=== PATIENT | male | born 1940 | race Caucasian/White ===

== ENCOUNTER 2020-05-11 01:24 | Outpatient (CLI) | payer MEDICARE, SELFPAY ==
[2020-05-11 17:41] LABS: SARS-CoV-2 RNA PCR Negative
== END 2020-05-11 01:25 | disposition home or self-care (01) ==
LOC: ANHCOVIDDT 01:24
PROVIDERS: PCP Internal Medicine; Visit Provider Internal Medicine Gastroenterology
DX: Z01.812 Encounter for preprocedural laboratory examination (principal); Z20.828 Contact with and (suspected) exposure to other viral communicable diseases
CPT/HCPCS: 87635; C9803; U0003

== ENCOUNTER 2020-05-13 01:54 | Day surgery (SDC) | payer MEDICARE, SELFPAY ==
[2020-05-06 15:15] VITALS: BMI 31.4
[2020-05-13 07:42] VITALS: BP 140/63; PULSE 82; RESP 20; TEMP 36.2; O2SAT 95; BMI 31.6
[2020-05-13 08:03] LABS: Glucose Point of Care 94 (65-105)
[2020-05-13] MEDS: LACTATED RINGERS 1,000 ML 150 ML IV CONT (08:04)
--- NOTE | 2020-05-13 08:17 | WPDANESEPPF ---
Anes - Initial Pre Proc Eval Procedure: Operation Date: 05/13/20 08:30 Proposed Procedures p Esophagogastroduodenoscopy & Colonoscopy - Zachary Morley MD Date/Time: 05/13/20 08:17 Surgeon: Zachary Morley MD Pre Op Diagnosis: Iron Deficiency Anemia Patient Data Age: 79 Gender: M Height: 6 ft Weight: 105.6 kg Last Vital Signs Temp 97.2 F L 05/13/20 07:42 Pulse 82 05/13/20 07:42 Resp 20 05/13/20 07:42 BP 140/63 05/13/20 07:42 Pulse Ox 95 05/13/20 07:42 Allergies Allergy/AdvReac Type Severity Reaction Status Date / Time Sulfa (Sulfonamide Allergy Mild Rash Verified 05/13/20 07:40 Antibiotics) codeine Allergy Unknown DIFFICULTY Verified 05/13/20 07:40 BREATHING Home Medications Medication Instructions Recorded Confirmed Type acetaminophen [Tylenol Arthritis] 650 mg PO Q8H PRN 05/06/20 05/06/20 History atorvastatin 40 mg PO DAILY 05/06/20 05/06/20 History cetirizine [Zyrtec] 5 mg PO BID 05/06/20 05/06/20 History citalopram 20 mg PO DAILY 05/06/20 05/06/20 History cyanocobalamin (vitamin B-12) MONTHLY 05/06/20 History folic acid 1 mg PO DAILY 05/06/20 05/06/20 History metformin 1,000 mg PO BID 05/06/20 05/06/20 History triamterene-hydrochlorothiazid 1 tablet PO DAILY 05/06/20 05/06/20 History Laboratory Tests 05/13/20 07:58 POC Capillary Glucose 94 mg/dl mg/dl (65-105) Patient hx anesthesia problems: none Family hx anesthesia problems: none PMFSH Past Medical History Medical History (Updated 05/13/20 @ 08:17 by Uriah Stallworth MD) COPD (chronic obstructive pulmonary disease) Depression Diabetes Hyperlipidemia Hypertension Social History Social History Years smoked: 25 Smoking status: Former smoker Tobacco type: cigarettes Alcohol use details: Rarely Substance use: never Substance use type: does not use Living arrangements: with family Anes - Eval Final PreProcedure Day of Procedure 05/13/20 08:17 Patient weight: overweight Heart: regular rate and rhythm Lungs: clear to auscultation Airway: Mallampati scale class II Neurological: alert and oriented Last oral intake: >/= 8 hours ASA classification: III Emergent: no Anesthetic plan: proceed Anesthesia type and monitoring: general GIVS and standard monitoring Informed Consent: The patient's anesthetic plan and its attendant risks and benefits were discussed with the patient/family/POA. Questions were solicited and answers provided to the satisfaction of the patient/family/POA.
--- NOTE | 2020-05-13 08:38 | WPDGICN ---
Assessment and Plan Assessment and plan (1) Microcytic anemia: Code(s): D50.9 - Iron deficiency anemia, unspecified Status: Acute Assessment and Plan: Patient has anemia of uncertain etiology for this reason colonoscopy an EGD will be performed to evaluate for possible blood loss anemia. Further recommendations will be given after endoscopy. (2) Family history of colon cancer in father: Code(s): Z80.0 - Family history of malignant neoplasm of digestive organs Status: Acute Assessment and Plan: Patient's father had colon cancer. Patient himself is had colon adenoma removed from the colon 2015. plan is for surveillance colonoscopy now and in 5 years. GI Consult Note Consult date/time: 05/13/20 08:38 HPI: Thom Sierra Jr. is a 79 year old male Seen in evaluation at the request of Dr. Alford. Patient was recently found to be anemic. He denies any obvious bleeding. His bowel habits are normal. He denies abdominal pain. His weight has remained stable. He presents today for GI endoscopy. Family history is significant his father had colon cancer. Review of Systems Review of Systems: All systems reviewed & are unremarkable except as noted in HPI and below PMFSH Past Medical History Medical History COPD (chronic obstructive pulmonary disease) Depression Diabetes Hyperlipidemia Hypertension Social History Social History Years smoked: 25 Smoking status: Former smoker Tobacco type: cigarettes Alcohol use details: Rarely Substance use: never Substance use type: does not use Living arrangements: with family Meds Home Medications and Allergies Home Medications Medication Instructions Recorded Confirmed Type acetaminophen [Tylenol Arthritis] 650 mg PO Q8H PRN 05/06/20 05/06/20 History atorvastatin 40 mg PO DAILY 05/06/20 05/06/20 History cetirizine [Zyrtec] 5 mg PO BID 05/06/20 05/06/20 History citalopram 20 mg PO DAILY 05/06/20 05/06/20 History cyanocobalamin (vitamin B-12) MONTHLY 05/06/20 History folic acid 1 mg PO DAILY 05/06/20 05/06/20 History metformin 1,000 mg PO BID 05/06/20 05/06/20 History triamterene-hydrochlorothiazid 1 tablet PO DAILY 05/06/20 05/06/20 History Allergies Allergy/AdvReac Type Severity Reaction Status Date / Time Sulfa (Sulfonamide Allergy Mild Rash Verified 05/13/20 07:40 Antibiotics) codeine Allergy Unknown DIFFICULTY Verified 05/13/20 07:40 BREATHING Vital Signs Vital Signs - 24 hr 05/13/20 07:42 Temperature 97.2 F L Pulse Rate 82 Respiratory Rate 20 Blood Pressure 140/63 Pulse Oximetry 95 Exam Narrative: Exam Narrative: Physical exam reveals patient to be alert. Vital signs stable. HEENT exam unremarkable. Lungs are clear to auscultation and percussion. Heart is without murmur or extra sounds. Abdominal exam bowel sounds are present soft nontender with no organomegaly. Digital external rectal exam is normal. Stool is Hemoccult negative. Labs reveal hemoglobin of 11 hematocrit 35.4, MCV 82.
[2020-05-13] MEDS: BENZOCAINE (*SP) 60 ML SPRAY CAN (HURRICAINE) 1 SPRAY MUCOUS MEM (08:54)
[2020-05-13 09:19] VITALS: BP 98/55; PULSE 66; RESP 14; O2SAT 96
[2020-05-13 09:29] VITALS: BP 117/65; PULSE 70; RESP 21; O2SAT 98
[2020-05-13 09:39] VITALS: BP 118/57; PULSE 68; RESP 22; O2SAT 98
== END 2020-05-13 09:55 | disposition home or self-care (01) ==
PROVIDERS: PCP Internal Medicine; Visit Provider Internal Medicine Gastroenterology
PROC: 0DJ08ZZ Inspection of Upper Intestinal Tract, Via Natural or Artificial Opening Endoscopic (ICD-10-PCS; CPT 43235; principal; 2020-05-13 08:30)
DX: D50.9 Iron deficiency anemia, unspecified (principal); Z12.11 Encounter for screening for malignant neoplasm of colon; K51.40 Inflammatory polyps of colon without complications; K63.5 Polyp of colon; K57.30 Diverticulosis of large intestine without perforation or abscess without bleeding; Z80.0 Family history of malignant neoplasm of digestive organs; I10 Essential (primary) hypertension; E11.9 Type 2 diabetes mellitus without complications; E78.5 Hyperlipidemia, unspecified; J44.9 Chronic obstructive pulmonary disease, unspecified; F32.9 Major depressive disorder, single episode, unspecified; Z87.891 Personal history of nicotine dependence; Z79.84 Long term (current) use of oral hypoglycemic drugs
CPT/HCPCS: 45385; 43235; 88305; J2704; J7120

== ENCOUNTER 2020-05-26 18:27 | Emergency (ER) | payer MEDICARE, SELFPAY ==
--- NOTE | ~2020-05-26 | XR_ITS ---
EXAMINATION: XR finger 3rd LT min 2V DATE: 05/26/2020 19:30 INDICATION: Left hand third digit injury and pain. TECHNIQUE: 3 views of left hand third digit were obtained. COMPARISON: None. FINDINGS: There is a comminuted extra-articular fracture of third distal phalanx. The main distal fra cture fragment demonstrates dorsal displacement, impaction, and palmar angulation. There is mild oste oarthritis of third proximal and distal interphalangeal joints. IMPRESSION: 1. Comminuted extra-articular fracture of third distal phalanx. Reviewed, dictated and finalized at location A. SUPPORT SPECIALIST
[2020-05-26 18:35] VITALS: BP 157/76; PULSE 98; RESP 18; TEMP 36.4; O2SAT 96
[2020-05-26] MEDS: ceFAZolin SODIUM 1 GM VIAL IM (19:34)
[2020-05-26] MEDS: TETANUS,DIPHTHERIA,AC PERTUSSIS ADULT (0.5 ML) BOOSTRIX IM (19:35)
[2020-05-26] MEDS: WATER, STERILE FOR INJECTION 10 ML VIAL XX (19:40)
--- NOTE | 2020-05-26 20:00 | ED.WOUNDLAC ---
HPI - Wound/Laceration General Chief Complaint: Wound/Laceration <Kalpana Donahue PA-C - Last Filed: 05/26/20 21:04> Stated Complaint: laceration to right 3rd finger <YOU Gudino Last Filed: 05/26/20 21:04> Time Seen by Provider: 05/26/20 18:49 <Kalpana Donahue PA-C - Last Filed: 05/26/20 21:04> Source: patient <YOU Gudino Last Filed: 05/26/20 21:04> Mode of arrival: ambulatory <YOU Gudino Last Filed: 05/26/20 21:04> Limitations: no limitations <YOU Gudino Last Filed: 05/26/20 21:04> History of Present Illness HPI narrative: This is a 79 year old [id number] male that presents to the ER for left third finger injury sustained just prior to arrival. Reports he was using a reciprocating saw and he got his hand caught between a part of the saw and the wood he was cutting. Reports a nail injury and fracture associated. He was seen at urgent care for this and sent here for further evaluation. Denies decreased range of motion or numbness. <Kalpana Donahue PA-C - Last Filed: 05/26/20 21:04> Related Data Home Medications: Home Medications Medication Instructions Recorded Confirmed acetaminophen [Tylenol Arthritis] 650 mg PO Q8H PRN 05/06/20 05/06/20 atorvastatin 40 mg PO DAILY 05/06/20 05/06/20 cetirizine [Zyrtec] 5 mg PO BID 05/06/20 05/06/20 citalopram 20 mg PO DAILY 05/06/20 05/06/20 cyanocobalamin (vitamin B-12) MONTHLY 05/06/20 folic acid 1 mg PO DAILY 05/06/20 05/06/20 metformin 1,000 mg PO BID 05/06/20 05/06/20 triamterene-hydrochlorothiazid 1 tablet PO DAILY 05/06/20 05/06/20 <YOU Gudino Last Filed: 05/26/20 21:04> Allergies/Adverse Reactions: Allergies Allergy/AdvReac Type Severity Reaction Status Date / Time Sulfa (Sulfonamide Allergy Mild Rash Verified 05/26/20 18:42 Antibiotics) codeine Allergy Unknown DIFFICULTY Verified 05/26/20 18:42 BREATHING <Kalpana Donahue PA-C - Last Filed: 05/26/20 21:04> Review of Systems Review of Systems: Narrative: CONSTITUTIONAL: Denies fever SKIN: Reports laceration MUSCULOSKELETAL: Reports joint pain, and myalgia. NEUROLOGIC: Denies numbness <Kalpana Donahue PA-C - Last Filed: 05/26/20 21:04> All systems reviewed & are unremarkable except as noted in HPI and below <Kalpana Donahue PA-C - Last Filed: 05/26/20 21:04> [facility] Past Medical History Medical History: Medical History COPD (chronic obstructive pulmonary disease) Depression Diabetes Hyperlipidemia Hypertension <Kalpana Donahue PA-C - Last Filed: 05/26/20 21:04> Social History Social History: Social History Years smoked: 25 Smoking status: Former smoker Tobacco type: cigarettes Substance use: never Substance use type: does not use <Kalpana Donahue PA-C - Last Filed: 05/26/20 21:04> Exam Narrative: Exam Narrative: GENERAL: Well-appearing, well-nourished, and in no acute distress. HEAD: Normocephalic, atraumatic. EYES: EOMI. EXTREMITIES: Normal range of motion. Base of nail of the left third finger is pulled away from the proximal nail fold. Normal sensation SKIN: Warm, dry, no rash. NEURO: No focal deficits. Alert and oriented x3. PSYCH: Normal mood and affect <YOU Gudino Last Filed: 05/26/20 21:04> Course Consultations Consultation #1: Spoke with Dr. Scherer about patient and work-up will follow-up in clinic. <Kalpana Donahue PA-C - Last Filed: 05/26/20 21:04> Date: 05/26/20 <Kalpana Donahue PA-C - Last Filed: 05/26/20 21:04> Time: 20:54 <Kalpana Donahue PA-C - Last Filed: 05/26/20 21:04> Vital Signs Vital signs: Vital Signs Temperature 36.4 C 05/26/20 18:35 Pulse Rate 98 05/26/20 18:35 Respiratory Rate 18 05/26/20 18:35 Blood Pressure 157/76 H 05/26/20 18:35 Pulse Oximetry 96 05/26/20 18:35 Temperature 36.4 C
--- NOTE | 2020-09-11 10:05 | PC.NURSE ---
LATE ENTRY This note is being entered to document information to the patient's record. The following information was omitted on [05/26/2020], by Kalpana ASKEW for order and splint was placed by PA documentation is in the procedure note.]. Vorb for aluminum finger splint to left 3rd finger per Abhishek ASKEW
== END 2020-05-26 21:18 | disposition home or self-care (01) ==
PROVIDERS: Emergency Provider Emergency Medicine; PCP Internal Medicine
DX: S62.623B Displaced fracture of middle phalanx of left middle finger, initial encounter for open fracture (principal); J44.9 Chronic obstructive pulmonary disease, unspecified; F32.9 Major depressive disorder, single episode, unspecified; E11.9 Type 2 diabetes mellitus without complications; E78.5 Hyperlipidemia, unspecified; I10 Essential (primary) hypertension; W29.8XXA Contact with other powered hand tools and household machinery, initial encounter; Z23 Encounter for immunization
CPT/HCPCS: 29130; 73140; 90471; 90715; 96372; 99284; J0690

== ENCOUNTER 2020-05-27 15:28 | Outpatient (CLI) | payer MEDICARE, SELFPAY ==
--- NOTE | ~2020-05-27 | XR_ITS ---
EXAMINATION: XR finger 3rd LT min 2V DATE: 05/27/2020 15:55 INDICATION: Fracture of left hand third distal phalanx. TECHNIQUE: 3 views of left hand third digit were obtained. COMPARISON: Left hand third view radiographs 05/26/2020 FINDINGS: There is a comminuted extra-articular fracture of third distal phalanx. The main distal fra cture fragment demonstrates 2 mm dorsal displacement. There is mild osteoarthritis of third proximal and distal interphalangeal joints. IMPRESSION: 1. Comminuted extra-articular fracture of third distal phalanx. Reviewed, dictated and finalized at location A. OLOGY TRANSCRIPTIONIST
== END 2020-05-27 15:29 | disposition home or self-care (01) ==
PROVIDERS: PCP Internal Medicine; Visit Provider Plastic Surgery
DX: S62.631A Displaced fracture of distal phalanx of left index finger, initial encounter for closed fracture (principal)
CPT/HCPCS: 73140

== ENCOUNTER 2020-07-08 15:05 | Outpatient (CLI) | payer MEDICARE, SELFPAY ==
--- NOTE | ~2020-07-08 | XR_ITS ---
XR finger 3rd LT min 2V 07/08/2020 15:31 Indication: Left third finger fracture follow-up Procedure: 3 views left third finger Comparison: 05/27/2020 Findings: Comminuted mildly displaced fracture left third distal phalanx. There is nonunion fracture. No significant osseous bridging or callus formation. Mild soft tissue swelling. 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 Reviewed, dictated and finalized at location A. 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
== END 2020-07-08 15:06 | disposition home or self-care (01) ==
PROVIDERS: PCP Internal Medicine; Visit Provider Plastic Surgery
DX: S62.633A Displaced fracture of distal phalanx of left middle finger, initial encounter for closed fracture (principal)
CPT/HCPCS: 73140

== ENCOUNTER 2020-07-10 10:49 | Outpatient (CLI) | payer MEDICARE, SELFPAY ==
--- NOTE | 2020-07-10 10:52 | ECG_ITS ---
Measurements Intervals [place] Rate: 94 P: 25 UT: 162 QRS: -26 QRSD: 113 T: 22 QT: 390 QTc: 488 Interpretive Statements SINUS RHYTHM INCOMPLETE RIGHT BUNDLE BRANCH BLOCK BORDERLINE T WAVE ABNORMALITY- INFERIOR LEADS BASELINE ARTIFACT- I, III, AVR, AVL BORDERLINE ECG Electronically Signed On 07-10-2020 11:11:23 TOWER CONTROL OPERATOR by Gregory Miller D.O.
[2020-07-10 11:27] LABS: Anion Gap 7 mmol/L (8-16); Blood Urea Nitrogen 23 mg/dL (9-20); Calcium 8.8 mg/dL (8.4-10.2); Carbon Dioxide 34 mmol/L (22-30); Chloride 97 mmol/L (98-107); Estimated Glomerular Filt Rate 45; Glucose 238 mg/dL (75-110); Potassium 3.5 mmol/L (3.4-5.0); Sodium 138 mmol/L (137-145)
== END 2020-07-10 10:50 | disposition home or self-care (01) ==
PROVIDERS: Anesthesiology; PCP Internal Medicine; Visit Provider Plastic Surgery
DX: Z01.818 Encounter for other preprocedural examination (principal); I10 Essential (primary) hypertension; E11.9 Type 2 diabetes mellitus without complications; I45.10 Unspecified right bundle-branch block
CPT/HCPCS: 36415; 80048; 93005

== ENCOUNTER 2020-07-11 01:27 | Outpatient (CLI) | payer MEDICARE, SELFPAY ==
[2020-07-12 01:24] LABS: SARS-CoV-2 RNA PCR Negative
== END 2020-07-11 01:28 | disposition home or self-care (01) ==
LOC: ANHCOVIDDT 01:28
PROVIDERS: PCP Internal Medicine; Visit Provider Plastic Surgery
DX: Z01.818 Encounter for other preprocedural examination (principal); Z20.828 Contact with and (suspected) exposure to other viral communicable diseases
CPT/HCPCS: 87635; C9803; U0003

== ENCOUNTER 2020-07-15 01:03 | Day surgery (SDC) | payer MEDICARE, SELFPAY ==
[2020-07-09 15:38] VITALS: BMI 31.4
--- NOTE | ~2020-07-15 | XR_ITS ---
XR surgery orthopedic 07/15/2020 16:25 Indication: Intraoperative fixation of the left third finger Procedure: 5 fluoroscopic images of the left third finger. 24 seconds of fluoroscopy. Comparison: 07/08/2020 Findings: Serial images demonstrate internal fixation of distal phalangeal fracture with 2 K wires. F racture fragments in near-anatomic alignment post reduction. Please refer to procedural report for de tails. Impression: 1: Near-anatomic alignment of the left third distal phalangeal fracture status post internal reductio n with 2 K wires. Reviewed, dictated and finalized at location A. RAMMING MANAGER Impression: 1: Near-anatomic alignment of the left third distal phalangeal fracture status post internal reduction with 2 K wires.
--- NOTE | 2020-07-15 07:17 | WPDHPUPDATE1 ---
History and Physical Update Update Date/Time: 07/15/20 07:17 History and Physical has been reviewed, including an updated exam of the patient. There are NO changes in the patient's condition. Risks, benefits, and alternatives have been discussed and questions answered. Patient agrees to proceed with procedure.
--- NOTE | 2020-07-15 08:32 | WPDANESEPPF ---
Anes - Initial Pre Proc Eval Procedure: Operation Date: 07/15/20 13:00 Proposed Procedures p Closed, Possible Open Reduction Internal Fixation with C-Wires or Screws Left Middle Finger Distal Phalanx - Sumanth Lee MD Date/Time: 07/15/20 08:32 Surgeon: Sumanth Lee MD Pre Op Diagnosis: non union fx left 3rd distal phalanx Patient Data Age: 80 Gender: M Height: 1.83 m Weight: 105 kg Allergies Allergy/AdvReac Type Severity Reaction Status Date / Time codeine AdvReac Intermediate PALMS Verified 07/15/20 11:26 HANDS START PEELING Sulfa (Sulfonamide AdvReac Unknown I DON'T Verified 07/15/20 11:26 Antibiotics) REMEMBER IT HAS BEEN SO LONG AGO Home Medications Medication Instructions Recorded Confirmed Type acetaminophen [Tylenol Arthritis] 650 mg PO Q8H PRN 05/06/20 07/15/20 History atorvastatin 40 mg PO DAILY 05/06/20 07/15/20 History cetirizine [Zyrtec] 10 mg PO BID 05/06/20 07/15/20 History citalopram 20 mg PO QAM 05/06/20 07/15/20 History cyanocobalamin (vitamin B-12) 1,000 mcg IM MONTHLY 05/06/20 07/15/20 History folic acid 1 mg PO DAILY 05/06/20 07/15/20 History metformin 1,000 mg PO BID 05/06/20 07/15/20 History triamterene-hydrochlorothiazid 0.5 tablet PO DAILY 05/06/20 07/15/20 History Patient hx anesthesia problems: none Family hx anesthesia problems: none PMFSH Past Medical History Medical History COPD (chronic obstructive pulmonary disease) Depression Diabetes Hyperlipidemia Hypertension Family History Family History (System 05/27/20 @ 11:09 by Nicolle Jameson) Mother Family history of heart disease in male family member before age 55 Other Family history of cardiovascular disease Hypertension Social History Social History (System 05/27/20 @ 11:09 by Nicolle Jameson) Smoking packs per day: 1.25 Smoking cigarettes per day: 25.0 Years smoked: 25 Smoking pack-years: 31.25 Smoking status: Former smoker Tobacco type: cigarettes Smoking end date: 01/21/85 Alcohol intake: current Substance use: never Substance use type: does not use Living arrangements: with family Spiritual care concerns: No Anes - Eval Final PreProcedure Day of Procedure 07/15/20 08:32 Patient weight: obese Heart: regular rate and rhythm Lungs: clear to auscultation and normal air movement Airway: Mallampati scale class II Neurological: alert and oriented Last oral intake: >/= 8 hours ASA classification: III Emergent: no Anesthetic plan: proceed Anesthesia type and monitoring: general GIVS and standard monitoring Informed Consent: The patient's anesthetic plan and its attendant risks and benefits were discussed with the patient/family/POA. Questions were solicited and answers provided to the satisfaction of the patient/family/POA.
[2020-07-15 11:30] VITALS: BP 141/76; PULSE 81; RESP 20; TEMP 36.2; O2SAT 100
[2020-07-15] MEDS: LACTATED RINGERS 1,000 ML 30 ML IV CONT (11:40)
[2020-07-15 11:46] LABS: Glucose Point of Care 116 (65-105)
--- NOTE | 2020-07-15 11:56 | SUR.PREOP ---
1150-PT AWARE SURGEON DELAYS SELF ~45 MINUTES.
--- NOTE | 2020-07-15 14:13 | SUR.PREOP ---
1335-PT AWARE SURGEON FURTHER DELAYS SELF-ANTICIPATED SURGERY TIME NO 1430.
[2020-07-15] MEDS: ceFAZolin 2 GM/D5W 50 ML 2 GM/50 ML BAG IVPB (15:27)
[2020-07-15] MEDS: LIDO 1%/EPINEPHRINE 1:100,000 20 ML VIAL 5 ML INFILTRATE (15:30)
[2020-07-15 16:12] VITALS: BP 125/58; PULSE 68; RESP 21; O2SAT 97
[2020-07-15 16:21] LABS: Glucose Point of Care 89 (65-105)
[2020-07-15 16:40] VITALS: BP 128/62; PULSE 71; RESP 20
[2020-07-15 17:15] VITALS: BP 139/92; PULSE 80; RESP 20
--- NOTE | 2020-07-15 17:29 | SUR.PHASEII ---
1700 - pt started with a right arm tremor. vss. pt denies pain. Dr. Capellan aware and at bedside. outside, updated. dr. Monsivais called and updated on pt's status. 1715 - dr. capellan remains at bedside. pt alert and oriented. pt states that he had a similar episode in his 50's. pt in good spirits. 1725 - tremors subsiding. pt denies pain. pt up to bathroom. 1730 - tremors stopped. pt states that he feels great. dr. capellan talking with pt, discussing procedure.
--- NOTE | 2020-07-15 17:59 | PM.OP ---
Procedure Note - Brief Procedure Note - Brief Date of procedure: 07/15/20 Pre-op diagnosis: non union fx left 3rd distal phalanx Post-op diagnosis: same Procedure performed: ORIF of ununited displaced fracture of the distal phalanx of left middle finger. Anesthesia: MAC and local Surgeon: Sumanth Lee MD Mail Machine Operator: Zachary Estimated blood loss (mL): 0 Tourniquet time (min): 30 Packing: No Pathology: none sent Complications: No immediate complications Condition: stable Disposition: same day
--- NOTE | 2020-07-15 18:05 | PM.PROC ---
Procedure Note - Detailed Date of procedure: 07/15/20 Pre-op diagnosis: non union fx left 3rd distal phalanx Post-op diagnosis: same Procedure performed: Open reduction internal fixation of an ununited displaced fracture of the left middle finger distal phalanx Description of procedure: The digit was marked in the holding area and the patient was taken to the operating room and placed supine on the operating table. A time-out was held and confirmed. He was given IV sedation in the left upper extremity was prepped and draped in the usual fashion. The digit was blocked with 1% lidocaine with epinephrine as a intrathecal block. The digital tourniquet was roll on. The volar midline incision was made through the distal phalanx exposing the profundus insertion and the palmar aspect of the distal phalanx. All fracture sites were identified. There were 2 large fragments of good quality bone. There were 2 small fragments that were left attached to the proximal large fragment. The fracture site was carefully debrided of all scar tissue. The fragments could be anatomically apposed to each other. Two C wires were driven retrograde crisscrossing the distal phalanx and extending into the middle phalanx. This provided satisfactory stabilization. The pins were cut short beneath the skin. The skin wound was closed with running 5 0 nylon suture. A soft bandage was applied. He was discharged home with instructions in wound care and follow-up he has a prescription for hydrocodone 5/325 5. Anesthesia: MAC Surgeon: Sumanth Lee MD Histologic Technician: Zachary Estimated blood loss (mL): 0 Tourniquet time (min): 35 Drains: No Packing: No Pathology: none sent Complications: No immediate complications Condition: stable Disposition: same day
== END 2020-07-15 17:45 | disposition home or self-care (01) ==
PROVIDERS: PCP Internal Medicine; Visit Provider Plastic Surgery
PROC: (CPT 26546; principal; 2020-07-15 13:00)
DX: S62.60 Fracture of unspecified phalanx of finger (principal); Z79.01 Long term (current) use of anticoagulants; J44.9 Chronic obstructive pulmonary disease, unspecified; F32.9 Major depressive disorder, single episode, unspecified; E11.9 Type 2 diabetes mellitus without complications; E78.5 Hyperlipidemia, unspecified; I10 Essential (primary) hypertension; Z87.891 Personal history of nicotine dependence; E66.9 Obesity, unspecified; Z68.30 Body mass index [BMI] 30.0-30.9, adult; W31.9XXD Contact with unspecified machinery, subsequent encounter
CPT/HCPCS: 26546; C1713; J0690; J2704; J3010; J7120

== ENCOUNTER 2020-09-04 14:12 | Outpatient (CLI) | payer MEDICARE, SELFPAY ==
--- NOTE | ~2020-09-04 | XR_ITS ---
XR finger 3rd LT min 2V 09/04/2020 14:31 Indication: Fracture of the left third distal phalanx Procedure: 4 views left third finger Comparison: 07/08/2020 Findings: There is an oblique nondisplaced fracture of the left third distal phalanx with nonunion. T here is a punctate foreign body overlying the tuft of the distal phalanx. There is an overlying colón ge. Osteopenia. Impression: 1: Oblique nondisplaced fracture left third distal phalanx with nonunion. 2: Punctate foreign body in the soft tissues adjacent to the tuft of the distal phalanx. Reviewed, dictated and finalized at location B. ORY SUPERINTENDENT Impression: 1: Oblique nondisplaced fracture left third distal phalanx with nonunion. 2: Punctate foreign body in the soft tissues adjacent to the tuft of the distal phalanx.
== END 2020-09-04 14:13 | disposition home or self-care (01) ==
PROVIDERS: PCP Internal Medicine; Visit Provider Plastic Surgery
DX: S62.633D Displaced fracture of distal phalanx of left middle finger, subsequent encounter for fracture with routine healing (principal); X58.XXXD Exposure to other specified factors, subsequent encounter
CPT/HCPCS: 73140

== ENCOUNTER 2020-09-24 11:41 | Outpatient (CLI) | payer MEDICARE, SELFPAY ==
--- NOTE | ~2020-09-24 | XR_ITS ---
EXAMINATION: XR finger 3rd LT min 2V DATE: 09/24/2020 12:06 INDICATION: Fracture of the left third distal phalanx TECHNIQUE: Dorsal palmar, lateral and 2 oblique views of the left third digit were obtained COMPARISON: 09/04/2020 FINDINGS: No significant interval change in a linear lucent nondisplaced oblique extra-articular fracture acros s the mid diaphysis of the left third distal phalanx. No evident productive changes of healing yet ap parent. No evident osteolysis to suggest secondary osteomyelitis. Again seen is a minute foreign body projecting over the soft tissues overlying the tuft of the distal phalanx. Polyarticular osteoarthri tis, moderate severity at the first carpal metacarpal joint and mild at many of the remaining interph alangeal joints including the third proximal and distal interphalangeal joints. IMPRESSION: 1. No significant interval change in a still ununited oblique fracture of the left third distal phala nx. Reviewed, dictated and finalized at location B. D ATTENDANT IMPRESSION: 1. No significant interval change in a still ununited oblique fracture of the l eft third distal phalanx.
== END 2020-09-24 11:42 | disposition home or self-care (01) ==
PROVIDERS: PCP Internal Medicine; Visit Provider Plastic Surgery
DX: S62.633D Displaced fracture of distal phalanx of left middle finger, subsequent encounter for fracture with routine healing (principal); X58.XXXD Exposure to other specified factors, subsequent encounter
CPT/HCPCS: 73140

== ENCOUNTER 2020-10-01 08:44 | Outpatient (CLI) | payer MEDICARE, SELFPAY | END 2020-10-01 08:45 | disposition home or self-care (01) | LOC: ANHCOVIDVC 08:44 | PROVIDERS: PCP Internal Medicine | DX: Z23 Encounter for immunization (principal) | CPT/HCPCS: 0001A; 91300 ==

== ENCOUNTER 2020-10-19 11:00 | Outpatient (RCR) | payer MEDICARE, SELFPAY ==
--- NOTE | 2020-09-14 11:44 | OTOPEVAL ---
OCCUPATIONAL THERAPY INITIAL EVALUATION REPORT 09/14/20 Thank you for referring Thom Sierra to [facility].? The patient is scheduled to be seen for occupational therapy?1x/week for 5 weeks. Please review, sign, date and return this plan of care ADRIENNE. I agree with and certify that the following plan of care is medically necessary. Referring Physician Date Referring Provider: Sumanth Lee MD *OT Outpatient Evaluation Therapy Assessment Status Assessment Status Assessment Status Evaluation Outpatient Past Medical History Neurological History Hx Neurological Disorders No Significant History Cardiovascular History Hx Hypercholesterolemia Yes Hx Hypertension Yes Respiratory History Hx Asthma Yes Hx Chronic Obstructive Pulmonary Disease Yes (COPD) Gastrointestinal History Hx Gastrointestinal Disorders No Significant History Genitourinary History Hx Genitourinary Disorders No Significant History Musculoskeletal History Hx Back Pain Yes Hx Fractures Yes: LT MIDDLE FRACTURE 2019 Hx Other Musculoskeletal Disorders Yes: Bilateral Carpal Tunnel Release, NON UNION FX LT 3RD DISTAL PHALANX Hematological History Hx Anemia Yes: HX, NO IRON SUPPLEMENTS Endocrine History Hx Diabetes Yes HEENT History Hx Cataracts Yes: BILAT IMPLANTS Hx Sinus Problems Yes: FESS 2004 Integumentary History Hx Skin Disorders No Significant History Reproductive History Hx Reproductive Disorders No Significant History Psychosocial History Hx Anxiety Yes Hx Depression Yes Pain History History of Any Previous or Ongoing No Significant History Instance of Pain Anesthesia History Hx Anesthesia Reactions No Significant History Evaluation Information Problem Diagnosis Stiff left middle finger PIP joint, healing fx to distal phalanx Onset May 2020 Additional Evaluation Detail Surgery to distal phalanx 07/15/20 Pin removal 09/04/20 Subjective Information Patient states he will have a Query Text:As Reported By Patient/ repeat x-ray to the distal Family phalanx next week before his follow up appt with Dr. Lee on 09/25/20. At this time the distal phalanx is still healing and patient is only able to actively bend the DIP. The PIP can be pushed passively. Prior Level of Funct
--- NOTE | 2020-10-19 11:51 | OTOPEVAL ---
OCCUPATIONAL THERAPY RE-EVALUATION REPORT AND DISCHARGE SUMMARY 10/19/20 Thom presents for OT re-evaluation following 5 sessions of therapy. He demonstrates improvement with ROM at all joints of the left middle finger. His pain has reduced to being 0/10 most of the time with some increases to 1/10 with exercises. He currently is independent with active ROM, passive ROM, prolonged-passive ROM with elastic strap, and strengthening with putty. He demonstrates good mechanics with functional pinching (no hyperextension at the DIP joint). He understands the importance of completing his HEP daily for optimal results with ROM and strength. He has no further questions at this time and is in agreement with discharge. Thank you for referring Thom Sierra to [facility].?Please review, sign, date and return this D/C ADRIENNE. I agree with and certify that the following plan of care is medically necessary. Referring Physician Date Referring Provider: Sumanth Lee MD *OT Outpatient Re-Evaluation Evaluation Information Problem Diagnosis Stiff left middle finger PIP joint, healing fx to distal phalanx Onset May 2020 Additional Evaluation Detail Surgery to distal phalanx 07/15/20 Pin removal 09/04/20 Subjective Information Patient states he is able to Query Text:As Reported By Patient/ use the left hand for any/all Family functional tasks. He reports no limitations and has returned to using tools. He reports that the end joint of the left MF continues to be stiff. Pain Assessment Timing of Pain Assessment Timing of Pain Assessment Re-assessment Pain Scale Pain Scale Used Numeric (1 - 10) Self Report Pain Assessment Left Finger, Middle Reported Pain Level 0 Lowest Pain Intensity 0 Greatest Pain Intensity 1 Pain Aggravating Factors Exercise/Activity Pain Score Pain Score 0: Self Report Upper Extremity Range of Motion Finger Range of Motion Left Middle Finger MCP Joint Flexion - Active 90 Middle Finger PIP Joint Flexion - Active 85 Middle Finger DIP Joint Flexion - Active 35 Middle Finger DIP Joint Flexion - 45 Passive Middle Finger Tip to Distal Palmar 4 cm Crease - Active Finger Range of Motion Comments Active ROM has improved by 10* at the MCP joint, 5* at the PIP joint, and 10* at the DIP joint. He continues to have a gap with the MF when attempting to make a full fist and a hook fist. Passively the full fist is WFL. 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
== END 2020-10-19 13:08 | disposition home or self-care (01) ==
LOC: ANHOT 11:00
PROVIDERS: PCP Internal Medicine; Visit Provider Plastic Surgery
DX: M25.642 Stiffness of left hand, not elsewhere classified (principal)
CPT/HCPCS: 97110; 97140; 97165

== ENCOUNTER 2020-10-22 08:42 | Outpatient (CLI) | payer MEDICARE, SELFPAY | END 2020-10-22 08:43 | disposition home or self-care (01) | LOC: ANHCOVIDVC 08:42 | PROVIDERS: PCP Internal Medicine | DX: Z23 Encounter for immunization (principal) | CPT/HCPCS: 0002A; 91300 ==

== ENCOUNTER 2021-01-18 12:34 | Outpatient (CLI) | payer MEDICARE, SELFPAY ==
--- NOTE | ~2021-01-18 | MR_ITS ---
EXAMINATION: MR lumbar spine wo con DATE: 01/18/2021 13:48 INDICATION: Lumbar radiculopathy. TECHNIQUE: Magnetic resonance imaging (MRI) of the lumbar spine was performed without intravenous con trast. Sequences included sagittal T2-weighted FSE, sagittal T2-weighted FS FSE, sagittal T1-weighted FSE, and axial T2-weighted FSE. COMPARISON: Lumbar spine MRI 04/10/2019 FINDINGS: There is 4 degrees levocurvature of lumbar spine. There is 3 mm anterolisthesis of L4 on L5 . L4 is a limbus vertebra. There are Schmorl's nodes at multiple multiple levels. There is moderately decreased disc height at T12-L1 and L1-L2 and mildly decreased disc height at L3-L4. The distal spin al cord signal intensity is normal. The conus medullaris is at T12-L1. 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 The following disc levels are specifically discussed: T12-L1: The disc is bulging. There is mild bilateral facet joint osteoarthritis. There is mild bilate ral neural foraminal stenosis. There is mild central canal stenosis. L1-L2: The disc is bulging. There is moderate right and mild left facet joint osteoarthritis. There i s mild bilateral neural foraminal stenosis. There is mild central canal stenosis. L2-L3: The disc is mildly bulging. There is moderate bilateral facet joint osteoarthritis. There is m ild bilateral neural foraminal stenosis. There is no central canal stenosis. L3-L4: The disc is bulging. There is mild bilateral facet joint osteoarthritis. There is mild bilater al neural foraminal stenosis. There is no central canal stenosis. L4-L5: The disc is bulging and has an annular fissure. There is severe bilateral facet joint osteoart hritis. There is mild bilateral neural foraminal stenosis. There is severe central canal stenosis. L5-S1: The disc is bulging. There is severe right and moderate left facet joint osteoarthritis. There is mild bilateral neural foraminal stenosis. There is mild central canal stenosis. IMPRESSION: 1. Severe central canal stenosis at L4-L5. Otherwise moderate lumbar spondylosis. Findings stable fro m 04/10/19. Reviewed, dictated and finalized at location A. IMPRESSION: 1. Severe central canal stenosis at L4-L5. Otherwise moderate lumbar spondylosi s. Findings stable from 04/10/19.
== END 2021-01-18 12:35 | disposition home or self-care (01) ==
PROVIDERS: PCP Internal Medicine; Visit Provider Internal Medicine
DX: M54.42 Lumbago with sciatica, left side (principal); M54.41 Lumbago with sciatica, right side; G89.29 Other chronic pain; M47.896 Other spondylosis, lumbar region
CPT/HCPCS: 72148

== ENCOUNTER 2021-10-07 15:08 | Outpatient (CLI) | payer MEDICARE, SELFPAY ==
--- NOTE | ~2021-10-07 | US_ITS ---
US retroperitoneal limited DATE: 10/07/2021 15:58 INDICATION: Stage IIIa chronic renal disease TECHNIQUE: Real-time imaging of the urinary bladder and kidneys COMPARISON: None FINDINGS: . The right kidney measures approximately 10.4 cm, the left kidney 10.6 cm. No hydronephros is. No renal mass lesion is evident. The urinary bladder is unremarkable other than impression by pro state enlargement.. IMPRESSION: No renal mass lesion or hydronephrosis is evident Reviewed, dictated and finalized at [facility]. Reviewed, dictated and finalized at location A.
== END 2021-10-07 15:09 | disposition home or self-care (01) ==
PROVIDERS: PCP Internal Medicine; Visit Provider Internal Medicine
DX: N18.31 Chronic kidney disease, stage 3a (principal)
CPT/HCPCS: 76775

== ENCOUNTER 2022-11-05 08:01 | Emergency (ER) | payer MEDICARE, SELFPAY ==
--- NOTE | ~2022-11-05 | XR_ITS ---
EXAMINATION: XR finger 2nd LT min 2V INDICATION: Left second finger pain TECHNIQUE: Three views of the left second finger are obtained. COMPARISON: None available FINDINGS: There is an oblique intra-articular fracture at the palmar base of the second distal phalan x involving less than 50% of the articular surface. The fracture fragment is proximally migrated into the distal interphalangeal joint space. There is mild osteoarthritis of the interphalangeal joints. IMPRESSION: 1. Oblique intra-articular fracture at the palmar base of the second distal phalanx with migration of the fracture fragment into the distal interphalangeal joint space. Reviewed, dictated and finalized at location A. IMPRESSION: 1. Oblique intra-articular fracture at the palmar base of the second distal pha lanx with migration of the fracture fragment into the distal interphalangeal griselda int space.
[2022-11-05 08:06] VITALS: BP 143/92; PULSE 80; RESP 16; TEMP 36.6; O2SAT 98
--- NOTE | 2022-11-05 09:15 | ED.WOUNDLAC ---
HPI - Wound/Laceration General Chief Complaint: Wound/Laceration <Luke Gupta MD - Last Filed: 11/05/22 13:55> Stated Complaint: Finger lac <Luke Gupta MD - Last Filed: 11/05/22 13:55> Time Seen by Provider: 11/05/22 08:13 <Luke Gupta MD - Last Filed: 11/05/22 13:55> History of Present Illness HPI narrative: Patient is an 82-year-old male who presents ER with left second digit pain. He struck himself with a rubber mallet yesterday. He has a 2 cm laceration over the middle phalanx and PIP. Has limited range of motion due to pain. No numbness or tingling. No additional concerns. <Luke Gupta MD - Last Filed: 11/05/22 13:55> Related Data Home Medications: Home Medications Medication Instructions Recorded Confirmed acetaminophen 650 mg 650 mg PO Q8H PRN Pain 05/06/20 07/15/20 tablet,extended release atorvastatin 40 mg tablet 40 mg PO DAILY 05/06/20 07/15/20 cetirizine 10 mg tablet (Zyrtec) 10 mg PO BID 05/06/20 07/15/20 citalopram 20 mg tablet 20 mg PO QAM 05/06/20 07/15/20 cyanocobalamin (vitamin B-12) 1,000 mcg IM MONTHLY 05/06/20 07/15/20 1,000 mcg/mL injection solution folic acid 1 mg tablet 1 mg PO DAILY 05/06/20 07/15/20 metformin 1,000 mg tablet 1,000 mg PO BID 05/06/20 07/15/20 triamterene 75 0.5 tablet PO DAILY 05/06/20 07/15/20 mg-hydrochlorothiazide 50 mg tablet <Luke Gupta MD - Last Filed: 11/05/22 13:55> Allergies/Adverse Reactions: Allergies Allergy/AdvReac Type Severity Reaction Status Date / Time codeine AdvReac Intermediate PALMS Verified 11/05/22 08:10 HANDS START PEELING Sulfa (Sulfonamide AdvReac Unknown I DON'T Verified 11/05/22 08:10 Antibiotics) REMEMBER IT HAS BEEN SO LONG AGO <Luke Gupta MD - Last Filed: 11/05/22 13:55> Review of Systems Musculoskeletal: Musculoskeletal: Reports arthralgias and Denies joint swelling <Luke Gupta MD - Last Filed: 11/05/22 13:55> Integumentary/Breasts: Skin/Breast: Denies erythema and Denies rash <Luke Gupta MD - Last Filed: 11/05/22 13:55> Comments: Laceration right second digit <Luke Gupta MD - Last Filed: 11/05/22 13:55> Neurologic: Denies focal weakness and Denies numbness <Luke Gupta MD - Last Filed: 11/05/22 13:55> PMFSH Past Medical History Medical History: Medical History COPD (chronic obstructive pulmonary disease) Depression Diabetes Hyperlipidemia Hypertension <Luke Gupta MD - Last Filed: 11/05/22 13:55> Family History Family History: Family History (System 05/27/20 @ 11:09 by Nicolle Jameson) Mother Family history of heart disease in male family member before age 55 Other Family history of cardiovascular disease Hypertension <Luke Gupta MD - Last Filed: 11/05/22 13:55> Social History Social History: Social History (System 05/27/20 @ 11:09 by Nicolle Jameson) Smoking packs per day: 1.25 Smoking cigarettes per day: 25.0 Years smoked: 25 Smoking pack-years: 31.25 Smoking status: Former smoker Tobacco type: cigarettes Smoking end date: 01/21/85 Alcohol intake: current Alcohol use details: Rarely Substance use: never Substance use type: does not use Living arrangements: with family Spiritual care concerns: No <Luke Gupta MD - Last Filed: 11/05/22 13:55> Exam Narrative: GENERAL: Well-appearing, well-nourished, and in no acute distress. HEAD: Normocephalic, atraumatic. HEART: Regular rate and rhythm. Normal peripheral pulses. EXTREMITIES: Left second digit with limited range of motion due to injury. Tender at the PIP and DIP. Laceration over the middle phalanx and DIP 2 cm in length. Seems to be a flap. No bone or tendon seen in a bloodless field. SKIN: Warm, dry, no rash. NEURO: No focal deficits. Alert and oriented x3. PSYCH: Nor
[2022-11-05] MEDS: LIDOCAINE HCL 1% LOCAL INJ 10 ML VIAL 5 ML INFILTRATE (09:23)
[2022-11-05 11:13] VITALS: BP 127/74; PULSE 69; RESP 18; O2SAT 98
== END 2022-11-05 11:14 | disposition home or self-care (01) ==
PROVIDERS: Emergency Provider Emergency Medicine; PCP Internal Medicine
DX: S62.631A Displaced fracture of distal phalanx of left index finger, initial encounter for closed fracture (principal); S61.211A Laceration without foreign body of left index finger without damage to nail, initial encounter; J44.9 Chronic obstructive pulmonary disease, unspecified; E11.9 Type 2 diabetes mellitus without complications; E78.5 Hyperlipidemia, unspecified; I10 Essential (primary) hypertension; Z79.84 Long term (current) use of oral hypoglycemic drugs; Z87.891 Personal history of nicotine dependence; W27.0XXA Contact with workbench tool, initial encounter
CPT/HCPCS: 12001; 29130; 73140; 99284

== ENCOUNTER 2023-10-17 14:00 | Outpatient (CLI) | payer MEDICARE, SELFPAY ==
--- NOTE | ~2023-10-17 | US_ITS ---
EXAMINATION: US arterial ankle brachial ind DATE: 10/17/2023 15:53 INDICATION: Peripheral vascular disease, unspecified. TECHNIQUE: Segmental pressures and plethysmographic and Doppler waveforms of the brachial and lower e xtremity arteries were obtained. COMPARISON: None. FINDINGS: Right and left brachial artery pressures of 143 mm Hg and 137 mm Hg, respectively, are concordant (no rmal difference <= 30 mmHg). The right ankle-brachial index (JENNIFER) is 1.09 (normal >= 0.9-1.0). The right great toe-brachial index (TBI) is 0.76 (normal >= 0.65). Arterial Doppler waveforms are biphasic at the ankle. The left JENNIFER is 0.99. The left TBI is 0.55. Arterial Doppler waveforms are biphasic at the ankle. IMPRESSION: 1. Mildly decreased left JENNIFER and TBI, consistent with left-sided arterial occlusive disease. Reviewed, dictated and finalized at location A. IMPRESSION: 1. Mildly decreased left JENNIFER and TBI, consistent with left-sided arterial occlu sive disease.
== END 2023-10-17 14:01 | disposition home or self-care (01) ==
PROVIDERS: PCP Internal Medicine; Visit Provider Physician Assistant
DX: I73.9 Peripheral vascular disease, unspecified (principal); M79.604 Pain in right leg; M79.605 Pain in left leg
CPT/HCPCS: 93922

== ENCOUNTER 2023-11-28 14:16 | Outpatient (CLI) | payer MEDICARE, SELFPAY ==
--- NOTE | ~2023-11-28 | XR_ITS ---
EXAMINATION: XR lumbar spine min 4V DATE: 11/28/2023 13:32 INDICATION: Spinal stenosis, lumbar region. TECHNIQUE: 5 views of lumbar spine including standing views and flexion and extension views were obta ined. COMPARISON: Lumbar spine MRI 11/28/2023 FINDINGS: There is 6 degrees levocurvature of lumbar spine. There is 3 mm retrolisthesis of L1 on L2 and 3 mm anterolisthesis of L4 on L5. Vertebral body heights are normal. There is moderately decrease d disc height at T12-L1 and L1-L2. There is multilevel severe facet joint osteoarthritis. There is no abnormal motion on flexion or extension. IMPRESSION: 1. Moderate lumbar spondylosis. Reviewed, dictated and finalized at location A.
--- NOTE | ~2023-11-28 | MR_ITS ---
MRI of the lumbar spine Clinical History: Spinal stenosis Technique: Axial T2-weighted images, and sagittal T1-weighted, T2-weighted, and and T2 fat-sat images were acquired. COMPARISON: 01/18/2021 Findings: No acute fracture seen. There is minimal grade 1 anterolisthesis of L4 over L5. No suspicio us bone marrow signal abnormalities seen. At L1-L2, there is moderate to advanced degenerative disc narrowing. Minimal disc bulge present with moderate severe facet arthropathy. No central canal stenosis. There is mild right neural foraminal na rrowing. Left neural foramen preserved. At L2-L3, there is no significant disc bulge or herniation. There is severe facet arthropathy. No jonny tral canal stenosis or neural foraminal narrowing. At L3-L4, there is mild disc bulge with moderate to advanced facet arthropathy. No central canal sten osis. There is mild right neural foraminal narrowing, and minimal left neural foraminal narrowing. At L4-L5, there is diffuse disc bulge with severe facet arthropathy, resulting in severe spinal canal stenosis/thecal sac compression. There is mild bilateral neural foraminal narrowing. At and L5-S1, there is minimal disc bulge with advanced facet arthropathy. No central canal stenosis or neural foraminal narrowing. Paravertebral soft tissues are unremarkable. Impression: Severe degenerative spondylosis at L4-L5, as detailed above. Mild degenerative change at the remainder of the lumbar spine, as above. Reviewed, dictated and finalized at [facility]. Impression: Severe degenerative spondylosis at L4-L5, as detailed above. Mild degenerative change at the remainder of the lumbar spine, as above.
--- NOTE | 2023-11-28 14:45 | NEURO_ITS ---
Impression: # Complains of pain in lower extremities, more so at night and on walking.Known Diabetic for more than 5 years with h/o spinal stenosis,as well. # Motor/Sensory asymmetrical neuropathy. # Neurogenic changes on Needle/EMG exam. # Clinical correlation recommended; Possibility of superimposed dysfunction secondary to spinal stenosis cannot be ruled out. Nerve Conduction Studies Anti Sensory Summary Table Stim Site NR Peak (ms) P-T Amp (?V) Site1 Site2 Delta-P (ms) Dist (cm) Vargas (m/s) Left Sup Fibular Anti Sensory (Ant Lat Mall) NO RESPONSE 14 cm NR 14 cm Ant Lat Mall 16.0 Right Sup Fibular Anti Sensory (Ant Lat Mall) 14 cm 3.8 11.9 14 cm Ant Lat Mall 3.8 16.0 42 Left Sural Anti Sensory (Lat Mall) NO RESPONSE Calf NR Calf Lat Mall 16.0 Right Sural Anti Sensory (Lat Mall) NO RESPONSE Calf NR Calf Lat Mall 16.0 Motor Summary Table Stim Site NR Onset (ms) O-P Amp (mV) Site1 Site2 Delta-0 (ms) Dist (cm) Vargas (m/s) Left Peroneal Motor (Vastus Med) Ankle 4.7 1.1 Popit Ankle 11.6 46.0 40 Popit 16.3 0.6 Right Peroneal Motor (Vastus Med) Ankle 4.3 0.7 Popit Ankle 10.6 43.0 41 Popit 14.9 0.7 Left Tibial Motor (Abd Garrido Brev) Ankle 4.5 0.4 Knee Ankle 10.6 45.0 42 Knee 15.1 0.2 Right Tibial Motor (Abd Garrdio Brev) NO RESPONSE Ankle NR Knee Ankle 0.0 Knee NR F Wave Studies NR F-Lat (ms) L-R F-Lat (ms) Left Peroneal (Mrkrs) (EDB) 55.02 1.45 Right Peroneal (Mrkrs) (EDB) 53.57 1.45 Left Tibial (Mrkrs) (Abd Hallucis) DISPERSED RESPONSE NR Right Tibial (Mrkrs) (Abd Hallucis) NO RESPONSE NR EMG Side Muscle Nerve Root Ins Act Fibs Amp Dur Recrt Comment Right AntTibialis Dp Br Fibular L4-5 Nml Nml Nml >12ms +1 Right Gastroc Tibial S1-2 Nml Nml Nml >12ms +2 Right Fibularis Long Sup Br Fibular L5-S1 Nml Nml Nml >12ms +1 Right Flex Dig Long Tibial L5-S2 Nml Nml Nml >12ms +2 Right Ext Dig Brev Dp Br Fibular L5, S1 Nml Nml Nml >12ms +3 Left AntTibialis Dp Br Fibular L4-5 Nml Nml Nml >12ms +1 Left Gastroc Tibial S1-2 Nml Nml Nml >12ms +1 Left Fibularis Long Sup Br Fibular L5-S1 Nml Nml Nml >12ms +1 Left Flex Dig Long Tibial L5-S2 Nml Nml Nml >12ms +1 Left Ext Dig Brev Dp Br Fibular L5, S1 Nml Nml Nml >12ms +3 MTDD
== END 2023-11-28 14:17 | disposition home or self-care (01) ==
LOC: ANHNEURO 14:16
PROVIDERS: PCP Internal Medicine; Visit Provider Physician Assistant
DX: G62.9 Polyneuropathy, unspecified (principal); M48.061 Spinal stenosis, lumbar region without neurogenic claudication; M47.896 Other spondylosis, lumbar region; M51.36 Other intervertebral disc degeneration, lumbar region
CPT/HCPCS: 72110; 72148; 95886; 95910

== ENCOUNTER 2024-01-24 13:25 | Emergency (ER) | payer MEDICARE, SELFPAY ==
[2024-01-24 13:39] VITALS: BP 139/64; PULSE 83; RESP 18; TEMP 36.6; O2SAT 100
--- NOTE | 2024-01-24 14:09 | ED.URI ---
HPI - URI/Sore Throat General Chief Complaint: Upper Respiratory Infection Stated Complaint: coughing, phelgm Time Seen by Provider: 01/24/24 14:00 Source: patient, RN notes reviewed and old records reviewed Mode of arrival: ambulatory Limitations: no limitations History of Present Illness HPI Narrative: 83 year old male presents to [facility] care with complaints of cough for the past 2 weeks with some sinus congestion and drainage and some sore throat and wheezing. Patient reports that he has not had a fever denies any shortness of breath, reports that he has used his inhaler as ordered. Patient reports history of sunus problems and previous sinus surgery. Patient states that he did home COVId test last night which was negative. MD elicited complaint: cough, rhinorrhea, nasal congestion and sinus pain Pertinent past history: sinusitis, COPD, asthma and other (previous sinus surgery) Onset (ago): week(s) (2) Severity: moderate Able to tolerate fluids by mouth: Yes Treatments prior to arrival: other (inhaler, antihistamine,) Related Data Home Medications Medication Instructions Recorded Confirmed cetirizine 10 mg tablet (Zyrtec) 10 mg PO BID 05/06/20 01/24/24 triamterene 75 0.5 tablet PO DAILY 05/06/20 01/24/24 mg-hydrochlorothiazide 50 mg tablet azelastine 137 mcg (0.1 %) nasal 137 mcg intranasal Q12H 11/09/22 01/24/24 spray famotidine 40 mg tablet 40 mg PO DAILY 11/09/22 01/24/24 ferrous sulfate 324 mg (65 mg 324 mg PO DAILY 11/09/22 01/24/24 iron) tablet,delayed release fluticasone 250 mcg-salmeterol 50 1 inh inhalation BID 11/09/22 01/24/24 mcg/dose blistr powdr for inhalation fluticasone fur. 200 mcg-umeclid 1 inh inhalation DAILY 11/09/22 01/24/24 62.5 mcg-vilant 25 mcg inhalat.powder (Trelegy Ellipta) montelukast 10 mg tablet 10 mg PO DAILY 11/09/22 01/24/24 ranitidine HCl 150 mg tablet 150 mg PO DAILY 11/09/22 01/24/24 Allergies Allergy/AdvReac Type Severity Reaction Status Date / Time codeine AdvReac Intermediate PALMS Verified 01/24/24 14:15 HANDS START PEELING Sulfa (Sulfonamide AdvReac Unknown I DON'T Verified 01/24/24 14:15 Antibiotics) REMEMBER IT HAS BEEN SO LONG AGO paroxetine [From Paxil] AdvReac Other Verified 01/24/24 14:16 Review of Systems Review of Systems: CONSTITUTIONAL:Reports some malaise, Reports no chills, sweats, or fever. EYES: Denies visual changes, redness, or discharge. ENT: Reports rhinorrhea, congestion, sinus pain,no otalgia and positive for sore throat. CARDIOVASCULAR: Denies chest pain, palpitations, or edema. RESPIRATORY: Reports cough.occasional wheezing? Denies dyspnea. GASTROINTESTINAL: Denies abdominal pain, nausea, vomiting, diarrhea SKIN: Denies rash or itching. MUSCULOSKELETAL: Denies myalgia. NEUROLOGIC: Denies headache. All systems reviewed & are unremarkable except as noted in HPI and below PMFSH Past Medical History Medical History Anxiety Asthma COPD (chronic obstructive pulmonary disease) Depression Diabetes Hyperlipidemia Hypertension Surgical History Surgical History H/O sinus surgery History of carpal tunnel release of both wrists History of cataract surgery bilateral Family History Family History Mother Family history of heart disease in male family member before age 55 Father Lung cancer Other Family history of cardiovascular disease Hypertension Social History Social History Smoking packs per day: 1.25 Smoking cigarettes per day: 25.0 Years smoked: 25 Smoking pack-years: 31.25 Smoking status: Former smoker Tobacco type: cigarettes Smoking end date: 01/21/85 Alcohol intake: current Alcohol use details: Rarely Substance use:
== END 2024-01-24 14:52 | disposition home or self-care (01) ==
PROVIDERS: Emergency Provider Registered Nurse; PCP Emergency Medicine
DX: R05.1 Acute cough (principal); J32.9 Chronic sinusitis, unspecified; Z87.891 Personal history of nicotine dependence; J44.9 Chronic obstructive pulmonary disease, unspecified; E11.9 Type 2 diabetes mellitus without complications; E78.5 Hyperlipidemia, unspecified; I10 Essential (primary) hypertension
CPT/HCPCS: 99213; G0463

== ENCOUNTER 2024-05-24 17:33 | Inpatient (IN) | payer MEDICARE, SELFPAY ==
--- NOTE | ~2024-05-24 | CT_ITS ---
CT abdomen pelvis w con Ordering provider: Kalpana Donahue PA-C History: 83 years Male with . RLQ pain . Comparison: None. Technique: CT abdomen and pelvis with IV and without oral contrast. Automated exposure control and it erative reconstruction technique were employed. The dose-length product was 1149.97 mGy-cm. 100 mL Om nipaque 350 was given IV. Findings: VISUALIZED LOWER CHEST: Dependent atelectatic changes. UPPER ABDOMINAL ORGANS: Liver: Tiny hypodensities in the both lobes of the liver suggestive of cysts. Ultrasound confirmation advised. Gallbladder: Normal. Spleen: Normal. Stomach/duodenum: Normal. Pancreas: Normal. Adrenals: Normal. Kidneys: Small cyst in the right kidney mid and pole. Tiny cyst in the right kidney lower pole. Tiny cyst in the left kidney upper pole. Slight enhancement of the wall of the renal pelvis bilaterally wh ich may indicate pyelonephritis. Clinical correlation advised. Bilateral perinephric fat stranding is seen. No ureteric stones. PELVIC ORGANS: The bladder shows thickened wall with underfilling. Further evaluation advised. Enlarg ed prostate. BOWEL AND MESENTERY: Colon: No evidence of a diverticulitis. Normal appendix. Small Bowel: Normal. No obstruction. Peritoneum/mesentery: No free air or free fluid. No mesenteric lymphadenopathy. RETROPERITONEUM: Mild atheromatous disease of the abdominal aorta. Narrowing of the origin of the ce liac artery. No retroperitoneal lymphadenopathy. MUSCULOSKELETAL: Superficial soft tissues: Bilateral fat containing inguinal hernias. Small fat-containing umbilical h ernia. The superficial soft tissues are normal. Bones: Age appropriate degenerative changes of the spine. Postoperative changes in the lower lumbar a megan. Bilateral sacroiliitis. Hypodensity seen in both scrotums. IMPRESSION: 1. No evidence of appendicitis, diverticulitis or intestinal obstruction 2. Slight enhancement of the renal pelvis and ureters wall which raises the possibility of infection . 3. Constipation. 4. Thickened wall of the urinary bladder. Evaluation for cystitis advised. Enlarged prostate. 5. Small cysts in the liver. Ultrasound evaluation advised. 6. Bilateral inguinal hernias with bilateral hydrocele. Reviewed, dictated and finalized at location A. IMPRESSION: 1. No evidence of appendicitis, diverticulitis or intestinal obstruction 2. Slight enhancement of the renal pelvis and ureters wall which raises the po ssibility of infection. 3. Constipation. 4. Thickened wall of the urinary bladder. Evaluation for cystitis advised. Enl arged prostate. 5. Small cysts in the liver. Ultrasound evaluation advised. 6. Bilateral inguinal hernias with bilateral hydrocele.
--- NOTE | ~2024-05-24 | US_ITS ---
TESTICULAR ULTRASOUND (Doppler ultrasound interrogation techniques used as needed for this exam.) Ordering provider: Vanessa Suresh MD History: . RULE OUT TESTICULAR TORSION . Comparison: None. FINDINGS: TESTICLES: Normal in size. The right measures 5.2x 3.3x 3.5 cm and the left measures 5x 2.2x 2.6 cm. Normal echogenicity bilaterally without mass lesion. Increased vascularity on the right side. EPIDIDYMIDES: Increased vascularity on the right. The left is Normal HYDROCELE: Large septated bilaterally. VARICOCELE: None. OTHER ABNORMALITY: None seen. IMPRESSION: Enlarged hyperemic right testicle suggestive of epididymoorchitis Bilateral septated hydroceles. Othe rwise, normal testicular ultrasound. Reviewed, dictated and finalized at location A. IMPRESSION: Enlarged hyperemic right testicle suggestive of epididymoorchitis Bilateral sep tated hydroceles. Otherwise, normal testicular ultrasound.
[2024-05-24 17:55] VITALS: BP 116/67; PULSE 118; RESP 18; TEMP 36.7; O2SAT 100
--- NOTE | 2024-05-24 17:58 | ED.ABDPAIN ---
HPI - Abdominal Pain General Chief Complaint: Abdominal Pain Stated Complaint: pain to abdomen and groin Time Seen by Provider: 05/24/24 17:58 Focused HPI: This is a 83 year old male that presents to the ER for abdominal pain. Ongoing since last night. Reports he has been having trouble with constipation. Reports he is having sharp right lower quadrant pain. The right lower quadrant pain started this morning. Denies fever, dysuria, hematuria. GENERAL: Well-appearing, well-nourished, and in no acute distress. HEAD: Normocephalic, atraumatic. CHEST: Clear to auscultation. ?No respiratory distress. HEART: Regular rate and rhythm.? NEURO: ?Alert and oriented x3. Patient screened in triage and initial orders placed.? ?Additional care and disposition to be based upon?diagnostic testing and treatment. Related Data Home Medications Medication Instructions Recorded Confirmed cetirizine 10 mg tablet (Zyrtec) 10 mg PO BID 05/06/20 04/03/24 azelastine 137 mcg (0.1 %) nasal 137 mcg intranasal Q12H 11/09/22 04/03/24 spray famotidine 40 mg tablet 40 mg PO DAILY 11/09/22 04/03/24 fluticasone 250 mcg-salmeterol 50 1 inh inhalation BID 11/09/22 04/03/24 mcg/dose blistr powdr for inhalation fluticasone fur. 200 mcg-umeclid 1 inh inhalation DAILY 11/09/22 04/03/24 62.5 mcg-vilant 25 mcg inhalat.powder (Trelegy Ellipta) Allergies Allergy/AdvReac Type Severity Reaction Status Date / Time codeine AdvReac Intermediate PALMS Verified 05/09/24 11:52 HANDS START PEELING Sulfa (Sulfonamide AdvReac Unknown I DON'T Verified 05/09/24 11:52 Antibiotics) REMEMBER IT HAS BEEN SO LONG AGO paroxetine [From Paxil] AdvReac Other Verified 05/09/24 11:52 PMFSH Past Medical History Medical History Anxiety Asthma COPD (chronic obstructive pulmonary disease) Depression Diabetes Hyperlipidemia Hypertension Surgical History Surgical History H/O sinus surgery History of carpal tunnel release of both wrists History of cataract surgery bilateral Family History Family History Mother Family history of heart disease in male family member before age 55 Father Lung cancer Other Family history of cardiovascular disease Hypertension Social History Social History Smoking packs per day: 1.25 Smoking cigarettes per day: 25.0 Years smoked: 25 Smoking pack-years: 31.25 Smoking status: Former smoker Tobacco type: cigarettes Smoking end date: 01/21/85 Alcohol intake: current Alcohol use details: Rarely Substance use: never Substance use type: does not use Do You Feel Safe in your Home?: Yes Lack of Transportation: No Lack of Food: Never True Current Housing: I Have Housing Concerned About Future Housing: No Difficulty Paying Gas/Electric Bills: No Difficulty Paying for Meds: No Currently Unemployed: No Education: Trade/Vocational Certificate Difficulty w/ Childcare or Family Care: No Living arrangements: with family Spiritual care concerns: No Course Vital Signs Vital signs: Vital Signs Temperature 98.0 F 05/24/24 17:55 Pulse Rate 118 H 05/24/24 17:55 Respiratory Rate 18 05/24/24 17:55 Blood Pressure 116/67 05/24/24 17:55 Pulse Oximetry 100 05/24/24 17:55 Oxygen Delivery Room Air 05/24/24 17:55 Temperature 98.0 F 05/24/24 17:55 Pulse Rate 118 H 05/24/24 17:55 Respiratory Rate 18 05/24/24 17:55 Blood Pressure 116/67 05/24/24 17:55 Pulse Oximetry 100 05/24/24 17:55 Oxygen Delivery Room Air 05/24/24 17:55 Discharge Plan Discharge Instructions: Antibiotic Form Prescriptions: No Action fluticasone propion-salmeterol 250-50 mcg/dose blister with device 1 inh inhalation BID famotidine 40 mg tablet 40 mg PO DAILY azelastine 137 mcg (0.1 %) aerosol,spray 137 mcg intranasal Q12H Rx Instructions: administer into each nostril Trelegy Ellipta 200-62.5-25 mcg blister with device 1 inh inhalation DAILY cetirizine [Zyrtec] 10 mg Tablet 10 mg PO BID cyanocobalamin (vitamin B-12) 1,000 mcg/mL solution 1,000 mcg IM MONTHLY Qty: 10 0RF atorvastatin 40 mg tablet 40 mg PO DAILY Qty: 90 3RF folic acid 1 mg tablet 1 mg PO DAILY Qty: 90 2RF citalopram 20 mg tablet 20 mg PO QAM Qty: 90 2RF lisinopril 5 mg tablet 5 mg PO DAILY Qty: 90 2RF tamsulosin 0.4 mg capsule 0.4 mg PO DAILY Qty: 90 3RF glipizide 5 mg tablet extended release 24hr 5 mg PO DAILY Qty: 90 2RF Follow-up/Referrals: Demarcus Mancera DO [Primary Care Provider] -
--- NOTE | 2024-05-24 18:50 | ECG_ITS ---
Test Date: 2024-05-24 18:53:42 Measurements Intervals [place] Rate: 99 P: 52 SC: 132 QRS: -16 QRSD: 97 T: 40 QT: 347 QTc: 447 Interpretive Statements SINUS RHYTHM INCOMPLETE RIGHT BUNDLE BRANCH BLOCK BASELINE ARTIFACT- V2-V3 BORDERLINE ECG No previous ECG available for comparison Electronically Signed On 05-25-2024 08:07:39 CDT by Gregory Miller D.O.
--- NOTE | 2024-05-24 19:15 | ED.ABDPAIN ---
HPI - Abdominal Pain General Chief Complaint: Abdominal Pain Stated Complaint: pain to abdomen and groin Time Seen by Provider: 05/24/24 17:58 Source: patient and family Mode of arrival: ambulatory Limitations: no limitations History of Present Illness HPI narrative: 83 YEARS OLD WHITE MALE CAME TO THE ED COMPLAINING OF SHARP STABBING PAIN AT THE RIGHT GROIN AREA RADIATING TO RIGHT TESTICLE IT STARTED YESTERDAY MORNING. WORSE WITH ANY MOVEMENT, CERTAIN POSITION, NOTHING MAKE IT BETTER. PATIENT REPORTS SOME PAIN AT THE RIGHT LOWER QUADRANT AREA HE DENIES ANY FEVER, CHILLS, NAUSEA, VOMITING. HISTORY OF LOWER BACK SURGERY L4 L5-4 WEEKS AGO. HISTORY OF DIABETES, HYPERTENSION, HYPERLIPIDEMIA, COPD, HE IS NOT ON BLOOD THINNER. DENIES HISTORY OF ABDOMINAL SURGERY Related Data Home Medications Medication Instructions Recorded Confirmed cetirizine 10 mg tablet (Zyrtec) 10 mg PO BID 05/06/20 04/03/24 azelastine 137 mcg (0.1 %) nasal 137 mcg intranasal Q12H 11/09/22 04/03/24 spray famotidine 40 mg tablet 40 mg PO DAILY 11/09/22 04/03/24 fluticasone 250 mcg-salmeterol 50 1 inh inhalation BID 11/09/22 04/03/24 mcg/dose blistr powdr for inhalation fluticasone fur. 200 mcg-umeclid 1 inh inhalation DAILY 11/09/22 04/03/24 62.5 mcg-vilant 25 mcg inhalat.powder (Trelegy Ellipta) Allergies Allergy/AdvReac Type Severity Reaction Status Date / Time codeine AdvReac Intermediate PALMS Verified 05/09/24 11:52 HANDS START PEELING Sulfa (Sulfonamide AdvReac Unknown I DON'T Verified 05/09/24 11:52 Antibiotics) REMEMBER IT HAS BEEN SO LONG AGO paroxetine [From Paxil] AdvReac Other Verified 05/09/24 11:52 Review of Systems Review of Systems: All systems reviewed & are unremarkable except as noted in HPI and below PMFSH Past Medical History Medical History Anxiety Asthma COPD (chronic obstructive pulmonary disease) Depression Diabetes Hyperlipidemia Hypertension Surgical History Surgical History H/O sinus surgery History of carpal tunnel release of both wrists History of cataract surgery bilateral Family History Family History Mother Family history of heart disease in male family member before age 55 Father Lung cancer Other Family history of cardiovascular disease Hypertension Social History Social History Smoking packs per day: 1.25 Smoking cigarettes per day: 25.0 Years smoked: 25 Smoking pack-years: 31.25 Smoking status: Former smoker Tobacco type: cigarettes Smoking end date: 01/21/85 Alcohol intake: current Alcohol use details: Rarely Substance use: never Substance use type: does not use Do You Feel Safe in your Home?: Yes Lack of Transportation: No Lack of Food: Never True Current Housing: I Have Housing Concerned About Future Housing: No Difficulty Paying Gas/Electric Bills: No Difficulty Paying for Meds: No Currently Unemployed: No Education: Trade/Vocational Certificate Difficulty w/ Childcare or Family Care: No Living arrangements: with family Spiritual care concerns: No Exam Narrative: GENERAL APPEARANCE: WELL-DEVELOPED, WELL-NOURISHED SKIN: NORMAL COLOR HEAD: NORMOCEPHALIC, NONTRAUMATIC EYES: CLEAR CONJUNCTIVA ENT: OROPHARYNX NORMAL, EARS NORMAL, NOSE NORMAL NECK: SUPPLE, NONTENDER CHEST AND RESPIRATORY: AIRWAY PATENT, NO RESPIRATORY DISTRESS, NO ACCESSORY MUSCLE USE HEART: REGULAR RATE/RHYTHM ABDOMEN: SOFT, MILD TENDERNESS RIGHT LOWER QUADRANT, TESTICULAR EXAM SHOWED LARGE, FIRM, SEVERELY TENDER RIGHT TESTICLE VASCULAR: NORMAL PERIPHERAL PULSES, NORMAL CAPILLARY REFILL. MUSCULOSKELETAL: NORMAL RANGE OF MOTION, NONTENDER BACK NEUROLOGIC: ALERT AND ORIENTED ?3, CHIEF OF FIELD OPERATIONS IS NORMAL TESTED, NO GROSS MOTOR DEFICIT Course Consultations Consultation #1: DR. MCLAUGHLIN AWARE OF PATIENT ADMISSION TO OUR [facility] Date: 05/24/24 Vital Signs Vital signs: Vital Signs Temperature 36.7 C 05/24/24 17:55 Pulse Rate 118 H 05/24/24 17:55 Respiratory Rate 18 05/24/24 17:55 Blood Pressure 116/67 05/24/24 17:55 Pulse Oximetry 100 05/24/24 17:55 Oxygen Delivery Room Air 05/24/24 17:55 Temperature 36.7 C 05/24/24 17:55 Pulse Rate 98 05/24/24 19:24 Respiratory Rate 15 05/24/24 19:24 Blood Pressure 160/74 H 05/24/24 19:24 Pulse Oximetry 100 05/24/24 19:24 Oxygen Delivery Room Air 05/24/24 17:55 MDM - Abdominal Pain MDM Narrative Medical decision making narrative: PATIENT PRESENTS WITH LOWER ABDOMINAL PAIN AND RIGHT TESTICULAR PAIN PATIENT IS STATUS POST LOWER BACK SURGERY, NARCOTIC, CONSTIPATION. VITAL SIGNS ARE STABLE PHYSICAL EXAMINATION SHOWING SLIGHT RIGHT LOWER QUADRANT TENDERNESS, LARGE, FIRM, DIFFUSELY TENDER RIGHT TESTICLE DIFFERENTIAL DIAGNOSIS INCLUDE EPIDIDYMITIS, ORCHITIS, HYDROCELE, TUMOR, URINARY TRACT INFECTION, CONSTIPATION BLOOD WORKUP TODAY SHOWED WBC OF 25.0, CREATININE OF 1.8, BUN [address] ABDOMEN AND PELVIS POSITIVE FOR CONSTIPATION, BILATERAL INGUINAL HERNIA TESTICULAR ULTRASOUND POSITIVE FOR EPIDIDYMO-ORCHITIS PATIENT STARTED ON LEVAQUIN IV, ADMIT TO HOSPITALIST BECAUSE OF RECENT LOWER BACK SURGERY, DR. VILLEGAS WAS NOTIFIED ABOUT THE PATIENT ADMISSION. Differential Diagnosis Differential diagnosis: Likely other ( ABOVE) Medical Records Attestation: I reviewed the patient's medical records. Lab Data Attestation: I reviewed the patient's lab results. 05/24/24 19:16 05/24/24 19:16 Labs: Lab Results 05/24/24 05/24/24 Range/Units 19:16 19:22 WBC 25.0 H (4.5-10.0) K/mm3 RBC 4.15 L (4.6-6.20) M/mm3 Hgb 11.9 L (14.0-18.0) g/dL Hct 36.6 L (42.0-52.0) % MCV 88.2 (80-100) fl MCH 28.7 (26-34) pg MCHC 32.5 (32-36) g/dl RDW 12.6 (11.5-14.5) % Plt Count 261 (150-375) k/mm3 MPV 9.6 (7.4-10.4) fl Immature Gran % (Auto) Not Reportable Neut % (Auto) Not Reportable Lymph % (Auto) Not Reportable [place] % (Auto) Not Reportable Eos % (Auto) Not Reportable Baso % (Auto) Not Reportable Lymph # (Auto) Not Reportable [place] # (Auto) Not Reportable Eos # (Auto) Not Reportable Baso # (Auto) Not Reportable Abs Immat Gran (auto) Not Reportable Absolute Neuts (auto) Not Reportable Absolute Nucleated RBC Not Reportable Total Counted 100 Neutrophils % (Manual) 93 H (46-73) % Band Neutrophils % 2 (0-6) % Lymphocytes % (Manual) 3.0 L (18-44) % Monocytes % (Manual) 2 L (3-9) % Nucleated RBC % Not Reportable Abs Neuts (Manual) 23.75 H (1.3-6.7) K/mm3 Abs Lymphs (Manual) 0.75 L (1.1-4.5) K/mm3 Abs Monocytes (Manual) 0.50 (0.1-0.90) K/mm3 Platelet Estimate Adequate (Adequate) Schistocytes None seen Sodium 137 (137-145) mmol/L Potassium 4.3 (3.4-5.0) mmol/L Chloride 102 (98-107) mmol/L Carbon Dioxide 24 (22-30) mmol/L Anion Gap 11 (4-12) mmol/L BUN 27 H (9-20) mg/dL Creatinine 1.80 H (0.7-1.3) mg/dL Estim Creat Clear Calc 37 ml/min Estimated GFR 36 L (59 - ) Glucose 173 H (65-110) mg/dL Calcium 8.9 (8.4-10.2) mg/dL Total Bilirubin 0.9 (0.2-1.3) mg/dL AST 22 (17-59) U/L ALT 29 (6-50) U/L Alkaline Phosphatase 141 H (38-126) U/L Total Protein 7.0 (6.3-8.2) g/dL Albumin 3.7 (3.5-5.1) g/dL Lipase 115 (23-300) U/L Urine Color Yellow (Yellow) Urine Appearance Cloudy H (Clear) Urine pH 7.0 (5.0-9.0) Ur Specific [place] 1.023 (1.001-1.035) Urine Protein 1+ H (Negative) mg/dL Urine Glucose (UA) Negative (Negative) mg/dL Urine Ketones Trace H (Negative) mg/dL Ur Blood (Man) Negative (Negative) Urine Nitrate Positive H (Negative) Urine Bilirubin Negative (Negative) Urine Urobilinogen 0.2 (<2.0) mg/dL Leukocyte Esterase Rfl 2+ H (Negative) GLYNN/UL Urine RBC 0-2 (0-2) /hpf Urine WBC >100 H (0-3) /hpf Ur Squamous Epith Cells None seen (Few) /hpf Urine Bacteria 4+ H /hpf Urine Casts 3-5 Imaging Data Radiologist's impression: ITS Impressions Scrotum Ultrasound 05/24/24 20:45 IMPRESSION: Enlarged hyperemic right testicle suggestive of epididymoorchitis Bilateral septated hydroceles. Otherwise, normal testicular ultrasound. Abdomen/Pelvis CT 05/24/24 21:22 IMPRESSION: 1. No evidence of appendicitis, diverticulitis or intestinal obstruction 2. Slight enhancement of the renal pelvis and ureters wall which raises the possibility of infection. 3. Constipation. 4. Thickened wall of the urinary bladder. Evaluation for cystitis advised. Enlarged prostate. 5. Small cysts in the liver. Ultrasound evaluation advised. 6. Bilateral inguinal hernias with bilateral hydrocele. Critical Care Time Critical Care Time Critical Care Time: Yes Total Critical Care Time: 30 Discharge Plan Discharge Clinical Impression: Urinary tract infection, Acute epididymo-orchitis, Acute constipation, JACOBY (acute kidney injury) Patient Disposition: Still a Patient Condition: Stable Prescriptions: No Action fluticasone propion-salmeterol 250-50 mcg/dose blister with device 1 inh inhalation BID famotidine 40 mg tablet 40 mg PO DAILY azelastine 137 mcg (0.1 %) aerosol,spray 137 mcg intranasal Q12H Rx Instructions: administer into each nostril Trelegy Ellipta 200-62.5-25 mcg blister with device 1 inh inhalation DAILY cetirizine [Zyrtec] 10 mg Tablet 10 mg PO BID cyanocobalamin (vitamin B-12) 1,000 mcg/mL solution 1,000 mcg IM MONTHLY Qty: 10 0RF atorvastatin 40 mg tablet 40 mg PO DAILY Qty: 90 3RF folic acid 1 mg tablet 1 mg PO DAILY Qty: 90 2RF citalopram 20 mg tablet 20 mg PO QAM Qty: 90 2RF lisinopril 5 mg tablet 5 mg PO DAILY Qty: 90 2RF tamsulosin 0.4 mg capsule 0.4 mg PO DAILY Qty: 90 3RF glipizide 5 mg tablet extended release 24hr 5 mg PO DAILY Qty: 90 2RF Follow-up/Referrals: Demarcus Mancera DO [Primary Care Provider] -
[2024-05-24 19:21] LABS: Hematocrit 36.6 % (42.0-52.0); Hemoglobin 11.9 g/dL (14.0-18.0); Mean Corpuscular HGB Conc 32.5 g/dl (32-36); Mean Corpuscular Hemoglobin 28.7 pg (26-34); Mean Corpuscular Volume 88.2 fl (80-100); Mean Platelet Volume 9.6 fl (7.4-10.4); Platelet Count Result 261 k/mm3 (150-375); Red Blood Count 4.15 M/mm3 (4.6-6.20); Red Cell Distribution Width 12.6 % (11.5-14.5)
[2024-05-24 19:24] VITALS: BP 160/74; PULSE 98; RESP 15; O2SAT 100
[2024-05-24 19:47] LABS: Band Neutrophils Percent 2 % (0-6); Lymphocytes Absolute Manual 0.75 K/mm3 (1.1-4.5); Monocytes Percent Manual 2 % (3-9); Neutrophils Absolute Manual 23.75 K/mm3 (1.3-6.7); Neutrophils Percent Manual 93 % (46-73); Platelet Estimate Adequate (Adequate); Schistocytes None Seen; Total Cells Counted 100
[2024-05-24 19:49] LABS: Alanine Aminotransferase 29 U/L (6-50); Albumin Level 3.7 g/dL (3.5-5.1); Alkaline Phosphatase 141 U/L (38-126); Anion Gap 11 mmol/L (4-12); Aspartate Amino Transferase 22 U/L (17-59); Bilirubin,Total 0.9 mg/dL (0.2-1.3); Blood Urea Nitrogen 27 mg/dL (9-20); Calcium 8.9 mg/dL (8.4-10.2); Carbon Dioxide 24 mmol/L (22-30); Chloride 102 mmol/L (98-107); Estimated CRCL calculation 37 ml/min; Estimated Glomerular Filt Rate 36; Glucose 173 mg/dL (65-110); Potassium 4.3 mmol/L (3.4-5.0); Sodium 137 mmol/L (137-145)
[2024-05-24 19:59] LABS: Add Urine Microscopic? YES; Appearance Urine Cloudy (Clear); Bacteria Urine 4+ /hpf; Bilirubin Urine Negative (Negative); Blood Urine Negative (Negative); Color Urine Yellow (Yellow); Glucose Urine UA Negative (Negative); Ketones Urine Trace mg/dL (Negative); Leukocyte Esterase Ur 2+ LEU/UL (Negative); Nitrate Urine Positive (Negative); Protein Urine 1+ mg/dL (Negative); RBC Urine 0-2 /hpf (0-2); Specific Grav Ur 1.023 (1.001-1.035); Squamous Epithelial Cell Urine None Seen /hpf (Few); Urobilinogen Urine 0.2 mg/dL (<2.0); WBC Urine >100 /hpf (0-3)
[2024-05-24] MEDS: HYDROmorphone HCL INJ (*CRX) 1 MG/ML SYR 0.5 MG IV PUSH (20:01)
[2024-05-24] MEDS: ONDANSETRON INJ 4 MG/2 ML VIAL IV PUSH (20:02)
[2024-05-24 20:03] LABS: Lipase 115 U/L (23-300)
[2024-05-24] MEDS: SODIUM CHLORIDE 0.9% IV 1,000 ML 999 ML IV CONT (20:03)
[2024-05-24] MEDS: PIPERACILLN/TAZ 3.375GM/NS50ML 3.375 GM/50 ML BAG IVPB (21:05)
[2024-05-24] MEDS: FAMOTIDINE 20 MG/2 ML VIAL IV PUSH (21:27)
[2024-05-24] MEDS: levoFLOXacin 750 MG/D5W 150 ML 750 MG/150 ML BAG 100 MG IVPB (21:40)
[2024-05-25] VITALS (7 sets, daily range): BP systolic 121–142; BP diastolic 44–64; PULSE 86–96; RESP 16–18; TEMP 36.3–36.6; O2SAT 94–97; BMI 27.3
[2024-05-25] MEDS: HYDROmorphone HCL INJ (*CRX) 1 MG/ML SYR 0.5 MG IV PUSH ×2 (00:04→05:17)
--- NOTE | 2024-05-25 00:22 | PM.IMHP ---
H&P: HPI History of Present Illness Date/Time: 05/24/24 23:30 Chief Complaint: Abdominal and groin pain. Narrative: This is a pleasant 83-year-old male with hypertension, dyslipidemia, type 2 diabetes mellitus, benign prostatic hyperplasia, chronic kidney disease stage 3, and chronic obstructive pulmonary disease who presented to the emergency department via private vehicle for evaluation of abdominal and groin pain. The patient provides the following history. He had lumbar surgery about 4 weeks ago and has been quite constipated since that time despite taking stool softeners. Last night he developed pain in the lower abdomen which she initially thought was due to constipation however the pain became significant quite quickly and started to radiate down his groin and into the right testicle. The right testicle has become swollen and is extremely painful with minimal movement. He denies fever, chest pain, shortness of breath, diarrhea, dysuria, and hematuria. In the ED: He was afebrile on arrival with stable vital signs. Labs were significant for WBC count 25.0, hemoglobin 11.9, BUN 27, creatinine 1.80, glucose 173. Urinalysis was positive for 1+ protein, trace ketones, nitrates, 2+ leukocyte esterase, greater than 100 WBC per high-power field, and 4+ bacteria. Scrotal ultrasound shows findings suggestive of epididymo-orchitis. CT of the abdomen and pelvis showed findings of constipation and slight enhancement of the renal pelvis and ureters raising the possibility of infection. He was given a dose of Zosyn and levofloxacin and is being admitted in this setting for further treatment. Review of Systems Review of Systems: 12 systems were reviewed and are negative except for as per HPI. [facility] Past Medical History Medical History (Updated 05/25/24 @ 04:54 by Janell Carrillo PA-C) Anxiety Asthma Benign prostatic hyperplasia Chronic kidney disease, stage 3 Chronic obstructive pulmonary disease Depression Hyperlipidemia Hypertension Type 2 diabetes mellitus Surgical History Surgical History (Updated 05/25/24 @ 04:52 by Janell Carrillo PA-C) History of bilateral cataract extraction History of carpal tunnel release of both wrists History of lumbar surgery History of sinus surgery Family History Family History Mother Family history of heart disease in male family member before age 55 Father Lung cancer Other Family history of cardiovascular disease Hypertension Social History Social History (Updated 05/25/24 @ 04:52 by Janell Carrillo PA-C) Social History: Surrogate medical decision maker: Cailin Sierra, spouse. Code status: Full code. Smoking packs per day: 1.25 Smoking cigarettes per day: 25.0 Years smoked: 25 Smoking pack-years: 31.25 Smoking status: Former smoker Tobacco type: cigarettes Alcohol intake: current Alcohol use details: Rarely Substance use: never Substance use type: does not use Do You Feel Safe in your Home?: Yes Lack of Transportation: No Lack of Food: Never True Current Housing: I Have Housing Concerned About Future Housing: No Difficulty Paying Gas/Electric Bills: No Difficulty Paying for Meds: No Currently Unemployed: No Education: Trade/Vocational Certificate Difficulty w/ Childcare or Family Care: No Living arrangements: with family Spiritual care concerns: No Meds Home Medications and Allergies Home Medications Medication Instructions Recorded Confirmed Type cetirizine 10 mg tablet (Zyrtec) 10 mg PO BID 05/06/20 05/25/24 History azelastine 137 mcg (0.1 %) nasal 137 mcg intranasal Q12H 11/09/22 05/25/24 History spray famotidine 40 mg tablet 40 mg PO DAILY 11/09/22 05/25/24 History fluticasone fur. 200 mcg-umeclid 1 inh inhalation DAILY 11/09/22 05/25/24 History 62.5 mcg-vilant 25 mcg inhalat.powder (Trelegy Ellipta) cyanocobalamin (vitamin B-12) 1,000 mcg IM MONTHLY #10 mL 09/06/23 05/25/24 Rx 1,000 mcg/mL injection solution atorvastatin 40 mg tablet 40 mg PO DAILY #90 tabs 12/20/23 05/25/24 Rx folic acid 1 mg tablet 1 mg PO DAILY #90 tabs 01/29/24 05/25/24 Rx citalopram 20 mg tablet 20 mg PO QAM #90 tabs 02/19/24 05/25/24 Rx lisinopril 5 mg tablet 5 mg PO DAILY #90 tabs 03/12/24 05/25/24 Rx tamsulosin 0.4 mg capsule 0.4 mg PO DAILY #90 caps 04/11/24 05/25/24 Rx glipizide 5 mg tablet, extended 5 mg PO DAILY #90 tabs 04/15/24 05/25/24 Rx release 24 hr albuterol sulfate 90 mcg/actuation 2 puff inhalation Q6H PRN 05/25/24 05/25/24 History aerosol inhaler (Ventolin HFA) Shortness Of Breath Allergies Allergy/AdvReac Type Severity Reaction Status Date / Time codeine AdvReac Intermediate PALMS Verified 05/09/24 11:52 HANDS START PEELING Sulfa (Sulfonamide AdvReac Unknown I DON'T Verified 05/09/24 11:52 Antibiotics) REMEMBER IT HAS BEEN SO LONG AGO paroxetine [From Paxil] AdvReac Other Verified 05/09/24 11:52 Vital Signs Vital Signs - 24 hr 05/24/24 17:55 05/24/24 19:24 Temperature 98.0 F Pulse Rate 118 H 98 Respiratory Rate 18 15 Blood Pressure 116/67 160/74 H Pulse Oximetry 100 100 Oxygen Delivery Room Air Exam Narrative: General: Well-developed, nontoxic-appearing gentleman in moderate pain. Weight: 91.6 kg. BMI: 27.4. HEENT: PERRL, EOMI. Sclera anicteric. Tacky mucous membranes Neck: Supple. Respiratory: Lungs are clear to auscultation bilaterally. Cardiovascular: Regular rate and rhythm with S1-S2. Gastrointestinal: Abdomen is soft and nondistended with positive bowel sounds. He is somewhat tender to palpation the right lower quadrant. No guarding or rebound tenderness. Genitourinary: Right testicle was enlarged, firm, erythematous, and significantly tender to examination per ED physician. Skin: Warm and dry. No rash or lesions on limited exam. Normal capillary refill. Extremities: No cyanosis, clubbing, or edema. Radial and pedal pulses intact. Neurological: Alert. Cranial nerves 2-12 are grossly intact. No gross focal deficits to casual conversation. Psychiatric: Pleasant and cooperative with normal mood and affect. Judgment and insight intact. H&P: Results Labs Labs: Short CBC 05/24/24 Range/Units 19:16 WBC 25.0 H (4.5-10.0) K/mm3 Hgb 11.9 L (14.0-18.0) g/dL Hct 36.6 L (42.0-52.0) % Plt Count 261 (150-375) k/mm3 [facility] 05/24/24 19:16 Sodium 137 Potassium 4.3 Chloride 102 Carbon Dioxide 24 BUN 27 H Creatinine 1.80 H Glucose 173 H Calcium 8.9 Liver Function 05/24/24 Range/Units 19:16 Total Bilirubin 0.9 (0.2-1.3) mg/dL AST 22 (17-59) U/L ALT 29 (6-50) U/L Alkaline Phosphatase 141 H (38-126) U/L Albumin 3.7 (3.5-5.1) g/dL Urine 05/24/24 Range/Units 19:22 Urine Color Yellow (Yellow) Urine Appearance Cloudy H (Clear) Urine pH 7.0 (5.0-9.0) Ur Specific [place] 1.023 (1.001-1.035) Urine Protein 1+ H (Negative) mg/dL Urine Glucose (UA) Negative (Negative) mg/dL Imaging Scrotum Ultrasound 05/24/24 20:45 IMPRESSION: 1. Enlarged hyperemic right testicle suggestive of epididymoorchitis Bilateral septated hydroceles. Otherwise, normal testicular ultrasound. Abdomen/Pelvis CT 05/24/24 21:22 IMPRESSION: 1. No evidence of appendicitis, diverticulitis or intestinal obstruction 2. Slight enhancement of the renal pelvis and ureters wall which raises the possibility of infection. 3. Constipation. 4. Thickened wall of the urinary bladder. Evaluation for cystitis advised. Enlarged prostate. 5. Small cysts in the liver. Ultrasound evaluation advised. 6. Bilateral inguinal hernias with bilateral hydrocele. Assessment and Plan Assessment and plan (1) Epididymoorchitis: Code(s): N45.3 - Epididymo-orchitis Status: Acute (2) Urinary tract infection: Code(s): N39.0 - Urinary tract infection, site not specified Status: Acute (3) Constipation: Code(s): K59.00 - Constipation, unspecified Status: Acute (4) Benign prostatic hyperplasia: Code(s): N40.0 - Benign prostatic hyperplasia without lower urinary tract symptoms Status: Acute (5) Chronic kidney disease, stage 3: Code(s): N18.30 - Chronic kidney disease, stage 3 unspecified Status: Acute (6) Hypertension: Code(s): I10 - Essential (primary) hypertension Status: Acute (7) Type 2 diabetes mellitus: Code(s): E11.9 - Type 2 diabetes mellitus without complications Status: Acute Plan The patient presented to the emergency department for evaluation of right lower quadrant and right testicular pain as detailed in HPI. Labs, imaging, EKG, and all reports were personally reviewed. Imaging is consistent with acute epididymo-orchitis and he received a dose of levofloxacin and piperacillin/tazobactam in the emergency department. He has no prior history of multidrug resistant urinary tract infection and denies concerns for sexually transmitted infection thus will continue with levofloxacin. Urine culture is pending. There was no evidence of torsion or abscess on imaging however will consult Urology for recommendations. Start scheduled MiraLax for constipation. Creatinine looks a bit higher than what he typically runs and he will be hydrated overnight. Monitor I/O and bladder scan as needed. Blood pressures were reviewed and they are stable. Initiate sliding scale insulin, Accu-Cheks, and hypoglycemic protocol. His home medications will be reviewed and resumed as appropriate. Findings and treatment plan were discussed with the patient. Questions were solicited and answered to satisfaction. The patient's medical management will be taken over by the hospitalist team in a.m. Quality VTE Prophylaxis VTE prophylaxis: pharmacologic ordered The patient has been admitted under observation status. Hospitalist MIPS Advance Care Plan I have confirmed that the patient's Advanced Care Plan is present, code status is documented, or surrogate decision maker is listed in patient medical record.: Yes Medication Reconciliation I have utilized all available resources to obtain, update and review the patients current medications (includes all prescriptions, OTC, herbals, cannabis, and nutritional supplements).: Yes
[2024-05-25] MEDS: SODIUM CHLORIDE 0.9% IV 1,000 ML 125 ML IV CONT (00:44)
--- NOTE | 2024-05-25 01:08 | ADMGEN ---
This patient, Thom Sierra Jr., was admitted to Medical Room 349-01. Patient/family oriented to hospital policies and general routines including ID bracelet, bed and alarms, visiting hours, pain management, procedures, bathroom and other care routines, personal items, smoking policy, room service/diet, and visiting hours. Information on how to activate the Rapid Response Team has been discussed. Patient/Family are encouraged to report perceived risks to care and to ask questions if they do not understand what they are told or what they should do.
[2024-05-25] MEDS: ZOLPIDEM TARTRATE (*CRX) 5 MG TABLET PO (01:24)
[2024-05-25] MEDS: ACETAMINOPHEN 325 MG TABLET 650 MG PO (01:33)
[2024-05-25] MEDS: PIPERACILLIN/TAZ 2.25G/NS 50ML 2.25 GM/50 ML BAG IVPB ×4 (03:57→20:47)
[2024-05-25 05:59] LABS: Hematocrit 31.5 % (42.0-52.0); Hemoglobin 9.9 g/dL (14.0-18.0); Mean Corpuscular HGB Conc 31.4 g/dl (32-36); Mean Corpuscular Hemoglobin 28.6 pg (26-34); Mean Platelet Volume 9.9 fl (7.4-10.4); Platelet Count Result 208 k/mm3 (150-375); Red Blood Count 3.46 M/mm3 (4.6-6.20); Red Cell Distribution Width 12.9 % (11.5-14.5); White Blood Count 22.4 K/mm3 (4.5-10.0)
[2024-05-25 06:14] LABS: Anion Gap 7 mmol/L (4-12); Blood Urea Nitrogen 27 mg/dL (9-20); Calcium 7.9 mg/dL (8.4-10.2); Carbon Dioxide 25 mmol/L (22-30); Chloride 104 mmol/L (98-107); Estimated CRCL calculation 28 ml/min; Estimated Glomerular Filt Rate 30; Glucose 120 mg/dL (65-110); Potassium 4.1 mmol/L (3.4-5.0); Sodium 136 mmol/L (137-145)
[2024-05-25 06:17] LABS: Hemoglobin A1C 7.7 % (<5.7)
[2024-05-25] MEDS: FLUTICASONE/UMECLIDIN/VILANTER 200-62.5-25 MCG ELLIPTA 1 PUFF INHALATION (08:24)
[2024-05-25 08:47] LABS: Glucose Point of Care 119 mg/dl (65-105)
[2024-05-25] MEDS: oxyCODONE/ACETAMINOPHEN (*CRX) 5-325 MG TABLET 1 TABLET PO ×2 (09:58→18:35)
[2024-05-25] MEDS: polyethylene glycoL 3350 17 GM POWD.PACK PO (09:59)
[2024-05-25] MEDS: DOCUSATE SODIUM 100 MG CAPSULE PO ×2 (09:59→20:47)
[2024-05-25] MEDS: LORATADINE 10 MG TABLET PO (09:59)
[2024-05-25] MEDS: CITALOPRAM HYDROBROMIDE 20 MG TABLET PO (09:59)
[2024-05-25] MEDS: TAMSULOSIN HCL 0.4 MG CAPSULE PO (10:00)
[2024-05-25] MEDS: ATORVASTATIN 40 MG TABLET PO (10:00)
[2024-05-25] MEDS: FOLIC ACID 1 MG TABLET PO (10:00)
[2024-05-25] MEDS: glipiZIDE XL 5 MG TABCR PO (10:00)
[2024-05-25] MEDS: lisinopriL 5 MG TABLET PO (10:00)
[2024-05-25] MEDS: FAMOTIDINE 20 MG TABLET 40 MG PO (10:00)
[2024-05-25] MEDS: ENOXAPARIN 40 MG/0.4 ML SYRINGE SUB-Q (10:01)
--- NOTE | 2024-05-25 11:26 | P.CONUR_ITS ---
Assessment and Plan Assessment and plan (1) Epididymoorchitis: Code(s): N45.3 - Epididymo-orchitis Status: Acute Assessment and Plan: Typical presentation for acute right epididymal orchitis * Agree with levofloxacin pending cultures - tends to be a great antibiotic for epididymitis * Pain management ( usually with oral narcotics) and scrotal support the other corner stones of therapy * Anticipate discharge in 12:48 p.m. if he shows improvement with levofloxacin Urology Consult Note HPI Date Seen: 05/25/24 Requesting Physician: Sergo Clark MD Primary Care Provider: Demarcus Mancera DO Consult Narrative Narrative: Thom Sierra Jr. is a 83 year old male without prior significant urological history who has developed constipation and acute right hemiscrotal swelling, pain and tenderness. Exam CT and scrotal ultrasound showed findings consistent with acute right epididymal orchitis. Review of Systems Review of Systems: All systems reviewed & are unremarkable except as noted in HPI and below PMFSH Past Medical History Medical History (Updated 05/25/24 @ 04:54 by Janell Carrillo PA-C) Anxiety Asthma Benign prostatic hyperplasia Chronic kidney disease, stage 3 Chronic obstructive pulmonary disease Depression Hyperlipidemia Hypertension Type 2 diabetes mellitus Surgical History Surgical History (Updated 05/25/24 @ 04:52 by Janell Carrillo PA-C) History of bilateral cataract extraction History of carpal tunnel release of both wrists History of lumbar surgery History of sinus surgery Family History Family History Mother Family history of heart disease in male family member before age 55 Father Lung cancer Other Family history of cardiovascular disease Hypertension Social History Social History (Updated 05/25/24 @ 04:52 by Janell Carrillo PA-C) Social History: Surrogate medical decision maker: Cailin Sierra, spouse. Code status: Full code. Smoking packs per day: 1.25 Smoking cigarettes per day: 25.0 Years smoked: 25 Smoking pack-years: 31.25 Smoking status: Former smoker Tobacco type: cigarettes Alcohol intake: current Alcohol use details: Rarely Substance use: never Substance use type: does not use Do You Feel Safe in your Home?: Yes Lack of Transportation: No Lack of Food: Never True Current Housing: I Have Housing Concerned About Future Housing: No Difficulty Paying Gas/Electric Bills: No Difficulty Paying for Meds: No Currently Unemployed: No Education: Trade/Vocational Certificate Difficulty w/ Childcare or Family Care: No Living arrangements: with family Spiritual care concerns: No Meds Home Medications and Allergies Home Medications Medication Instructions Recorded Confirmed Type cetirizine 10 mg tablet (Zyrtec) 10 mg PO BID 05/06/20 05/25/24 History azelastine 137 mcg (0.1 %) nasal 137 mcg intranasal Q12H 11/09/22 05/25/24 History spray famotidine 40 mg tablet 40 mg PO DAILY 11/09/22 05/25/24 History fluticasone fur. 200 mcg-umeclid 1 inh inhalation DAILY 11/09/22 05/25/24 History 62.5 mcg-vilant 25 mcg inhalat.powder (Trelegy Ellipta) cyanocobalamin (vitamin B-12) 1,000 mcg IM MONTHLY #10 mL 09/06/23 05/25/24 Rx 1,000 mcg/mL injection solution atorvastatin 40 mg tablet 40 mg PO DAILY #90 tabs 12/20/23 05/25/24 Rx folic acid 1 mg tablet 1 mg PO DAILY #90 tabs 01/29/24 05/25/24 Rx citalopram 20 mg tablet 20 mg PO QAM #90 tabs 02/19/24 05/25/24 Rx lisinopril 5 mg tablet 5 mg PO DAILY #90 tabs 03/12/24 05/25/24 Rx tamsulosin 0.4 mg capsule 0.4 mg PO DAILY #90 caps 04/11/24 05/25/24 Rx glipizide 5 mg tablet, extended 5 mg PO DAILY #90 tabs 04/15/24 05/25/24 Rx release 24 hr albuterol sulfate 90 mcg/actuation 2 puff inhalation Q6H PRN 05/25/24 05/25/24 History aerosol inhaler (Ventolin HFA) Shortness Of Breath Allergies Allergy/AdvReac Type Severity Reaction Status Date / Time codeine AdvReac Intermediate PALMS Verified 05/09/24 11:52 HANDS START PEELING Sulfa (Sulfonamide AdvReac Unknown I DON'T Verified 05/09/24 11:52 Antibiotics) REMEMBER IT HAS BEEN SO LONG AGO paroxetine [From Paxil] AdvReac Other Verified 05/09/24 11:52 Vital Signs Vital Signs - 24 hr 05/24/24 17:55 05/24/24 19:24 05/25/24 01:53 Temperature 98.0 F 97.4 F L Pulse Rate 118 H 98 89 Respiratory Rate 18 15 18 Blood Pressure 116/67 160/74 H 131/44 L Pulse Oximetry 100 100 96 Oxygen Delivery Room Air 05/25/24 02:17 05/25/24 05:25 05/25/24 09:07 Temperature 97.8 F 97.3 F L Pulse Rate 89 86 88 Respiratory Rate 18 16 17 Blood Pressure 132/52 L 133/64 Pulse Oximetry 96 94 96 Oxygen Delivery Room Air Exam Const: General: no acute distress Resp: Effort & Inspection: normal respiratory effort GI: Inspection: non-distended GI Palp: No abdominal tenderness and No Guarding due to palpation present (GI) Auscultation: normal bowel sounds : Scrotum: edematous Testes: epididymal induration, epididymal tenderness and testicular tenderness Results Labs 05/25/24 05:42 05/25/24 05:42 Labs: Short CBC 05/24/24 05/25/24 Range/Units 19:16 05:42 WBC 25.0 H 22.4 H (4.5-10.0) K/mm3 Hgb 11.9 L 9.9 L (14.0-18.0) g/dL Hct 36.6 L 31.5 L (42.0-52.0) % Plt Count 261 208 (150-375) k/mm3 BMP 05/24/24 05/25/24 19:16 05:42 Sodium 137 136 L Potassium 4.3 4.1 Chloride 102 104 Carbon Dioxide 24 25 BUN 27 H 27 H Creatinine 1.80 H 2.10 H Glucose 173 H 120 H Calcium 8.9 7.9 L Liver Function 05/24/24 Range/Units 19:16 Total Bilirubin 0.9 (0.2-1.3) mg/dL AST 22 (17-59) U/L ALT 29 (6-50) U/L Alkaline Phosphatase 141 H (38-126) U/L Albumin 3.7 (3.5-5.1) g/dL Urine 05/24/24 Range/Units 19:22 Urine Color Yellow (Yellow) Urine Appearance Cloudy H (Clear) Urine pH 7.0 (5.0-9.0) Ur Specific [place] 1.023 (1.001-1.035) Urine Protein 1+ H (Negative) mg/dL Urine Glucose (UA) Negative (Negative) mg/dL
--- NOTE | 2024-05-25 12:22 | PC.NURSE ---
Patient sleeping when entering the room for pain assessment due to patient request for pain medication. Upon returning for morning medication administration patient finishing his breakfast. R testicle reddened, swollen, and painful. Education needs to be reinforced and patient does re-ask the same questions while I remained in the room.
[2024-05-25 12:27] LABS: Glucose Point of Care 171 mg/dl (65-105)
--- NOTE | 2024-05-25 12:37 | PM.IMPN ---
Progress Note: A&P Assessment and Plan (1) Epididymoorchitis: Code(s): N45.3 - Epididymo-orchitis Status: Acute Assessment and Plan: - US Scrotum: Findings suggestive of epididymo-orchitis. - Currently on Levaquin and Zosyn. - Urologist following. - No signs of abscess noted. - Continue current IV abx per Urologist. (2) Urinary tract infection: Code(s): N39.0 - Urinary tract infection, site not specified Status: Acute Assessment and Plan: - UA positive for UTI. - Covered by current abx. - Follow cultures. (3) Constipation: Code(s): K59.00 - Constipation, unspecified Status: Acute Assessment and Plan: - Laxatives and stool softeners ordered. - Monitor for results. (4) Benign prostatic hyperplasia: Code(s): N40.0 - Benign prostatic hyperplasia without lower urinary tract symptoms Status: Acute Assessment and Plan: - Continue Tamsulosin. (5) Chronic kidney disease, stage 3: Code(s): N18.30 - Chronic kidney disease, stage 3 unspecified Status: Acute Assessment and Plan: - Unclear recent baseline. - Possibly affected by infection. - Cr slightly trended up from yesterday. - IVF ordered. - Monitor renal function closely. - Avoid nephrotoxins. (6) Hypertension: Code(s): I10 - Essential (primary) hypertension Status: Acute Assessment and Plan: - BP well controlled. - Continue Lisinopril. (7) Type 2 diabetes mellitus: Code(s): E11.9 - Type 2 diabetes mellitus without complications Status: Acute Assessment and Plan: - Glipizide resumed. - Diabetic diet. - Monitor BG levels AC & HS. - Adjust meds as needed for optimal control. (8) Chronic obstructive pulmonary disease: Code(s): J44.9 - Chronic obstructive pulmonary disease, unspecified Status: Acute Assessment and Plan: - Appears stable. - Bronchodilators PRN. (9) Esophageal reflux disease: Code(s): K21.9 - Gastro-esophageal reflux disease without esophagitis Status: Acute Assessment and Plan: - Famotidine resumed. (10) Hyperlipidemia: Code(s): E78.5 - Hyperlipidemia, unspecified Status: Acute Assessment and Plan: - Continue statin. Time Spent With Patient Time with patient: 25 - 35 minutes Subjective Date/time seen: 05/25/24 12:37 Patient states he feels better but still has some right-sided pelvic pain. States took some laxatives but still haven't had a BM. Interval history: Patient presented to the ER with reports of lower abdominal pain that radiated to his right-groin and testicle area. He had a scrotal ultrasound done that showed findings suggestive of epididymo-orchitis. CT of the abdomen and pelvis showed findings of constipation and slight enhancement of the renal pelvis and ureters raising the possibility of infection. Review of Systems Review of Systems: All systems reviewed & are unremarkable except as noted in HPI and below Exam Narrative: General: Well-developed, nontoxic-appearing gentleman, no acute distress. Weight: 91.6 kg. BMI: 27.4. HEENT: PERRL, EOMI. Sclera anicteric. Moist mucous membranes. Neck: Supple. Respiratory: Lungs are clear to auscultation bilaterally. Cardiovascular: Regular rate and rhythm with S1-S2. Gastrointestinal: Abdomen is soft and nondistended with positive bowel sounds. He is somewhat tender to palpation the right lower quadrant. No guarding or rebound tenderness. Genitourinary: Right testicle mod enlarged, firm, erythematous, and significantly tender to palpation per patient. Skin: Warm and dry. No rash or lesions on limited exam. Normal capillary refill. Extremities: No cyanosis, clubbing, or edema. Radial and pedal pulses intact. Neurological: Alert. Cranial nerves II-XII are grossly intact. No gross focal deficits. Psychiatric: Pleasant and cooperative with normal mood and affect. Judgment and insight intact. Objective Data Vital Signs Vital Signs: Vital Signs - 24 hr 05/24/24 17:55 05/24/24 19:24 05/25/24 01:53 Temperature 98.0 F 97.4 F L Pulse Rate 118 H 98 89 Respiratory Rate 18 15 18 Blood Pressure 116/67 160/74 H 131/44 L Pulse Oximetry 100 100 96 Oxygen Delivery Room Air 05/25/24 02:17 05/25/24 05:25 05/25/24 09:07 Temperature 97.8 F 97.3 F L Pulse Rate 89 86 88 Respiratory Rate 18 16 17 Blood Pressure 132/52 L 133/64 Pulse Oximetry 96 94 96 Oxygen Delivery Room Air Intake/Output Intake/Output: Intake & Output 05/22/24 05/23/24 05/24/24 05/25/24 23:59 23:59 23:59 23:59 Intake Total 1200 460 Balance 1200 460 Meds/Results Medications: Active Medications Generic Name Dose Route Start Last Admin Trade Name Freq PRN Reason Stop Dose Admin Acetaminophen 650 mg 05/24/24 22:41 05/25/24 01:33 Acetaminophen 325 Mg Tablet PO 650 mg Q4H PRN Administration Mild Pain (1-3) or Fever Albuterol 2 puff 05/25/24 05:02 Albuterol Sulfate (*Sp) Aerosol 1 Puff INHALATION Q6H PRN Shortness Of Breath Atorvastatin Calcium 40 mg 05/25/24 09:00 05/25/24 10:00 Atorvastatin 40 Mg Tablet PO 40 mg DAILY PRAVIN Administration Azelastine HCl 1 spray 05/25/24 09:00 05/25/24 10:01 Azelastine Hcl Nasal 0.1% 137 Mcg/Spr 30 Ml Btl NASAL Not Given Q12HR PRAVIN Bisacodyl 10 mg 05/25/24 09:00 05/25/24 10:01 Bisacodyl 10 Mg Suppository RECTAL Not Given BID PRAVIN Bisacodyl 5 mg 05/25/24 12:37 Bisacodyl 5 Mg Tablet Ec PO 05/25/24 12:38 ONCE ONE Citalopram Hydrobromide 20 mg 05/25/24 09:00 05/25/24 09:59 Citalopram Hydrobromide 20 Mg Tablet PO 20 mg QAM PRAVIN Administration Dextrose 12.5 gm 05/25/24 05:01 Dextrose 50% 25 Gm/50 Ml Syringe IV PUSH PRN PRN Hypoglycemia Protocol Docusate Sodium 100 mg 05/25/24 09:00 05/25/24 09:59 Docusate Sodium 100 Mg Capsule PO 100 mg Q12HR PR[facility]IN Administration Enoxaparin Sodium 40 mg 05/25/24 09:00 05/25/24 10:01 Enoxaparin 40 Mg/0.4 Ml Syringe SUB-Q 40 mg DAILY PRAVIN Administration Famotidine 40 mg 05/25/24 09:00 05/25/24 10:00 Famotidine 20 Mg Tablet PO 40 mg DAILY PRAVIN Administration Fluticasone/Umeclidinium/Vilanterol 1 puff 05/25/24 08:00 05/25/24 08:24 Fluticasone/Umeclidin/Vilanter 200-62.5-25 Mcg Ellipta INHALATION 1 puff DAILYRT PRAVIN Administration Folic Acid 1 mg 05/25/24 09:00 05/25/24 10:00 Folic Acid 1 Mg Tablet PO 1 mg DAILY PRAVIN Administration Glipizide 5 mg 05/25/24 09:00 05/25/24 10:00 Glipizide Xl 5 Mg Tabcr PO 5 mg DAILY PRAVIN Administration Glucagon 1 mg 05/25/24 05:01 Glucagon For Inj 1 Mg Vial IM PRN PRN Hypoglycemia Protocol Glucose 15 gm 05/25/24 05:01 Glucose Oral Gel 15 Gm Of Glucse In 37.5 Gm Tube PO PRN PRN Hypoglycemia Protocol Hydromorphone HCl 0.5 mg 05/24/24 23:38 05/25/24 05:17 Hydromorphone Hcl Inj (*Crx) 1 Mg/Ml Syr IV PUSH 0.5 mg Q3H PRN Administration Pain Rated 7-10 Piperacillin Sod/Tazobactam Sod 2.25 gm in 50 mls @ 100 mls/hr 05/25/24 03:00 05/25/24 10:31 Zosyn 2.25 Gm/Ns 50 Ml IVPB Infused Q6H [facility] Infusion Levofloxacin/Dextrose 750 mg in 150 mls @ 100 mls/hr 05/26/24 22:00 Levaquin 750 Mg/D5w 150 Ml IVPB Q48H [facility] Dextrose 1,000 mls @ 100 mls/hr 05/25/24 05:01 Dextrose 5% 1,000 Ml IVPB PRN PRN Hypoglycemia Protocol Sodium Chloride 1,000 mls @ 999 mls/hr 05/25/24 12:36 Normal Saline Iv IV CONT 05/25/24 13:36 .Q1H1M ONE Insulin Aspart 3 - 6 units 05/25/24 08:00 05/25/24 08:56 Insulin Aspart (*Bkc) 100 Units/Ml SUB-Q Not Given TIDWM [facility] Protocol Insulin Aspart 1 - 3 units 05/25/24 21:00 Insulin Aspart (*Bkc) 100 Units/Ml SUB-Q HS [facility] Protocol Lisinopril 5 mg 05/25/24 09:00 05/25/24 10:00 Lisinopril 5 Mg Tablet PO 5 mg DAILY PRAVIN Administration Loratadine 10 mg 05/25/24 09:00 05/25/24 09:59 Loratadine 10 Mg Tablet PO 10 mg QAM PRAVIN Administration Oxycodone/Acetaminophen 1 tablet 05/25/24 05:03 05/25/24 09:58 Oxycodone/Acetaminophen (*Crx) 5-325 Mg Tablet PO 1 tablet Q4H PRN Administration Pain Rated 4-6 Polyethylene Glycol 17 gm 05/25/24 09:00 05/25/24 09:59 Polyethylene Glycol 3350 17 Gm Powd.Pack PO 17 gm QAM PRAVIN Administration Tamsulosin HCl 0.4 mg 05/25/24 09:00 05/25/24 10:00 Tamsulosin Hcl 0.4 Mg Capsule PO 0.4 mg DAILY PRAVIN Administration Zolpidem Tartrate 5 mg 05/24/24 22:48 05/25/24 01:24 Zolpidem Tartrate (*Crx) 5 Mg Tablet PO 5 mg HS PRN Administration Insomnia Radiology Results: ITS Impressions Scrotum Ultrasound 05/24/24 20:45 IMPRESSION: Enlarged hyperemic right testicle suggestive of epididymoorchitis Bilateral septated hydroceles. Otherwise, normal testicular ultrasound. Abdomen/Pelvis CT 05/24/24 21:22 IMPRESSION: 1. No evidence of appendicitis, diverticulitis or intestinal obstruction 2. Slight enhancement of the renal pelvis and ureters wall which raises the possibility of infection. 3. Constipation. 4. Thickened wall of the urinary bladder. Evaluation for cystitis advised. Enlarged prostate. 5. Small cysts in the liver. Ultrasound evaluation advised. 6. Bilateral inguinal hernias with bilateral hydrocele. Labs Labs: Laboratory Results - last 24 hr 05/24/24 05/24/24 05/25/24 19:16 19:22 05:42 WBC 25.0 H 22.4 H RBC 4.15 L 3.46 L Hgb 11.9 L 9.9 L Hct 36.6 L 31.5 L MCV 88.2 91.0 MCH 28.7 28.6 MCHC 32.5 31.4 L RDW 12.6 12.9 Plt Count 261 208 MPV 9.6 9.9 Immature Gran % (Auto) Not Reportable Neut % (Auto) Not Reportable Lymph % (Auto) Not Reportable [place] % (Auto) Not Reportable Eos % (Auto) Not Reportable Baso % (Auto) Not Reportable Lymph # (Auto) Not Reportable [place] # (Auto) Not Reportable Eos # (Auto) Not Reportable Baso # (Auto) Not Reportable Abs Immat Gran (auto) Not Reportable Absolute Neuts (auto) Not Reportable Absolute Nucleated RBC Not Reportable Total Counted 100 Neutrophils % (Manual) 93 H Band Neutrophils % 2 Lymphocytes % (Manual) 3.0 L Monocytes % (Manual) 2 L Nucleated RBC % Not Reportable Abs Neuts (Manual) 23.75 H Abs Lymphs (Manual) 0.75 L Abs Monocytes (Manual) 0.50 Platelet Estimate Adequate Schistocytes None seen Sodium 137 136 L Potassium 4.3 4.1 Chloride 102 104 Carbon Dioxide 24 25 Anion Gap 11 7 BUN 27 H 27 H Creatinine 1.80 H 2.10 H Estim Creat Clear Calc 37 28 Estimated GFR 36 L 30 L Glucose 173 H 120 H POC Capillary Glucose Hemoglobin A1c 7.7 H Calcium 8.9 7.9 L Magnesium 2.0 Total Bilirubin 0.9 AST 22 ALT 29 Alkaline Phosphatase 141 H Total Protein 7.0 Albumin 3.7 Lipase 115 Urine Color Yellow Urine Appearance Cloudy H Urine pH 7.0 Ur Specific [place]mann 1.023 Urine Protein 1+ H Urine Glucose (UA) Negative Urine Ketones Trace H Ur Blood (Man) Negative Urine Nitrate Positive H Urine Bilirubin Negative Urine Urobilinogen 0.2 Leukocyte Esterase Rfl 2+ H Urine RBC 0-2 Urine WBC >100 H Ur Squamous Epith Cells None seen Urine Bacteria 4+ H Urine Casts 3-5 05/25/24 05/25/24 08:45 12:16 WBC RBC Hgb Hct MCV MCH MCHC RDW Plt Count MPV Immature Gran % (Auto) Neut % (Auto) Lymph % (Auto) [place] % (Auto) Eos % (Auto) Baso % (Auto) Lymph # (Auto) [place] # (Auto) Eos # (Auto) Baso # (Auto) Abs Immat Gran (auto) Absolute Neuts (auto) Absolute Nucleated RBC Total Counted Neutrophils % (Manual) Band Neutrophils % Lymphocytes % (Manual) Monocytes % (Manual) Nucleated RBC % Abs Neuts (Manual) Abs Lymphs (Manual) Abs Monocytes (Manual) Platelet Estimate Schistocytes Sodium Potassium Chloride Carbon Dioxide Anion Gap BUN Creatinine Estim Creat Clear Calc Estimated GFR Glucose POC Capillary Glucose 119 H 171 H Hemoglobin A1c Calcium Magnesium Total Bilirubin AST ALT Alkaline Phosphatase Total Protein Albumin Lipase Urine Color Urine Appearance Urine pH Ur Specific [place]mann Urine Protein Urine Glucose (UA) Urine Ketones Ur Blood (Man) Urine Nitrate Urine Bilirubin Urine Urobilinogen Leukocyte Esterase Rfl Urine RBC Urine WBC Ur Squamous Epith Cells Urine Bacteria Urine Casts Quality VTE Prophylaxis VTE prophylaxis: pharmacologic ordered Hospitalist MIPS Advance Care Plan I have confirmed that the patient's Advanced Care Plan is present, code status is documented, or surrogate decision maker is listed in patient medical record.: Yes Medication Reconciliation I have utilized all available resources to obtain, update and review the patients current medications (includes all prescriptions, OTC, herbals, cannabis, and nutritional supplements).: Yes
[2024-05-25] MEDS: SODIUM CHLORIDE 0.9% IV 1,000 ML 999 ML IV CONT (12:54)
--- NOTE | 2024-05-25 13:14 | PC.NURSE ---
Spoke with Angie on the phone and address her concerns and answered questions. She state she and her mom will be up to see the patient about 1500.
[2024-05-25 17:43] LABS: Glucose Point of Care 146 mg/dl (65-105)
--- NOTE | 2024-05-26 01:55 | PC.NURSE ---
Daylight Savings Time For Daylight Savings Time Ending in the Fall - Clocks are moved back. For Daylight Savings Time Beginning in the Spring - Clocks are moved ahead. For [facility], the time of change occurs at 0200 hrs. Time is taken from the kitchen food server. This entry on the patient's chart recognizes the change in time reflected during documentation. Example: 2 entries for vital signs may be charted for 0200 hrs.
[2024-05-26] MEDS: PIPERACILLIN/TAZ 2.25G/NS 50ML 2.25 GM/50 ML BAG IVPB ×4 (03:41→20:40)
[2024-05-26] MEDS: HYDROmorphone HCL INJ (*CRX) 1 MG/ML SYR 0.5 MG IV PUSH (04:15)
[2024-05-26 05:59] LABS: Glucose Point of Care 141 mg/dl (65-105)
[2024-05-26 06:00] VITALS: BP 128/57; PULSE 95; RESP 16; TEMP 36.4; O2SAT 93
--- NOTE | 2024-05-26 08:37 | WPDUROPN2 ---
Progress Note: A&P Assessment and Plan (1) Epididymoorchitis: Code(s): N45.3 - Epididymo-orchitis Status: Acute Assessment and Plan: Patient wants to stay another day d/t considerable ongoing right testicular pain -> reasonable decision. Continue Levofloxacin IV Subjective Subjective Date/Time Seen: 05/26/24 08:37 Interval history: Persistent right scrotal/inguinal pain Review of Systems Review of Systems: All systems reviewed & are unremarkable except as noted in HPI and below Exam Narrative: General: Well-developed, nontoxic-appearing gentleman, no acute distress. Weight: 91.6 kg. BMI: 27.4. HEENT: PERRL, EOMI. Sclera anicteric. Moist mucous membranes. Neck: Supple. Respiratory: Lungs are clear to auscultation bilaterally. Cardiovascular: Regular rate and rhythm with S1-S2. Gastrointestinal: Abdomen is soft and nondistended with positive bowel sounds. He is somewhat tender to palpation the right lower quadrant. No guarding or rebound tenderness. Genitourinary: Right testicle mod enlarged, firm, erythematous, and significantly tender to palpation per patient. Skin: Warm and dry. No rash or lesions on limited exam. Normal capillary refill. Extremities: No cyanosis, clubbing, or edema. Radial and pedal pulses intact. Neurological: Alert. Cranial nerves II-XII are grossly intact. No gross focal deficits. Psychiatric: Pleasant and cooperative with normal mood and affect. Judgment and insight intact. Objective Data Vital Signs Vital Signs: Vital Signs - 24 hr 05/25/24 14:47 05/25/24 16:51 05/25/24 22:18 Temperature 97.7 F 97.7 F 97.8 F Pulse Rate 89 86 96 Respiratory Rate 18 17 18 Blood Pressure 121/57 L 129/56 L 142/56 H Pulse Oximetry 97 97 96 05/26/24 06:00 Temperature 97.6 F Pulse Rate 95 Respiratory Rate 16 Blood Pressure 128/57 L Pulse Oximetry 93 Intake/Output Intake/Output: Intake & Output 05/23/24 05/24/24 05/25/24 05/26/24 23:59 23:59 23:59 22:59 Intake Total 1200 0 550 Balance 1200 0 550 Meds/Results Medications: Active Medications Generic Name Dose Route Start Last Admin Trade Name Freq PRN Reason Stop Dose Admin Acetaminophen 650 mg 05/24/24 22:41 05/25/24 01:33 Acetaminophen 325 Mg Tablet PO 650 mg Q4H PRN Administration Mild Pain (1-3) or Fever Albuterol 2 puff 05/25/24 05:02 Albuterol Sulfate (*Sp) Aerosol 1 Puff INHALATION Q6H PRN Shortness Of Breath Atorvastatin Calcium 40 mg 05/25/24 09:00 05/25/24 10:00 Atorvastatin 40 Mg Tablet PO 40 mg DAILY PRAVIN Administration Azelastine HCl 1 spray 05/25/24 09:00 05/25/24 20:48 Azelastine Hcl Nasal 0.1% 137 Mcg/Spr 30 Ml Btl NASAL Not Given Q12HR PRAVIN Bisacodyl 10 mg 05/25/24 09:00 05/25/24 17:42 Bisacodyl 10 Mg Suppository RECTAL Not Given BID PRAVIN Bisacodyl 5 mg 05/25/24 12:52 Bisacodyl 5 Mg Tablet Ec PO BID PRN Constipation Citalopram Hydrobromide 20 mg 05/25/24 09:00 05/25/24 09:59 Citalopram Hydrobromide 20 Mg Tablet PO 20 mg QAM PRAVIN Administration Dextrose 12.5 gm 05/25/24 05:01 Dextrose 50% 25 Gm/50 Ml Syringe IV PUSH PRN PRN Hypoglycemia Protocol Docusate Sodium 100 mg 05/25/24 09:00 05/25/24 20:47 Docusate Sodium 100 Mg Capsule PO 100 mg Q12HR PRAVIN Administration Enoxaparin Sodium 40 mg 05/25/24 09:00 05/25/24 10:01 Enoxaparin 40 Mg/0.4 Ml Syringe SUB-Q 40 mg DAILY PRAVIN Administration Famotidine 40 mg 05/25/24 09:00 05/25/24 10:00 Famotidine 20 Mg Tablet PO 40 mg DAILY PRAVIN Administration Fluticasone/Umeclidinium/Vilanterol 1 puff 05/25/24 08:00 05/25/24 08:24 Fluticasone/Umeclidin/Vilanter 200-62.5-25 Mcg Ellipta INHALATION 1 puff DAILYRT PRAVIN Administration Folic Acid 1 mg 05/25/24 09:00 05/25/24 10:00 Folic Acid 1 Mg Tablet PO 1 mg DAILY PRAVIN Administration Glipizide 5 mg 05/25/24 09:00 05/25/24 10:00 Glipizide Xl 5 Mg Tabcr PO 5 mg DAILY PR[facility]IN Administration Glucagon 1 mg 05/25/24 05:01 Glucagon For Inj 1 Mg Vial IM PRN PRN Hypoglycemia Protocol Glucose 15 gm 05/25/24 05:01 Glucose Oral Gel 15 Gm Of Glucse In 37.5 Gm Tube PO PRN PRN Hypoglycemia Protocol Hydromorphone HCl 0.5 mg 05/24/24 23:38 05/26/24 04:15 Hydromorphone Hcl Inj (*Crx) 1 Mg/Ml Syr IV PUSH 0.5 mg Q3H PRN Administration Pain Rated 7-10 Piperacillin Sod/Tazobactam Sod 2.25 gm in 50 mls @ 100 mls/hr 05/25/24 03:00 05/26/24 04:11 Zosyn 2.25 Gm/Ns 50 Ml IVPB Infused Q6H [facility] Infusion Levofloxacin/Dextrose 750 mg in 150 mls @ 100 mls/hr 05/26/24 22:00 Levaquin 750 Mg/D5w 150 Ml IVPB Q48H [facility] Dextrose 1,000 mls @ 100 mls/hr 05/25/24 05:01 Dextrose 5% 1,000 Ml IVPB PRN PRN Hypoglycemia Protocol Insulin Aspart 3 - 6 units 05/25/24 08:00 05/25/24 17:42 Insulin Aspart (*Bkc) 100 Units/Ml SUB-Q Not Given TIDWM [facility] Protocol Insulin Aspart 1 - 3 units 05/25/24 21:00 05/25/24 22:13 Insulin Aspart (*Bkc) 100 Units/Ml SUB-Q Not Given HS [facility] Protocol Lisinopril 5 mg 05/25/24 09:00 05/25/24 10:00 Lisinopril 5 Mg Tablet PO 5 mg DAILY PRAVIN Administration Loratadine 10 mg 05/25/24 09:00 05/25/24 09:59 Loratadine 10 Mg Tablet PO 10 mg QAM PRAVIN Administration Oxycodone/Acetaminophen 1 tablet 05/25/24 05:03 05/25/24 18:35 Oxycodone/Acetaminophen (*Crx) 5-325 Mg Tablet PO 1 tablet Q4H PRN Administration Pain Rated 4-6 Polyethylene Glycol 17 gm 05/25/24 09:00 05/25/24 09:59 Polyethylene Glycol 3350 17 Gm Powd.Pack PO 17 gm QAM PRAVIN Administration Tamsulosin HCl 0.4 mg 05/25/24 09:00 05/25/24 10:00 Tamsulosin Hcl 0.4 Mg Capsule PO 0.4 mg DAILY PR[facility]IN Administration Zolpidem Tartrate 5 mg 05/24/24 22:48 05/25/24 01:24 Zolpidem Tartrate (*Crx) 5 Mg Tablet PO 5 mg HS PRN Administration Insomnia Radiology Results: ITS Impressions Scrotum Ultrasound 05/24/24 20:45 IMPRESSION: Enlarged hyperemic right testicle suggestive of epididymoorchitis Bilateral septated hydroceles. Otherwise, normal testicular ultrasound. Abdomen/Pelvis CT 05/24/24 21:22 IMPRESSION: 1. No evidence of appendicitis, diverticulitis or intestinal obstruction 2. Slight enhancement of the renal pelvis and ureters wall which raises the possibility of infection. 3. Constipation. 4. Thickened wall of the urinary bladder. Evaluation for cystitis advised. Enlarged prostate. 5. Small cysts in the liver. Ultrasound evaluation advised. 6. Bilateral inguinal hernias with bilateral hydrocele. Labs Labs: Laboratory Results - last 24 hr 05/25/24 05/25/24 05/25/24 12:16 17:41 20:46 POC Capillary Glucose 171 H 146 H 141 H
[2024-05-26 09:05] LABS: Glucose Point of Care 118 mg/dl (65-105)
[2024-05-26] MEDS: FLUTICASONE/UMECLIDIN/VILANTER 200-62.5-25 MCG ELLIPTA 1 PUFF INHALATION (09:10)
[2024-05-26] MEDS: polyethylene glycoL 3350 17 GM POWD.PACK PO (09:34)
[2024-05-26] MEDS: DOCUSATE SODIUM 100 MG CAPSULE PO (09:35)
[2024-05-26] MEDS: LORATADINE 10 MG TABLET PO (09:35)
[2024-05-26] MEDS: TAMSULOSIN HCL 0.4 MG CAPSULE PO (09:35)
[2024-05-26] MEDS: FAMOTIDINE 20 MG TABLET 40 MG PO (09:35)
[2024-05-26] MEDS: glipiZIDE XL 5 MG TABCR PO (09:35)
[2024-05-26] MEDS: ATORVASTATIN 40 MG TABLET PO (09:35)
[2024-05-26] MEDS: lisinopriL 5 MG TABLET PO (09:35)
[2024-05-26] MEDS: CITALOPRAM HYDROBROMIDE 20 MG TABLET PO (09:35)
[2024-05-26] MEDS: FOLIC ACID 1 MG TABLET PO (09:35)
[2024-05-26] MEDS: AZELASTINE HCL NASAL 0.1% 137 MCG/SPR 30 ML BTL 1 SPRAY NASAL ×2 (09:36→20:40)
[2024-05-26] MEDS: oxyCODONE/ACETAMINOPHEN (*CRX) 5-325 MG TABLET 1 TABLET PO ×3 (09:45→20:42)
[2024-05-26 09:55] LABS: Basophils Absolute Auto 0.1 K/mm3 (0.0-0.1); Basophils Percent Auto 0.4 % (0.2-1.2); Eosinophils Absolute Auto 0.5 K/mm3 (0-0.3); Eosinophils Percent Auto 3.1 % (0-4.4); Hematocrit 32.2 % (42.0-52.0); Immature Granulocyte Absolute 0.12 K/mm3 (0.00-0.031); Immature Granulocyte Percent A 0.8 % (0-0.5); Lymphocytes Absolute Auto 0.99 K/mm3 (0.9-3.2); Lymphocytes Percent Auto 6.2 % (18.3-44.2); Mean Corpuscular HGB Conc 31.1 g/dl (32-36); Mean Corpuscular Hemoglobin 28.1 pg (26-34); Mean Corpuscular Volume 90.4 fl (80-100); Mean Platelet Volume 9.8 fl (7.4-10.4); Monocytes Absolute Auto 0.9 K/mm3 (0.1-0.6); Monocytes Percent Auto 5.6 % (2.6-8.5); Neutrophils Absolute Auto 13.4 K/mm3 (1.3-6.7); Neutrophils Percent Auto 83.9 % (45.5-73.1); Platelet Count Result 216 k/mm3 (150-375); Red Blood Count 3.56 M/mm3 (4.6-6.20)
[2024-05-26 12:19] LABS: Glucose Point of Care 166 mg/dl (65-105)
[2024-05-26 15:17] VITALS: BP 137/64; PULSE 80; RESP 16; TEMP 36.3; O2SAT 97
--- NOTE | 2024-05-26 16:11 | PM.IMPN ---
Progress Note: A&P Assessment and Plan (1) Epididymoorchitis: Code(s): N45.3 - Epididymo-orchitis Status: Acute Assessment and Plan: - US Scrotum: Findings suggestive of epididymo-orchitis. - Currently on Levaquin and Zosyn. - Urologist following. - No signs of abscess noted. - WBC's trending down and no fevers noted. - Continue current IV abx per Urologist. (2) Urinary tract infection: Code(s): N39.0 - Urinary tract infection, site not specified Status: Acute Assessment and Plan: - UA positive for UTI. - Urine culture +ve for Klebs. Pneumoniae. - Blood cultures NGTD. - Covered by current abx. - Continue to follow cultures. (3) Constipation: Code(s): K59.00 - Constipation, unspecified Status: Acute Assessment and Plan: - Reports BM this AM. - Continue Laxatives and stool softeners. - Continue to monitor for results. (4) Benign prostatic hyperplasia: Code(s): N40.0 - Benign prostatic hyperplasia without lower urinary tract symptoms Status: Acute Assessment and Plan: - Continue Tamsulosin. (5) Chronic kidney disease, stage 3: Code(s): N18.30 - Chronic kidney disease, stage 3 unspecified Status: Acute Assessment and Plan: - Unclear recent baseline. - Possibly affected by infection. - Cr slightly trended up from yesterday. - IVF ordered. - Monitor renal function closely. - Avoid nephrotoxins. (6) Hypertension: Code(s): I10 - Essential (primary) hypertension Status: Acute Assessment and Plan: - BP well controlled. - Continue Lisinopril. (7) Type 2 diabetes mellitus: Code(s): E11.9 - Type 2 diabetes mellitus without complications Status: Acute Assessment and Plan: - Glipizide resumed. - Diabetic diet. - Monitor BG levels AC & HS. - Adjust meds as needed for optimal control. (8) Chronic obstructive pulmonary disease: Code(s): J44.9 - Chronic obstructive pulmonary disease, unspecified Status: Acute Assessment and Plan: - Appears stable. - Bronchodilators PRN. (9) Esophageal reflux disease: Code(s): K21.9 - Gastro-esophageal reflux disease without esophagitis Status: Acute Assessment and Plan: - Famotidine resumed. (10) Hyperlipidemia: Code(s): E78.5 - Hyperlipidemia, unspecified Status: Acute Assessment and Plan: - Continue statin. Time Spent With Patient Time with patient: 25 - 35 minutes Subjective Date/time seen: 05/26/24 15:11 Patient states he has severe pain to his right-testicular region and only gets up to use the bathroom. States he stays still bedside to relieve the pain. Interval history: Patient presented to the ER with severe pain to his right lower abdomen and right scrotum. US scrotum suggestive of Enlarged hyperemic right testicle suggestive of epididymoorchitis Bilateral septated hydroceles. Patient is being treated with IV abx and pain meds for comfort, with the urologist following and assisting with stabilizing patient. Review of Systems Review of Systems: 12 systems were reviewed and are negative except for as per HPI. All systems reviewed & are unremarkable except as noted in HPI and below Exam Narrative: General: Well-developed, nontoxic-appearing gentleman, no acute distress. Weight: 91.6 kg. BMI: 27.4. HEENT: PERRL, EOMI. Sclera anicteric. Moist mucous membranes. Neck: Supple. Respiratory: Lungs are clear to auscultation bilaterally. Cardiovascular: Regular rate and rhythm with S1-S2. Gastrointestinal: Abdomen is soft, tight, and distended, positive bowel sounds X 4 quadrants. Tenderness to palpation on the right lower quadrant. Genitourinary: Right testicle mod enlarged, firm, erythematous, and significantly tender to palpation per patient. Skin: Warm and dry. No rash or lesions on limited exam. Normal capillary refill. Extremities: No cyanosis, clubbing, or edema. Radial and pedal pulses intact. Neurological: Alert. Cranial nerves II-XII are grossly intact. No gross focal deficits. Psychiatric: Pleasant and cooperative with normal mood and affect. Judgment and insight intact. Objective Data Vital Signs Vital Signs: Vital Signs - 24 hr 05/25/24 22:18 05/26/24 06:00 05/26/24 10:04 Temperature 97.8 F 97.6 F Pulse Rate 96 95 Respiratory Rate 18 16 Blood Pressure 142/56 H 128/57 L Pulse Oximetry 96 93 Oxygen Delivery Room Air 05/26/24 15:17 Temperature 97.3 F L Pulse Rate 80 Respiratory Rate 16 Blood Pressure 137/64 Pulse Oximetry 97 Oxygen Delivery Intake/Output Intake/Output: Intake & Output 05/23/24 05/24/24 05/25/24 05/26/24 23:59 23:59 23:59 22:59 Intake Total 1200 2050 960 Balance 1200 2050 960 Meds/Results Medications: Active Medications Generic Name Dose Route Start Last Admin Trade Name Freq PRN Reason Stop Dose Admin Acetaminophen 650 mg 05/24/24 22:41 05/25/24 01:33 Acetaminophen 325 Mg Tablet PO 650 mg Q4H PRN Administration Mild Pain (1-3) or Fever Albuterol 2 puff 05/25/24 05:02 Albuterol Sulfate (*Sp) Aerosol 1 Puff INHALATION Q6H PRN Shortness Of Breath Atorvastatin Calcium 40 mg 05/25/24 09:00 05/26/24 09:35 Atorvastatin 40 Mg Tablet PO 40 mg DAILY PRAVIN Administration Azelastine HCl 1 spray 05/25/24 09:00 05/26/24 09:36 Azelastine Hcl Nasal 0.1% 137 Mcg/Spr 30 Ml Btl NASAL 1 spray Q12HR PRAVIN Administration Bisacodyl 5 mg 05/25/24 12:52 Bisacodyl 5 Mg Tablet Ec PO BID PRN Constipation Citalopram Hydrobromide 20 mg 05/25/24 09:00 05/26/24 09:35 Citalopram Hydrobromide 20 Mg Tablet PO 20 mg QAM PRAVIN Administration Dextrose 12.5 gm 05/25/24 05:01 Dextrose 50% 25 Gm/50 Ml Syringe IV PUSH PRN PRN Hypoglycemia Protocol Docusate Sodium 100 mg 05/25/24 09:00 05/26/24 09:35 Docusate Sodium 100 Mg Capsule PO 100 mg Q12HR PRAVIN Administration Enoxaparin Sodium 40 mg 05/25/24 09:00 05/26/24 09:37 Enoxaparin 40 Mg/0.4 Ml Syringe SUB-Q Not Given DAILY PRAVIN Famotidine 40 mg 05/25/24 09:00 05/26/24 09:35 Famotidine 20 Mg Tablet PO 40 mg DAILY PRAVIN Administration Fluticasone/Umeclidinium/Vilanterol 1 puff 05/25/24 08:00 05/26/24 09:10 Fluticasone/Umeclidin/Vilanter 200-62.5-25 Mcg Ellipta INHALATION 1 puff DAILYRT PRAVIN Administration Folic Acid 1 mg 05/25/24 09:00 05/26/24 09:35 Folic Acid 1 Mg Tablet PO 1 mg DAILY PRAVIN Administration Glipizide 5 mg 05/25/24 09:00 05/26/24 09:35 Glipizide Xl 5 Mg Tabcr PO 5 mg DAILY PRAVIN Administration Glucagon 1 mg 05/25/24 05:01 Glucagon For Inj 1 Mg Vial IM PRN PRN Hypoglycemia Protocol Glucose 15 gm 05/25/24 05:01 Glucose Oral Gel 15 Gm Of Glucse In 37.5 Gm Tube PO PRN PRN Hypoglycemia Protocol Hydromorphone HCl 0.5 mg 05/24/24 23:38 05/26/24 04:15 Hydromorphone Hcl Inj (*Crx) 1 Mg/Ml Syr IV PUSH 0.5 mg Q3H PRN Administration Pain Rated 7-10 Piperacillin Sod/Tazobactam Sod 2.25 gm in 50 mls @ 100 mls/hr 05/25/24 03:00 05/26/24 15:04 Zosyn 2.25 Gm/Ns 50 Ml IVPB 100 mls/hr Q6H PRAVIN Administration Levofloxacin/Dextrose 750 mg in 150 mls @ 100 mls/hr 05/26/24 22:00 Levaquin 750 Mg/D5w 150 Ml IVPB Q48H PRAVIN Dextrose 1,000 mls @ 100 mls/hr 05/25/24 05:01 Dextrose 5% 1,000 Ml IVPB PRN PRN Hypoglycemia Protocol Insulin Aspart 3 - 6 units 05/25/24 08:00 05/26/24 12:25 Insulin Aspart (*Bkc) 100 Units/Ml SUB-Q Not Given TIDWM [facility] Protocol Insulin Aspart 1 - 3 units 05/25/24 21:00 05/25/24 22:13 Insulin Aspart (*Bkc) 100 Units/Ml SUB-Q Not Given HS [facility] Protocol Lisinopril 5 mg 05/25/24 09:00 05/26/24 09:35 Lisinopril 5 Mg Tablet PO 5 mg DAILY PRAVIN Administration Loratadine 10 mg 05/25/24 09:00 05/26/24 09:35 Loratadine 10 Mg Tablet PO 10 mg QAM PRAVIN Administration Oxycodone/Acetaminophen 1 tablet 05/25/24 05:03 05/26/24 15:24 Oxycodone/Acetaminophen (*Crx) 5-325 Mg Tablet PO 1 tablet Q4H PRN Administration Pain Rated 4-6 Polyethylene Glycol 17 gm 05/25/24 09:00 05/26/24 09:34 Polyethylene Glycol 3350 17 Gm Powd.Pack PO 17 gm QAM PRAVIN Administration Tamsulosin HCl 0.4 mg 05/25/24 09:00 05/26/24 09:35 Tamsulosin Hcl 0.4 Mg Capsule PO 0.4 mg DAILY PRAVIN Administration Zolpidem Tartrate 5 mg 05/24/24 22:48 05/25/24 01:24 Zolpidem Tartrate (*Crx) 5 Mg Tablet PO 5 mg HS PRN Administration Insomnia Radiology Results: ITS Impressions Scrotum Ultrasound 05/24/24 20:45 IMPRESSION: Enlarged hyperemic right testicle suggestive of epididymoorchitis Bilateral septated hydroceles. Otherwise, normal testicular ultrasound. Abdomen/Pelvis CT 05/24/24 21:22 IMPRESSION: 1. No evidence of appendicitis, diverticulitis or intestinal obstruction 2. Slight enhancement of the renal pelvis and ureters wall which raises the possibility of infection. 3. Constipation. 4. Thickened wall of the urinary bladder. Evaluation for cystitis advised. Enlarged prostate. 5. Small cysts in the liver. Ultrasound evaluation advised. 6. Bilateral inguinal hernias with bilateral hydrocele. Labs Labs: Laboratory Results - last 24 hr 05/25/24 05/25/24 05/26/24 17:41 20:46 08:56 WBC RBC Hgb Hct MCV MCH MCHC RDW Plt Count MPV Immature Gran % (Auto) Neut % (Auto) Lymph % (Auto) [place] % (Auto) Eos % (Auto) Baso % (Auto) Lymph # (Auto) [place] # (Auto) Eos # (Auto) Baso # (Auto) Abs Immat Gran (auto) Absolute Neuts (auto) Absolute Nucleated RBC Nucleated RBC % POC Capillary Glucose 146 H 141 H 118 H 05/26/24 05/26/24 09:42 12:08 WBC 16.0 H RBC 3.56 L Hgb 10.0 L Hct 32.2 L MCV 90.4 MCH 28.1 MCHC 31.1 L RDW 13.0 Plt Count 216 MPV 9.8 Immature Gran % (Auto) 0.8 H Neut % (Auto) 83.9 H Lymph % (Auto) 6.2 L [place] % (Auto) 5.6 Eos % (Auto) 3.1 Baso % (Auto) 0.4 Lymph # (Auto) 0.99 [place] # (Auto) 0.9 H Eos # (Auto) 0.5 H Baso # (Auto) 0.1 Abs Immat Gran (auto) 0.12 H Absolute Neuts (auto) 13.4 H Absolute Nucleated RBC 0.000 Nucleated RBC % 0.0 POC Capillary Glucose 166 H Quality VTE Prophylaxis VTE prophylaxis: pharmacologic ordered Hospitalist MIPS Advance Care Plan I have confirmed that the patient's Advanced Care Plan is present, code status is documented, or surrogate decision maker is listed in patient medical record.: Yes Medication Reconciliation I have utilized all available resources to obtain, update and review the patients current medications (includes all prescriptions, OTC, herbals, cannabis, and nutritional supplements).: Yes
[2024-05-26 17:38] LABS: Glucose Point of Care 161 mg/dl (65-105)
[2024-05-26 21:12] VITALS: BP 126/66; PULSE 61; RESP 20; TEMP 36.7; O2SAT 95
[2024-05-26] MEDS: levoFLOXacin 750 MG/D5W 150 ML 750 MG/150 ML BAG 100 MG IVPB (21:14)
[2024-05-26] MEDS: ZOLPIDEM TARTRATE (*CRX) 5 MG TABLET PO (22:45)
[2024-05-26 22:47] LABS: Glucose Point of Care 167 mg/dl (65-105)
[2024-05-27] MEDS: PIPERACILLIN/TAZ 2.25G/NS 50ML 2.25 GM/50 ML BAG IVPB ×2 (03:48→08:25)
[2024-05-27] MEDS: oxyCODONE/ACETAMINOPHEN (*CRX) 5-325 MG TABLET 1 TABLET PO ×2 (03:59→08:43)
[2024-05-27 05:49] LABS: Basophils Absolute Auto 0.1 K/mm3 (0.0-0.1); Basophils Percent Auto 0.6 % (0.2-1.2); Eosinophils Absolute Auto 0.6 K/mm3 (0-0.3); Eosinophils Percent Auto 5.9 % (0-4.4); Hematocrit 30.6 % (42.0-52.0); Hemoglobin 9.4 g/dL (14.0-18.0); Immature Granulocyte Absolute 0.08 K/mm3 (0.00-0.031); Immature Granulocyte Percent A 0.8 % (0-0.5); Lymphocytes Absolute Auto 0.73 K/mm3 (0.9-3.2); Mean Corpuscular HGB Conc 30.7 g/dl (32-36); Mean Corpuscular Volume 91.1 fl (80-100); Mean Platelet Volume 9.8 fl (7.4-10.4); Monocytes Absolute Auto 0.8 K/mm3 (0.1-0.6); Monocytes Percent Auto 7.5 % (2.6-8.5); Neutrophils Absolute Auto 8.2 K/mm3 (1.3-6.7); Neutrophils Percent Auto 78.2 % (45.5-73.1); Platelet Count Result 214 k/mm3 (150-375); Red Blood Count 3.36 M/mm3 (4.6-6.20); Red Cell Distribution Width 12.8 % (11.5-14.5); White Blood Count 10.5 K/mm3 (4.5-10.0)
[2024-05-27 05:53] VITALS: BP 117/72; PULSE 81; RESP 20; TEMP 36.6; O2SAT 96
[2024-05-27 06:05] LABS: Anion Gap 8 mmol/L (4-12); Blood Urea Nitrogen 23 mg/dL (9-20); Calcium 8.1 mg/dL (8.4-10.2); Carbon Dioxide 24 mmol/L (22-30); Chloride 106 mmol/L (98-107); Estimated CRCL calculation 28 ml/min; Estimated Glomerular Filt Rate 30; Glucose 103 mg/dL (65-110); Sodium 138 mmol/L (137-145)
--- NOTE | 2024-05-27 07:51 | WPDUROPN2 ---
Progress Note: A&P Assessment and Plan (1) Epididymoorchitis: Code(s): N45.3 - Epididymo-orchitis Status: Acute Assessment and Plan: Pain and WBC much improved Home on Levaquin 500mg po x14 days Subjective Subjective Date/Time Seen: 05/27/24 07:51 Interval history: Feeling better - less scrotal pain Review of Systems Cardiovascular: Cardiovascular: Denies chest pain, Denies lightheadedness, Denies palpitations and Denies dyspnea Respiratory: Respiratory: Denies dyspnea Gastrointestinal: Gastrointestinal: Denies diarrhea, Denies nausea and Denies vomiting Genitourinary: Genitourinary: Denies hematuria and Denies dysuria Endocrine: Endocrine: Denies palpitations Exam Narrative: General: Well-developed, nontoxic-appearing gentleman, no acute distress. Weight: 91.6 kg. BMI: 27.4. HEENT: PERRL, EOMI. Sclera anicteric. Moist mucous membranes. Neck: Supple. Respiratory: Lungs are clear to auscultation bilaterally. Cardiovascular: Regular rate and rhythm with S1-S2. Gastrointestinal: Abdomen is soft and nondistended with positive bowel sounds. He is somewhat tender to palpation the right lower quadrant. No guarding or rebound tenderness. Genitourinary: Right testicle mod enlarged, firm, erythematous, and significantly tender to palpation per patient. Skin: Warm and dry. No rash or lesions on limited exam. Normal capillary refill. Extremities: No cyanosis, clubbing, or edema. Radial and pedal pulses intact. Neurological: Alert. Cranial nerves II-XII are grossly intact. No gross focal deficits. Psychiatric: Pleasant and cooperative with normal mood and affect. Judgment and insight intact. Objective Data Vital Signs Vital Signs: Vital Signs - 24 hr 05/26/24 10:04 05/26/24 15:17 05/26/24 20:50 Temperature 97.3 F L Pulse Rate 80 Respiratory Rate 16 Blood Pressure 137/64 Pulse Oximetry 97 Oxygen Delivery Room Air Room Air 05/26/24 21:12 05/27/24 05:53 Temperature 98.1 F 97.9 F Pulse Rate 61 81 Respiratory Rate 20 20 Blood Pressure 126/66 117/72 Pulse Oximetry 95 96 Oxygen Delivery Intake/Output Intake/Output: Intake & Output 05/25/24 05/26/24 05/26/24 05/27/24 00:59 00:59 23:59 23:59 Intake Total 530 Balance 530 Meds/Results Medications: Active Medications Generic Name Dose Route Start Last Admin Trade Name Freq PRN Reason Stop Dose Admin Acetaminophen 650 mg 05/24/24 22:41 05/25/24 01:33 Acetaminophen 325 Mg Tablet PO 650 mg Q4H PRN Administration Mild Pain (1-3) or Fever Albuterol 2 puff 05/25/24 05:02 Albuterol Sulfate (*Sp) Aerosol 1 Puff INHALATION Q6H PRN Shortness Of Breath Atorvastatin Calcium 40 mg 05/25/24 09:00 05/26/24 09:35 Atorvastatin 40 Mg Tablet PO 40 mg DAILY PRAVIN Administration Azelastine HCl 1 spray 05/25/24 09:00 05/26/24 20:40 Azelastine Hcl Nasal 0.1% 137 Mcg/Spr 30 Ml Btl NASAL 1 spray Q12HR PRAVIN Administration Bisacodyl 5 mg 05/25/24 12:52 Bisacodyl 5 Mg Tablet Ec PO BID PRN Constipation Citalopram Hydrobromide 20 mg 05/25/24 09:00 05/26/24 09:35 Citalopram Hydrobromide 20 Mg Tablet PO 20 mg QAM PRAVIN Administration Dextrose 12.5 gm 05/25/24 05:01 Dextrose 50% 25 Gm/50 Ml Syringe IV PUSH PRN PRN Hypoglycemia Protocol Docusate Sodium 100 mg 05/25/24 09:00 05/26/24 20:48 Docusate Sodium 100 Mg Capsule PO Not Given Q12HR PRAVIN Enoxaparin Sodium 40 mg 05/25/24 09:00 05/26/24 09:37 Enoxaparin 40 Mg/0.4 Ml Syringe SUB-Q Not Given DAILY PRAVIN Famotidine 40 mg 05/25/24 09:00 05/26/24 09:35 Famotidine 20 Mg Tablet PO 40 mg DAILY PRAVIN Administration Fluticasone/Umeclidinium/Vilanterol 1 puff 05/25/24 08:00 05/26/24 09:10 Fluticasone/Umeclidin/Vilanter 200-62.5-25 Mcg Ellipta INHALATION 1 puff DAILYRT PRAVIN Administration Folic Acid 1 mg 05/25/24 09:00 05/26/24 09:35 Folic Acid 1 Mg Tablet PO 1 mg DAILY PRAVIN Administration Glipizide 5 mg 05/25/24 09:00 05/26/24 09:35 Glipizide Xl 5 Mg Tabcr PO 5 mg DAILY PRAVIN Administration Glucagon 1 mg 05/25/24 05:01 Glucagon For Inj 1 Mg Vial IM PRN PRN Hypoglycemia Protocol Glucose 15 gm 05/25/24 05:01 Glucose Oral Gel 15 Gm Of Glucse In 37.5 Gm Tube PO PRN PRN Hypoglycemia Protocol Hydromorphone HCl 0.5 mg 05/24/24 23:38 05/26/24 04:15 Hydromorphone Hcl Inj (*Crx) 1 Mg/Ml Syr IV PUSH 0.5 mg Q3H PRN Administration Pain Rated 7-10 Piperacillin Sod/Tazobactam Sod 2.25 gm in 50 mls @ 100 mls/hr 05/25/24 03:00 05/27/24 04:18 Zosyn 2.25 Gm/Ns 50 Ml IVPB Infused Q6H PRAVIN Infusion Levofloxacin/Dextrose 750 mg in 150 mls @ 100 mls/hr 05/26/24 22:00 05/26/24 22:44 Levaquin 750 Mg/D5w 150 Ml IVPB Infused Q48H PRAVIN Infusion Dextrose 1,000 mls @ 100 mls/hr 05/25/24 05:01 Dextrose 5% 1,000 Ml IVPB PRN PRN Hypoglycemia Protocol Insulin Aspart 3 - 6 units 05/25/24 08:00 05/26/24 17:42 Insulin Aspart (*Bkc) 100 Units/Ml SUB-Q Not Given TIDWM [facility] Protocol Insulin Aspart 1 - 3 units 05/25/24 21:00 05/27/24 00:17 Insulin Aspart (*Bkc) 100 Units/Ml SUB-Q Not Given HS [facility] Protocol Lisinopril 5 mg 05/25/24 09:00 05/26/24 09:35 Lisinopril 5 Mg Tablet PO 5 mg DAILY PRAVIN Administration Loratadine 10 mg 05/25/24 09:00 05/26/24 09:35 Loratadine 10 Mg Tablet PO 10 mg QAM PRAVIN Administration Oxycodone/Acetaminophen 1 tablet 05/25/24 05:03 05/27/24 03:59 Oxycodone/Acetaminophen (*Crx) 5-325 Mg Tablet PO 1 tablet Q4H PRN Administration Pain Rated 4-6 Polyethylene Glycol 17 gm 05/25/24 09:00 05/26/24 09:34 Polyethylene Glycol 3350 17 Gm Powd.Pack PO 17 gm QAM PRAVIN Administration Tamsulosin HCl 0.4 mg 05/25/24 09:00 05/26/24 09:35 Tamsulosin Hcl 0.4 Mg Capsule PO 0.4 mg DAILY PRAVIN Administration Zolpidem Tartrate 5 mg 05/24/24 22:48 05/26/24 22:45 Zolpidem Tartrate (*Crx) 5 Mg Tablet PO 5 mg HS PRN Administration Insomnia Radiology Results: ITS Impressions Scrotum Ultrasound 05/24/24 20:45 IMPRESSION: Enlarged hyperemic right testicle suggestive of epididymoorchitis Bilateral septated hydroceles. Otherwise, normal testicular ultrasound. Abdomen/Pelvis CT 05/24/24 21:22 IMPRESSION: 1. No evidence of appendicitis, diverticulitis or intestinal obstruction 2. Slight enhancement of the renal pelvis and ureters wall which raises the possibility of infection. 3. Constipation. 4. Thickened wall of the urinary bladder. Evaluation for cystitis advised. Enlarged prostate. 5. Small cysts in the liver. Ultrasound evaluation advised. 6. Bilateral inguinal hernias with bilateral hydrocele. Labs Labs: Laboratory Results - last 24 hr 05/26/24 05/26/24 05/26/24 08:56 09:42 12:08 WBC 16.0 H RBC 3.56 L Hgb 10.0 L Hct 32.2 L MCV 90.4 MCH 28.1 MCHC 31.1 L RDW 13.0 Plt Count 216 MPV 9.8 Immature Gran % (Auto) 0.8 H Neut % (Auto) 83.9 H Lymph % (Auto) 6.2 L [place] % (Auto) 5.6 Eos % (Auto) 3.1 Baso % (Auto) 0.4 Lymph # (Auto) 0.99 [place] # (Auto) 0.9 H Eos # (Auto) 0.5 H Baso # (Auto) 0.1 Abs Immat Gran (auto) 0.12 H Absolute Neuts (auto) 13.4 H Absolute Nucleated RBC 0.000 Nucleated RBC % 0.0 Sodium Potassium Chloride Carbon Dioxide Anion Gap BUN Creatinine Estim Creat Clear Calc Estimated GFR Glucose POC Capillary Glucose 118 H 166 H Calcium 11/10/1405/26/24 05/27/24 17:30 19:29 05:41 WBC 10.5 H RBC 3.36 L Hgb 9.4 L Hct 30.6 L MCV 91.1 MCH 28.0 MCHC 30.7 L RDW 12.8 Plt Count 214 MPV 9.8 Immature Gran % (Auto) 0.8 H Neut % (Auto) 78.2 H Lymph % (Auto) 7.0 L [place] % (Auto) 7.5 Eos % (Auto) 5.9 H Baso % (Auto) 0.6 Lymph # (Auto) 0.73 L [place] # (Auto) 0.8 H Eos # (Auto) 0.6 H Baso # (Auto) 0.1 Abs Immat Gran (auto) 0.08 H Absolute Neuts (auto) 8.2 H Absolute Nucleated RBC 0.000 Nucleated RBC % 0.0 Sodium 138 Potassium 4.0 Chloride 106 Carbon Dioxide 24 Anion Gap 8 BUN 23 H Creatinine 2.10 H Estim Creat Clear Calc 28 Estimated GFR 30 L Glucose 103 POC Capillary Glucose 161 H 167 H Calcium 8.1 L
[2024-05-27 08:14] LABS: Glucose Point of Care 110 mg/dl (65-105)
[2024-05-27] MEDS: FOLIC ACID 1 MG TABLET PO (08:25)
[2024-05-27] MEDS: polyethylene glycoL 3350 17 GM POWD.PACK PO (08:25)
[2024-05-27] MEDS: ATORVASTATIN 40 MG TABLET PO (08:26)
[2024-05-27] MEDS: FAMOTIDINE 20 MG TABLET 40 MG PO (08:26)
[2024-05-27] MEDS: lisinopriL 5 MG TABLET PO (08:26)
[2024-05-27] MEDS: CITALOPRAM HYDROBROMIDE 20 MG TABLET PO (08:26)
[2024-05-27] MEDS: LORATADINE 10 MG TABLET PO (08:26)
[2024-05-27] MEDS: AZELASTINE HCL NASAL 0.1% 137 MCG/SPR 30 ML BTL 1 SPRAY NASAL (08:26)
[2024-05-27] MEDS: glipiZIDE XL 5 MG TABCR PO (08:26)
[2024-05-27] MEDS: DOCUSATE SODIUM 100 MG CAPSULE PO (08:26)
[2024-05-27] MEDS: TAMSULOSIN HCL 0.4 MG CAPSULE PO (08:26)
[2024-05-27] MEDS: ENOXAPARIN 40 MG/0.4 ML SYRINGE SUB-Q (08:27)
[2024-05-27] MEDS: FLUTICASONE/UMECLIDIN/VILANTER 200-62.5-25 MCG ELLIPTA 1 PUFF INHALATION (10:51)
--- NOTE | 2024-05-27 11:32 | PM.DS ---
DS: Admitting Diagnosis Discharge Date 05/27/2024 Admitting Diagnosis Right-Lower Abdominal Pain DS: Discharge Diagnosis Discharge Diagnosis (1) Epididymoorchitis: Code(s): N45.3 - Epididymo-orchitis Status: Acute Assessment and Plan: - US Scrotum: Findings suggestive of epididymo-orchitis. - Patient treated with Levaquin and Zosyn. - Cleared for discharge by Urologist. - No signs of abscess noted inpatient. - WBC's trended down during admission and no fevers noted inpatient. - Will be discharged on PO Levaquin for 14 days per Urologist recommendations. (2) Urinary tract infection: Code(s): N39.0 - Urinary tract infection, site not specified Status: Acute Assessment and Plan: - UA positive for UTI. - Urine culture +ve for Klebs. Pneumoniae, pansensitive. - Blood cultures NGTD. - Covered by antibiotics used for #1 treatment. - Will be covered by Levaquin 14 days treatment. (3) Constipation: Code(s): K59.00 - Constipation, unspecified Status: Acute Assessment and Plan: - Resolved inpatient with laxatives and stool softeners. (4) Benign prostatic hyperplasia: Code(s): N40.0 - Benign prostatic hyperplasia without lower urinary tract symptoms Status: Acute Assessment and Plan: - Continued on Tamsulosin inpatient. (5) Chronic kidney disease, stage 3: Code(s): N18.30 - Chronic kidney disease, stage 3 unspecified Status: Acute Assessment and Plan: - Unclear recent baseline. - Kidney function appear baseline after IVF hydration. 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 (6) Hypertension: Code(s): I10 - Essential (primary) hypertension Status: Acute Assessment and Plan: - BP well controlled inpatient. - Continue Lisinopril. (7) Type 2 diabetes mellitus: Code(s): E11.9 - Type 2 diabetes mellitus without complications Status: Acute Assessment and Plan: - Glipizide resumed inpatient. - Diabetic diet inpatient. - BGL levels fairly well controlled inpatient. (8) Chronic obstructive pulmonary disease: Code(s): J44.9 - Chronic obstructive pulmonary disease, unspecified Status: Acute Assessment and Plan: - Stable. - Resume home bronchodilators. (9) Esophageal reflux disease: Code(s): K21.9 - Gastro-esophageal reflux disease without esophagitis Status: Acute Assessment and Plan: - Stable inpatient with famotidine. - Resume home meds. (10) Hyperlipidemia: Code(s): E78.5 - Hyperlipidemia, unspecified Status: Acute Assessment and Plan: - Continued on statin inpatient (11) Acute epididymo-orchitis: Code(s): N45.3 - Epididymo-orchitis Status: Acute Plan Discharge Home on Self Care DS: Summary Hospital Course Reason for hospitalization: Epididymoorchitis Hospital Course: Patient presented to the ER with severe pain to his right lower abdomen and right scrotum. US scrotum was suggestive of Enlarged hyperemic right testicle suggestive of epididymoorchitis Bilateral septated hydroceles. Patient has been treated with IV Zosyn and Levaquin. His UA was also indicative of UTI, which was covered by the patient's IV abx. Patient's urine culture grew pansensitive Klebs Pneumoniae, and blood cultures were negative. Pain meds were given for comfort, and the patient had constipation issues too which were resolved with laxatives and stool softeners. Patient was followed by Urologist who has cleared him for discharge. All his other chronic conditions remained stable inpatient. Patient is medically stable for discharge with no acute distress noted or reported prior to discharge. Status at Discharge Functional status at discharge: uses cane/walker Overall status at discharge: patient is progressing back to baseline Time Spent with Patient Time attestation: Total time spent providing and/or coordinating discharge services: Time spent: Greater than 30 minutes Exam Narrative: General: Well-developed, nontoxic-appearing gentleman, no acute distress. Weight: 91.6 kg. BMI: 27.4. HEENT: PERRL, EOMI. Sclera anicteric. Moist mucous membranes. Neck: Supple. Respiratory: Lungs are clear to auscultation bilaterally. Cardiovascular: Regular rate and rhythm with S1-S2. Gastrointestinal: Abdomen is soft, tight, and distended, positive bowel sounds X 4 quadrants. Tenderness to palpation on the right lower quadrant. Genitourinary: Right testicle mod enlarged, firm, erythematous, and significantly tender to palpation per patient. Skin: Warm and dry. No rash or lesions on limited exam. Normal capillary refill. Extremities: No cyanosis, clubbing, or edema. Radial and pedal pulses intact. Neurological: Alert. Cranial nerves II-XII are grossly intact. No gross focal deficits. Psychiatric: Pleasant and cooperative with normal mood and affect. Judgment and insight intact. DS: Data Data Completed and Pending Labs on day of discharge: Labs from last 24 hours 05/27/24 05/27/24 05/26/24 08:07 05:41 19:29 WBC 10.5 H RBC 3.36 L Hgb 9.4 L Hct 30.6 L MCV 91.1 MCH 28.0 MCHC 30.7 L RDW 12.8 Plt Count 214 MPV 9.8 Immature Gran % (Auto) 0.8 H Neut % (Auto) 78.2 H Lymph % (Auto) 7.0 L [place] % (Auto) 7.5 Eos % (Auto) 5.9 H Baso % (Auto) 0.6 Lymph # (Auto) 0.73 L [place] # (Auto) 0.8 H Eos # (Auto) 0.6 H Baso # (Auto) 0.1 Abs Immat Gran (auto) 0.08 H Absolute Neuts (auto) 8.2 H Absolute Nucleated RBC 0.000 Nucleated RBC % 0.0 Sodium 138 Potassium 4.0 Chloride 106 Carbon Dioxide 24 Anion Gap 8 BUN 23 H Creatinine 2.10 H Estim Creat Clear Calc 28 Estimated GFR 30 L Glucose 103 POC Capillary Glucose 110 H 167 H Calcium 8.1 L 05/26/24 05/26/24 17:30 12:08 WBC RBC Hgb Hct MCV MCH MCHC RDW Plt Count MPV Immature Gran % (Auto) Neut % (Auto) Lymph % (Auto) [place] % (Auto) Eos % (Auto) Baso % (Auto) Lymph # (Auto) [place] # (Auto) Eos # (Auto) Baso # (Auto) Abs Immat Gran (auto) Absolute Neuts (auto) Absolute Nucleated RBC Nucleated RBC % Sodium Potassium Chloride Carbon Dioxide Anion Gap BUN Creatinine Estim Creat Clear Calc Estimated GFR Glucose POC Capillary Glucose 161 H 166 H Calcium Preliminary micro results at discharge 05/24/24 21:59 Blood Culture - Preliminary Blood 05/24/24 21:58 Blood Culture - Preliminary Blood Discharge Plan Discharge Attending physician on discharge: Sergo Clark Consulting providers: Dante Wilcox Discharging Clinician: Oksana Tracey Anticipated Discharge Date/Time: 05/27/24 11:52 Patient Disposition: Home, Self-Care Activity: as tolerated Diet: heart healthy and diabetic Patient Instructions: Antibiotic Form Patient Language: Finnish Stand Alone Forms: General Discharge Information Follow-up/Referrals: Dante Wilcox MD [Physician] - 2 Weeks Demarcus Mancera DO [Primary Care Provider] - 1 Week Discharge Medications: New tramadol-acetaminophen 37.5-325 mg tablet 1 tablet PO Q6H PRN (Reason: pain) Qty: 30 0RF docusate sodium 100 mg Capsule 100 mg PO Q12HR Qty: 20 0RF polyethylene glycol 3350 [Miralax] 17 gram Powder In Packet 17 g PO QAM Qty: 14 0RF levofloxacin 500 mg tablet 500 mg PO DAILY Qty: 14 0RF Continued famotidine 40 mg tablet 40 mg PO DAILY azelastine 137 mcg (0.1 %) aerosol,spray 137 mcg intranasal Q12H Rx Instructions: administer into each nostril Trelegy Ellipta 200-62.5-25 mcg blister with device 1 inh inhalation DAILY cetirizine [Zyrtec] 10 mg Tablet 10 mg PO BID albuterol sulfate [Ventolin HFA] 90 mcg/actuation HFA aerosol inhaler 2 puff INHALATION Q6H PRN (Reason: Shortness Of Breath) cyanocobalamin (vitamin B-12) 1,000 mcg/mL solution 1,000 mcg IM MONTHLY Qty: 10 0RF atorvastatin 40 mg tablet 40 mg PO DAILY Qty: 90 3RF folic acid 1 mg tablet 1 mg PO DAILY Qty: 90 2RF citalopram 20 mg tablet 20 mg PO QAM Qty: 90 2RF lisinopril 5 mg tablet 5 mg PO DAILY Qty: 90 2RF tamsulosin 0.4 mg capsule 0.4 mg PO DAILY Qty: 90 3RF glipizide 5 mg tablet extended release 24hr 5 mg PO DAILY Qty: 90 2RF Date of admission: 05/25/24 09:15 Primary Care Provider: Demarcus Mancera Admitting Provider: Mayela Weber Attending physician on admission: Sergo Clark Condition: Stable Quality If No VTE Prophylaxis Answer both mechanical and pharmacologic: Reason no mechanical VTE proph: low risk/not indicated Hospitalist MIPS Heart Failure (Exclusion) Patient has history of Heart Transplant or Left Ventricular Assistive Device?: No IF YES, STOP HERE Heart Failure (Qualifier) Patient has current or prior documentation of LVEF less than or equal to 40%, or mod/servere depressed LVSF?: No IF NO, STOP HERE If Yes, Heart Failure (Qualifier) Patient was prescribed or already taking an Angiotensin-Converting Enzyme (EDWIN) Inhibitor, or Antiotensin Receptor [place] (ARB): Yes Patient was prescribed or already taking bisoprolol, carvedilol, or sustained release metoprolol succinate: No If Medications not prescribed/taking Reason patient not prescribed/taking bisoprolol, carvedilol, or sustained realease metoprolol succinate: Patient reasons: pt declined or other pt reason (Patient refused)
[2024-05-27 11:43] LABS: Glucose Point of Care 171 mg/dl (65-105)
[2024-05-27 14:00] VITALS: BP 122/57; PULSE 94; RESP 20; TEMP 36.7; O2SAT 93
== END 2024-05-27 16:40 | disposition home or self-care (01) | DRG 728 ==
LOC: ANHED 22:29 → ANH3MED 05-25 00:07
PROVIDERS: Internal Medicine; Physician Assistant; Urology; Admitting Provider Internal Medicine; Emergency Provider Emergency Medicine; PCP Internal Medicine; Visit Provider Nurse Practitioner Adult Health
DX: N45.3 Epididymo-orchitis (principal); N39.0 Urinary tract infection, site not specified; N17.9 Acute kidney failure, unspecified; B96.1 Klebsiella pneumoniae [K. pneumoniae] as the cause of diseases classified elsewhere; N43.2 Other hydrocele; K59.00 Constipation, unspecified; N40.0 Benign prostatic hyperplasia without lower urinary tract symptoms; I12.9 Hypertensive chronic kidney disease with stage 1 through stage 4 chronic kidney disease, or unspecified chronic kidney disease; E11.22 Type 2 diabetes mellitus with diabetic chronic kidney disease; N18.30 Chronic kidney disease, stage 3 unspecified; J44.9 Chronic obstructive pulmonary disease, unspecified; K21.9 Gastro-esophageal reflux disease without esophagitis; E78.5 Hyperlipidemia, unspecified; Z87.891 Personal history of nicotine dependence
CPT/HCPCS: 36415; 74177; 76870; 80048; 80053; 81001; 82948; 83036; 83690; 83735; 85025; 85027; 87040; 87086; 87186; 93005; 93976; 94640; 96365; 96366; 96367; 96375; 99285; A9270; J1171; J1650; J1956; J2405; J2543; J7030; Q9967

== ENCOUNTER 2024-06-07 13:04 | Outpatient (CLI) | payer MEDICARE, SELFPAY ==
[2024-06-07 13:37] LABS: Add Urine Microscopic? NO; Appearance Urine Clear (Clear); Bilirubin Urine Negative (Negative); Blood Urine Negative (Negative); Color Urine Yellow (Yellow); Glucose Urine UA Negative (Negative); Ketones Urine Trace mg/dL (Negative); Leukocyte Esterase Ur Negative LEU/UL (Negative); Nitrate Urine Negative (Negative); Protein Urine Negative (Negative); Specific Grav Ur 1.023 (1.001-1.035); pH Urine 5.5 (5.0-9.0)
== END 2024-06-07 13:05 | disposition home or self-care (01) ==
PROVIDERS: PCP Internal Medicine; Visit Provider Internal Medicine
DX: R30.0 Dysuria (principal)
CPT/HCPCS: 81003

== ENCOUNTER 2024-06-19 14:21 | Outpatient (CLI) | payer MEDICARE, SELFPAY ==
--- NOTE | ~2024-06-19 | US_ITS ---
EXAMINATION: US renal BI DATE: 06/19/2024 14:46 INDICATION: Stage IIIB chronic kidney disease TECHNIQUE: Multiple ultrasound grayscale images of the kidneys were obtained. COMPARISON: None. FINDINGS: The right kidney measures 11.0 x 5.3 x 5.0 cm. The left kidney measures 11.5 x 5.4 x 4.8 cm. The kidn eys demonstrate normal echogenicity. 1.6 similar anechoic right renal cyst. There is no hydronephrosi s in either kidney. No stones identified. The bladder is normal. IMPRESSION: 1. 1.6 cm right renal cyst. Otherwise normal kidneys without hydronephrosis. Reviewed, dictated and finalized at location A. DENT MEDICAL OFFICER
== END 2024-06-19 14:22 | disposition home or self-care (01) ==
LOC: MICIMG 14:23
PROVIDERS: PCP Internal Medicine; Visit Provider Internal Medicine Nephrology
DX: N18.32 Chronic kidney disease, stage 3b (principal); N28.1 Cyst of kidney, acquired
CPT/HCPCS: 76775

== ENCOUNTER 2025-01-14 14:35 | Emergency (ER) | payer MEDICARE, SELFPAY ==
--- NOTE | ~2025-01-14 | XR_ITS ---
XR chest 2V Ordering provider: William Pacheco APRN History: 84 years Male with . cough for 2 weeks, copd hx . Comparison: February 02, 2016 FINDINGS: MEDIASTINUM: The cardiac silhouette is not enlarged. LUNGS: No infiltrates, effusions or pneumothorax. OTHER: No free air under the diaphragm. Degenerative spine. IMPRESSION: No acute cardiopulmonary pathology. Reviewed, dictated and finalized at location A.
[2025-01-14 14:44] VITALS: BP 149/63; PULSE 100; RESP 20; TEMP 36.5; O2SAT 97
[2025-01-14 14:47] VITALS: RESP 20; O2SAT 97
--- NOTE | 2025-01-14 14:58 | ED.URI ---
HPI - URI/Sore Throat General Chief Complaint: Upper Respiratory Infection Stated Complaint: Cough Time Seen by Provider: 01/14/25 14:50 Source: patient and RN notes reviewed Mode of arrival: ambulatory Limitations: no limitations History of Present Illness HPI Narrative: 84-year-old male presents Express Care complaining of cough for 2 weeks. Patient patient is also reporting congestion, sore throat. Patient denies any chest pain or shortness of breath. Patient has a history of COPD. Patient also reports increased sputum volume and increased sputum purulence than normal. Patient is a former smoker. Patient has tried [id number] therapy without relief. Patient states he frequently gets bronchitis during this time. Related Data Home Medications ?Medication ?Instructions ?Recorded ?Confirmed ?Last Taken ?Type cetirizine 10 mg tablet (Zyrtec) 10 mg PO BID 05/06/20 10/26/24 07/14/20 History famotidine 40 mg tablet 40 mg PO DAILY 11/09/22 10/26/24 Unknown History albuterol sulfate 90 mcg/actuation 2 puff inhalation Q6H PRN 05/25/24 10/26/24 Unknown History aerosol inhaler (Ventolin HFA) Shortness Of Breath azelastine 137 mcg (0.1 %) nasal intranasal 10/16/24 10/26/24 Unknown History spray fluticasone fur. 200 mcg-umeclid 1 inh inhalation DAILY 10/16/24 10/26/24 Unknown History 62.5 mcg-vilant 25 mcg inhalat.powder (Trelegy Ellipta) Allergies Allergy/AdvReac Type Severity Reaction Status Date / Time codeine AdvReac Intermediate PALMS Verified 01/14/25 14:48 HANDS START PEELING Sulfa (Sulfonamide AdvReac Unknown I DON'T Verified 01/14/25 14:48 Antibiotics) REMEMBER IT HAS BEEN SO LONG AGO paroxetine (From Paxil) AdvReac Other Verified 01/14/25 14:48 Review of Systems Review of Systems: CONSTITUTIONAL: Denies fever, chills, body aches, or sweats. EYES: Denies visual changes, redness, or discharge. ENT: Positive for congestion, sore throat. Negative for rhinorrhea or otalgia. CARDIOVASCULAR: Denies chest pain, palpitations, or edema. RESPIRATORY: Positive for cough. Negative for dyspnea or wheezing. GASTROINTESTINAL: Denies abdominal pain, nausea, vomiting, or diarrhea. GENITOURINARY: Denies dysuria or hematuria. SKIN: Denies rash or itching. MUSCULOSKELETAL: Denies back pain, joint pain, or myalgia. NEUROLOGIC: Denies headache, numbness, or weakness. PSYCHIATRIC: Denies anxiety or depression. All other systems reviewed are negative, except as documented in HPI. [facility] Past Medical History Medical History Neurogenic claudication Lumbar stenosis with neurogenic claudication Spinal stenosis of lumbar region Type 2 diabetes mellitus Chronic kidney disease, stage 3 Chronic obstructive pulmonary disease Benign prostatic hyperplasia Anxiety Asthma Depression Hyperlipidemia Hypertension Surgical History Surgical History History of lumbar surgery History of sinus surgery History of bilateral cataract extraction History of carpal tunnel release of both wrists Family History Family History Mother Family history of heart disease in male family member before age 55 Father Lung cancer Other Family history of cardiovascular disease Hypertension Social History Social History Social History: Surrogate medical decision maker: Cailin Sierra, spouse. Code status: Full code. Smoking packs per day: 1.25 Smoking cigarettes per day: 25.0 Years smoked: 25 Smoking pack-years: 31.25 Smoking status: Former smoker Tobacco type: cigarettes Alcohol intake: current Alcohol use details: Rarely Substance use: never Substance use type: does not use Do You Feel Safe in your Home?: Yes Lack of Transportation: No Lack of Food: Never True Current Housing: I Have Housing Concerned About Future Housing: No Difficulty Paying Gas/Electric Bills: No Difficulty Paying for Meds: No Currently Unemployed: No Education: Trade/Vocational Certificate Difficulty w/ Childcare or Family Care: No Living arrangements: with family Spiritual care concerns: No Comments At the time of my signature, I reviewed and agree with the nursing past medical, surgical, social, and family history. There is no relevant family history pertinent to the patient complaint. Exam Narrative: GENERAL: This is a well-nourished, well-developed adult, in no apparent distress. They are non ill-appearing, nontoxic appearing. HEAD: normocephalic, atraumatic. EYES: Sclera clear/white. Vision is grossly intact. Conjunctiva normal bilaterally. Extraocular movements intact. EARS: External ears normal, auditory canals clear and without drainage, TMs without erythema or perforation. Hearing grossly intact. NOSE: External nose normal with no obvious nasal discharge, nasal turbinates erythematous, no rhinorrhea. THROAT: Mucous membranes moist, posterior pharynx erythema can patchy without swelling, no exudate. Uvula is midline. Postnasal drip present. NECK: Neck supple, non-tender without lymphadenopathy, masses or thyromegaly. CARDIOVASCULAR: Regular rate and rhythm without murmurs, gallops, or rubs. RESPIRATORY: Diminished to lower lobes. Breath sounds equal bilaterally. No wheezes, rales, or rhonchi. SKIN: warm, Dry, intact with no suspicious lesions or rash, good texture and turgor. NEURO: awake, alert, and oriented to person, place and time. There were no obvious focal neurologic abnormalities. EXTREMITIES: No joint tenderness, effusion, or edema noted. BACK: Nontender without deformity. Course Course Emergency Course: Portions of this record may have been created with voice recognition software Level of Care: Express Care Visit Vital Signs Vital signs: Vital Signs Temperature 97.7 F 01/14/25 14:44 Pulse Rate 100 01/14/25 14:44 Respiratory Rate 01/14/25 14:44 Blood Pressure 149/63 H 01/14/25 14:44 Pulse Oximetry 97 01/14/25 14:44 Oxygen Delivery Room Air 01/14/25 14:44 Temperature 97.7 F 01/14/25 14:44 Pulse Rate 100 01/14/25 14:44 Respiratory Rate 01/14/25 14:47 Blood Pressure 149/63 H 01/14/25 14:44 Pulse Oximetry 97 01/14/25 14:47 Oxygen Delivery Room Air 01/14/25 14:44 MDM - URI/Sore Throat MDM Narrative Medical decision making narrative: Chest x-ray negative for any acute findings or pneumonia. Patient's cart no symptoms of COPD exacerbation. Will treat with prednisone and doxycycline. Strep is negative. Throat culture pending. Discussed physical exam findings. Advised supportive measures and signs/symptoms to go to the ER. Pt is appropriate for outpt treatment and f/u. Differential Diagnosis Differential diagnosis: Likely viral infection, bronchitis, pharyngitis and other (COPD exacerbation, bronchitis, pneumonia) Medical Records Attestation: I reviewed the patient's medical records. Lab Data Attestation: I reviewed the patient's lab results. Labs: Lab Results 01/14/25 Range/Units 15:04 POC Grp A Strep Screen Negative (Negative) Imaging Data Radiologist's impression: ITS Impressions Chest X-Ray 01/14/25 15:07 IMPRESSION: No acute cardiopulmonary pathology. Discharge Plan Discharge Clinical Impression: Acute exacerbation of chronic obstructive pulmonary disease Patient Disposition: Home Condition: Stable Instructions: Antibiotic Form, COPD (Chronic Obstructive Pulmonary Disease) (ED) Additional Instructions: Your chest x-ray is negative for any acute findings or pneumonia. Her symptoms are consistent with a COPD exacerbation. Please take the prednisone as directed, take in the morning with food. Take doxycycline as directed. Please wear sunscreen while taking doxycycline wire outside. You may take Tylenol as needed for pain or fevers. You may use Zyrtec or Claritin as needed for congestion or allergy symptoms. Use Flonase as needed for nasal congestion. Follow-up with PCP in 3-5 days. He developed any worsening shortness of breath, difficulty breathing, chest pain, fevers, or any other concerns please go to the ER immediately. Patient Language: Georgian Prescriptions: New prednisone 20 mg tablet 40 mg PO DAILY 5 Days Qty: 10 0RF doxycycline monohydrate 100 mg capsule 100 mg PO BID 5 Days Qty: 10 0RF No Action tizanidine 4 mg tablet 4 mg PO TID PRN (Reason: muscle spasticity) Qty: 30 0RF famotidine 40 mg tablet 40 mg PO DAILY azelastine 137 mcg (0.1 %) spray,non-aerosol intranasal Trelegy Ellipta 200-62.5-25 mcg blister with device 1 inh inhalation DAILY Rx Instructions: Samples cetirizine [Zyrtec] 10 mg Tablet 10 mg PO BID albuterol sulfate [Ventolin HFA] 90 mcg/actuation HFA aerosol inhaler 2 puff INHALATION Q6H PRN (Reason: Shortness Of Breath) docusate sodium 100 mg Capsule 100 mg PO Q12HR Qty: 20 0RF polyethylene glycol 3350 [Miralax] 17 gram Powder In Packet 17 g PO QAM Qty: 14 0RF atorvastatin 40 mg tablet 40 mg PO DAILY Qty: 90 3RF tamsulosin 0.4 mg capsule 0.4 mg PO DAILY Qty: 90 3RF glipizide 5 mg tablet extended release 24hr 5 mg PO DAILY Qty: 90 2RF ferrous sulfate 325 mg (65 mg iron) tablet 325 mg PO DAILY Qty: 90 1RF cyanocobalamin (vitamin B-12) 1,000 mcg/mL solution 1,000 mcg IM MONTHLY Qty: 10 1RF folic acid 1 mg tablet 1 mg PO DAILY Qty: 90 3RF lisinopril 5 mg tablet 5 mg PO DAILY Qty: 90 2RF citalopram 20 mg tablet 20 mg PO QAM Qty: 90 2RF Follow-up/Referrals: Demarcus Mancera DO [Primary Care Provider] - Time of Disposition: 15:24
[2025-01-14 15:07] LABS: EDSTREPNEGPOS1 Negative (Negative)
== END 2025-01-14 15:33 | disposition home or self-care (01) ==
PROVIDERS: PCP Internal Medicine
DX: J44.1 Chronic obstructive pulmonary disease with (acute) exacerbation (principal); I12.9 Hypertensive chronic kidney disease with stage 1 through stage 4 chronic kidney disease, or unspecified chronic kidney disease; E11.22 Type 2 diabetes mellitus with diabetic chronic kidney disease; N18.30 Chronic kidney disease, stage 3 unspecified; Z79.84 Long term (current) use of oral hypoglycemic drugs; M48.062 Spinal stenosis, lumbar region with neurogenic claudication; N40.0 Benign prostatic hyperplasia without lower urinary tract symptoms; E78.5 Hyperlipidemia, unspecified; Z98.42 Cataract extraction status, left eye; Z98.41 Cataract extraction status, right eye; Z87.891 Personal history of nicotine dependence
CPT/HCPCS: 71046; 87081; 87880; 99213; G0463

== ENCOUNTER 2025-02-12 15:11 | Outpatient (CLI) | payer MEDICARE, SELFPAY ==
--- NOTE | ~2025-02-12 | CT_ITS ---
EXAMINATION: CT abd pelvis lumbar wo con DATE: 02/12/2025 15:48 INDICATION: Z98.1 - Arthrodesis status TECHNIQUE: Computed tomography (CT) of the abdomen and pelvis and lumbar spine was performed without intravenous contrast. Automated exposure control and iterative reconstruction technique were employed . The dose-length product was 1111.17 mGy-cm. COMPARISON: None. FINDINGS: Lower thorax: Coronary artery, aortic, and mitral calcification. Minimal dependent scar/atelectasis. 5 mm left lower lobe pulmonary nodule. Liver: Simple left lobe cyst. Subcentimeter left lobe hypodensity, too small to characterize but most likely represents a cyst or hemangioma. Biliary/Gallbladder: Gallbladder is normal. No bile duct dilation. Pancreas: No mass or duct dilation. Spleen: Normal. Adrenals:No mass. Kidneys: No suspicious mass, obstructing stone, or hydronephrosis. Simple right midpole cyst. Moderat e bilateral perinephric stranding. Cortical thinning and atrophy. GI tract: No small or large bowel dilation. Normal appendix. Diverticulosis without diverticulitis. Mesentery/Peritoneum: No ascites, mass, or free air. Retroperitoneum: No mass. Atherosclerotic calcifications of intra-abdominal arterial vessels. Pelvis: Intramural urinary bladder wall fat. Mild urinary bladder wall thickening, with incomplete di stention. Markedly enlarged prostate.. Soft Tissues: Small uncomplicated fat-containing umbilical and bilateral inguinal hernias Bones: No acute osseous finding. Lumbar Spine: Posterior L4-5 fusion and L4 laminectomy. No hardware fracture or perihardware lucency. 6 nonrib-bear ing lumbar-type vertebral bodies, the last fully formed disc at the lumbosacral junction will be ariana gnated as L5-S1 in keeping with prior examinations. Pedicles intact. 3 mm anterolisthesis at L4-5. Li mbus vertebra at L4. Multilevel moderate degenerative disc disease. Moderate facet arthropathy in the upper lumbar spine. Severe central canal narrowing at L3-4 secondary to degenerative changes. No sev ere neural foraminal narrowing. IMPRESSION: 5 mm left lower lobe pulmonary nodule, which requires no additional evaluation unless the patient is at high risk, in which case consider an optional low-dose noncontrast CT of the chest in one year. Urinary bladder wall thickening may be secondary to incomplete distention, chronic outlet obstruction from prostatomegaly, or cystitis. Transitional spine anatomy, see above discussion. Uncomplicated appearing L4-5 posterior fusion hardware. Grade 1 anterolisthesis at L4-5. Multilevel moderate lumbar facet arthropathy and degenerative disc disease. Severe central canal narrowing at L3-4 secondary to degenerative changes. Reviewed, dictated and finalized at location K. IMPRESSION: 5 mm left lower lobe pulmonary nodule, which requires no additional evaluation unless the patient is at high risk, in which case consider an optional low-dose noncontrast CT of the chest in one year. 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 Transitional spine anatomy, see above discussion. Uncomplicated appearing L4-5 posterior fusion hardware. Grade 1 anterolisthesis at L4-5. Multilevel moderate lumbar facet arthropathy and degenerative disc disease. Severe central canal narrowing at L3-4 secondary to degenerative changes.
--- NOTE | ~2025-02-12 | XR_ITS ---
XR lumbar spine min 4V 02/12/2025 15:42 Indication: Arthrodesis status Procedure: 5 views lumbar spine Comparison: 08/08/2024 Findings: Vertebral body heights are maintained. Pedicles screws transfix the L4-5 vertebral bodies. Pedicle screws intact. There is grade 1 spondylolisthesis at L4-5. There is mild-moderate multilevel disc narrowing. No acute fracture is identified. Mild levocurvature of the lumbar spine. Sacral anila en are symmetric. Impression: 1: Moderate lumbar spondylosis with posterior fusion at L4-5. Reviewed, dictated and finalized at location A. Impression: 1: Moderate lumbar spondylosis with posterior fusion at L4-5.
--- OUTSIDE RECORDS SUMMARY | 2025-02-12 15:16 | XMS_ITS | Clinical Summary ---
Author Organization [facility] Address [address] [place] [address] Phone Care Team Providers Care Computer Game Designer Name Role Phone Zachary Andrade MD Unavailable [phone] Allergies Active Allergy Reactions Criticality Noted Date Comments Codeine Other (see Comments) Low 04/22/2013 Flakiness of skin Paroxetine Other (see Comments) High 04/22/2013 Severe Depression Sulfa Antibiotics Hives High 04/22/2013 Sulfanilamide Hives 10/27/2021 Medications atorvastatin (LIPITOR) 40 MG TabletIndicatio ns:Iron deficiency anemia secondary to inadequate dietary iron intake,Cold intolerance Take 40 mg by mouth. 1 Active cetirizine (ZyrTEC) 10 MG TabletIndicatio ns:Iron deficiency anemia secondary to inadequate dietary iron intake,Cold intolerance Take 1 Tablet by mouth. 6 Active citalopram (CeleXA) 20 MG TabletIndicatio ns:Iron deficiency anemia secondary to inadequate dietary iron intake,Cold intolerance Take 20 mg by mouth. 1 Active ferrous sulfate 324 MG Tablet Delayed ResponseIndicat ions:Iron deficiency anemia secondary to inadequate dietary iron intake,Cold intolerance Take 324 mg by mouth. 1 Active folic acid (FOLVITE) 1 MG TabletIndicatio ns:Iron deficiency anemia secondary to inadequate dietary iron intake,Cold intolerance Take 1 mg by mouth. 1 Active Fluticasone-Ume clidin-Vilant (Trelegy Ellipta) 200-62.5-25 MCG/INH AEROSOL POWDER, BREATH ACTIVATEDIndica tions:Iron deficiency anemia secondary to inadequate dietary iron intake,Cold intolerance take by inhalation. Active famotidine (PEPCID) 40 MG TabletIndicatio ns:Iron deficiency anemia secondary to inadequate dietary iron intake,Cold intolerance Take 40 mg by mouth daily. Active clindamycin (CLEOCIN) 150 MG Capsule clindamycin HCl 150 mg capsule TK ONE C PO QID TAT Active cyanocobalamin (VITAMIN B-12) 1000 MCG/ML Solution 1,000 mcg by Intramuscular route. 2 Active lisinopril (PRINIVIL, ZESTRIL) 5 MG Tablet Take 5 mg by mouth. 2 Active raNITIdine HCl 150 MG Capsule ranitidine 150 mg capsule Active metFORMIN (GLUCOPHAGE) 1000 MG Tablet 1 tab(s) orally 2 times a day for 30 day(s) Active Azelastine HCl 0.15 % Solution 2 spray(s) intranasally 2 times a day for 30 days Active tamsulosin (FLOMAX) 0.4 MG Capsule Take 1 Capsule by mouth daily. 4 Active glipiZIDE (GLUCOTROL XL) 5 MG TABLET SR 24 HR Take 5 mg by mouth daily. 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 10/30/2019 BMI 31.0-31.9,adult 09/27/2019 Gastroesophageal reflux disease 09/24/2018 Allergic rhinitis 09/24/2018 Daytime somnolence 03/20/2017 Angioedema 09/10/2015 Type 2 diabetes mellitus, uncontrolled 4 Vitamin B12 deficiency 01/16/2014 Sleep disorder 12/07/2013 Overview (10/27/2021): Sleep disorder Overview: Sleep disorder Male erectile disorder 12/07/2013 Overview (10/27/2021): Erectile dysfunction Overview: Erectile dysfunction Insomnia 04/22/2013 Hypogonadism in male 04/22/2013 Overview (10/27/2021): Hypogonadism male Overview: Hypogonadism male Hyperlipidemia 04/22/2013 Essential hypertension 04/22/2013 Asthma 04/22/2013 Anxiety 04/22/2013 Immunizations Immunization Administration Dates Next Due Covid-19, Mrna, Lnp-s, Pf, 3 0 Mcg/0.3 Ml Dose ([employer]) 05/12/2021 Influenza Vaccine,unspecifie d Formulation 03/24/2020,04/15/2019,04/19/2018,2015,04/16/2014 Influenza, High-dose, Quadrivalent 04/21/2021,,04/15/2019 Influenza, Injectable, Mdck,quadrivalent,with Preservative 05/25/2020,04/30/2019 Influenza, Seasonal, Injecta ble, Undefined 05/09/2017,04/20/2016,04/02/2015,2012 Influenza, high-dose, trivalent, PF 06/23,05/04/2019,04/15/2019,2017,05/17/2017,05/13/2016,04/10/2015 Pneumococcal Vaccine - 13 Valent 05/17/2017 Pneumococcal Vaccine Adult - 23 Valent 04/19/2018 TDAP Vaccine 05/26/2020 Family History Medical History Relation Name Comments Cancer Father Heart Disease Mother Relation Name Status Comments Father Mother Social History Tobacco Use Types Packs/Day Years Used Date Smoking Tobacco: Former Cigarettes Q uit: 1983 Smokeless Tobacco: Never Tobacco Cessation:Counseling Given: Not Answered PHQ-2 Answer Date Recorded Total Score - Questions 1-9 0 01/21 Sex and Gender Information Value Date Recorded Sex Assigned at Not on file 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 Gender Identity Not on file Sexual Orientation Not on file Last Filed Vital Signs Vital Sign Reading Time Taken Comments Blood Pressure 150/88 03/14/2024 1:11 PM CDT Pulse 84 03/14/2024 1:11 PM CDT Temperature 36.1 C (97 F) 03/14/2024 1:11 PM CDT Respiratory Rate 18 03/14/2024 1:11 PM CDT Oxygen Saturation 97% 03/14/2024 1:11 PM CDT Inhaled Oxygen Concentration - - Weight 106.1 kg (233 lb 12.8 oz) 03/14/2024 1:11 PM CDT Height 182.9 cm (6') 03/14/2024 1:11 PM CDT Body Mass Index 31.71 03/14/2024 1:11 PM CDT Plan of Treatment Upcoming Encounters Date Type Department Care Team (Late st Contact Info) Description 03/13/2025 1:00 PM CDT Office Visit [facility] [address] [address] Zachary Andrade MD [address] [place] [phone] Health Maintenance Due Date Last Done Comments Diabetes: Eye Exam 1940 Diabetes: Foot Exam 1940 Hepatitis C Virus (HCV) Screening 1940 Diabetes: Nephropathy Screening 1960 Zoster Immunization (1 of 2) 1992 Respiratory Syncytial Virus (RSV) Immunization (Adult) (1 - 1-dose 75+ series) 2017 Diabetes: Hemoglobin A1c 09/30/2021 04/02/2021 SARS-COV-2 Immunization ( season) 2024 05/24/2022, 11/02/2021, 05/12/2021, Additional history exists Influenza Immunization (#1) 2025 09/0 03/2022, 04/21/2021, 05/25/2020, Additional history exists Td Immunization Every 10 Years (Adults With 1 Tdap) 05/26/2030 05/26/2020 Pneumococcal Immunization (50+ years) Completed 04/19/2018, 05/17/2017 DTaP/Tdap/Td Immunization Discontinued 05/26/2020 Hepatitis B Immunization Aged Out No longer eligible based on patient's age to complete this topic Human Papillomavirus (HPV) Immunization Aged Out No longer eligible based on patient's age to complete this topic Meningococcal Immunization (ACWY) Aged Out No longer eligible based on patient's age to complete this topic Rotavirus Immunization Aged Out No lo nger eligible based on patient's age to complete this topic Insurance MEDICARE [facility] Care Teams Computer Game Designer Relationship Specialty Start Date End Date Zachary Andrade MD Consulting Physician Oncology 08/12/21
--- OUTSIDE RECORDS SUMMARY | 2025-02-12 15:16 | XMS_ITS | Encounter Summary ---
Author Organization [facility] Address [address] [place] [address] Care Team Providers Care Home Support Worker Name Role Phone Demarcus Mancera DO Primary Care Provider [phone] Encounter Details Date Type Department Care Team (Late st Contact Info) Description 01/18/2023 MyChart Message Enc [facility] [address] [place] [address] [employer], [facility] Provider Air Quality Message Social History Tobacco Use Types Packs/Day Years Used Date Smoking Tobacco: Former Cigarettes 1 17 08 677 1982 Smokeless Tobacco: Never Alcohol Use Standard Drinks/Week Comments Yes 0 (1 standard drink = 0.6 oz pur e alcohol) occasionally PHQ-2 Answer Date Recorded PHQ-2 Score - If the patient scores above 3, please move on to questions 3-9 2 10/01/2021 Education Answer Date Recorded What is the highest level of school you have completed or the highest degree you have received? Associate degree: occupational, technical, or vocational program 09/24/2018 Sex and Gender Information Value Date Recorded Sex Assigned at Not on file Legal Sex Male 8:24 PM CDT Gender Identity Not on file Sexual Orientation Not on file Occupation Industry Job Start Date Job End Date Not on file Not on file Not on file Not on file documented as of this encounter Plan of Treatment Not on file documented as of this encounter Visit Diagnoses Not on filedocumented in this encounter Additional Health Concerns Assessment Noted Time PHQ-9 Depression Total Score: 2 10/02/19 22 1:06 PM [employer] documented as of this encounter Care Teams Home Support Worker Relationship Specialty Start Date End Date Demarcus Mancera DO [address] [address] PCP - General INTERNAL MEDICINE 04/10/24 documented as of this encounter
--- OUTSIDE RECORDS SUMMARY | 2025-02-12 15:16 | XMS_ITS | Encounter Summary ---
Author Organization [facility] Address [address] [place] [address] Phone Care Team Providers Care Out And Out Cigar Maker Hand Name Role Phone Nish Alford MD Primary Care Provider Zachary Collazo MD Unavailable [phone] Encounter Details Date Type Department Care Team (Late st Contact Info) Description 02/28/2024 Telephone [facility] [address] [place] [address] Zachary Andrade MD [address] [place] [phone] Social History Tobacco Use Types Packs/Day Years Used Date Smoking Tobacco: Former Cigarettes Q uit: 1983 Smokeless Tobacco: Never PHQ-2 Answer Date Recorded Total Score - Questions 1-9 0 01/21 Sex and Gender Information Value Date Recorded Sex Assigned at Not on file 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 Gender Identity Not on file Sexual Orientation Not on file documented as of this encounter Plan of Treatment Upcoming Encounters Date Type Department Care Team (Late st Contact Info) Description 03/13/2025 1:00 PM CDT Office Visit [facility] [address] [address] Zachary Andrade MD [address] [place] [address] documented as of this encounter Visit Diagnoses Not on filedocumented in this encounter Care Teams Out And Out Cigar Maker Hand Relationship Specialty Start Date End Date Nish Alford MD PCP - General Internal Medicine 08/11/21 03/28/24 Zachary Andrade MD Consulting Physician Oncology 08/12/21 documented as of this encounter
--- OUTSIDE RECORDS SUMMARY | 2025-02-12 15:16 | XMS_ITS ---
Author Organization [facility] ([address]) Address [address] [place] [address] Care Team Providers Care Visual Supervisor Name Role Phone Demarcus Mancera Primary Care Provider Amy Walker Unavailable [phone] REASON FOR VISIT ARC follow-up Encounters Encounter Location Date Provider Diagnosis [facility] [address] [place] [address] 10/16/2024 Amy Ayala Plan Of Treatment Next Appt Details Provider Name:Amy simons, 05/07/2025 01:00:00 PM, [address], [place], [address], Progress Notes * Thom SIERRA JrDOB:[birth year] (84 yo M)Acc No.[id number]:10/16/2024 Progress Notes Patient: Osmin Thom LEONARD Jr Provider: Ameya Ayala MD :1940 A ge:84 Y S ex:Male Date:10/16/2024 Address[address] [id number] Pcp:Demarcus Mancera Subjective: * Chief Complaints: * 1 . ARC follow-up. * Medical History: Objective: * Vitals: Assessment: Plan: * Treatment: * Billing Information: * Visit Code: * Procedure Codes: * Electronic signature of Angelique Ayala MD on 02/12/2025 at 03:16 PM CDT Sign off status: Pending * Provider: Ameya Ayala MD Date: 10/16/2024 Generated for Christina hills/Pete/Chirag on: 0 02/12/2025 03:16 PM CDT
--- OUTSIDE RECORDS SUMMARY | 2025-02-12 15:16 | XMS_ITS | Clinical Summary ---
Author Organization [facility] Address [facility] [place] [address] Care Team Providers [employer] Counter Person Name Role Phone Demarcus Mancera DO Primary Care Provider [phone] Allergies Active Allergy Reactions Criticality Noted Date Comments Codeine Contact Dermatitis,O ther (see comment) Low 04/22/2013 Flakiness of skin Duloxetine Hcl Rash High 05/20/2022 Paroxetine Other (see comment) High 04/22/2013 Severe Depression Sulfa Antibiotics Hives High 04/22/2013 Sulfanilamide Hives High Medications fluticasone propionate 50 MCG/ACT nasal sprayIndications:A llergic rhinitis, unspecified seasonality, unspecified trigger 1 spray by Nasal route 2 (two) times daily. 16 g 1 09/25/19 19 Active triamcinolone 0.1 % creamIndications:R mary APPLY TOPICALLY TO THE AFFECTED AREA(S) TWICE DAILY. 45 g 12/31/19 21 Active albuterol sulfate HFA 108 (90 Base) MCG/ACT inhalerIndications :Mild intermittent asthma, unspecified whether complicated (HHS/HCC) INHALE 2 PUFFS BY MOUTH EVERY 4 TO 6 HOURS NEEDED AND PER THE ASTHMA ACTION PLAN 18 g 1 04/02/20 21 Active Fluticasone-Umecli din-Vilant (TRELEGY ELLIPTA) 200-62.5-25 MCG/INH AEROSOL POWDER, BREATH ACTIVATED Active azelastine 0.1 % nasal spray azelastine 137 mcg (0.1 %) nasal spray aerosol Active lisinopril (PRINIVIL) 5 MG tabletIndications: Stage 3a chronic kidney disease ([facility]/HCC) Take 1 tablet (5 mg total) by mouth daily. 90 tablet 1 05/20/20 22 Active atorvastatin (LIPITOR) 40 MG tabletIndications: Mixed hyperlipidemia Take 1 tablet (40 mg total) by mouth daily. 90 tablet 1 05/20/20 22 Active famotidine (PEPCID) 40 MG tabletIndications: Gastroesophageal reflux disease without esophagitis Take 1 tablet (40 mg total) by mouth daily. 90 tablet 1 05/20/20 22 Active cyanocobalamin (B-12) 1000 MCG/ML injectionIndicatio ns:Vitamin B12 deficiency Inject 1 mL (1,000 mcg total) into the muscle monthly. 10 mL 1 05/20/20 22 Active folic acid (FOLVITE) 1 MG tabletIndications: Healthcare maintenance Take 1 tablet by mouth once daily 90 tablet 10/13/19 23 Active Syringe/Needle, Disp, (SYRINGE 3CC/21GX1) 21G X 1 3 ML MiscIndications:Vi tamin B12 deficiency USE WITH B-12 INJECTIONS ONCE MONTHLY 12 each 10/20/19 23 Active citalopram (CELEXA) 20 MG tabletIndications: Anxiety Take 1 tablet by mouth once daily 90 tablet 11/04/19 23 Active cetirizine (ZYRTEC) 10 MG chewable tablet Chew 1 tablet (10 mg total) by mouth 2 (two) times a day. Active glipiZIDE XL 5 MG 24 hr tablet Take 1 tablet (5 mg total) by mouth daily. 01/10/20 24 Active tamsulosin (FLOMAX) 0.4 MG Cap Take 1 capsule (0.4 mg total) by mouth daily. 01/10/20 24 Active EPINEPHrine (EPIPEN 2-WINNIE) 0.3 MG/0.3ML injection Inject 0.3 mLs (0.3 mg total) into the muscle as needed. Active oxyCODONE immediate release (ROXICODONE) 5 MG immediate release tabletIndications: Acute Pain < 7 Day Supply Take 1 tablet (5 mg total) by mouth every 6 (six) hours as needed. Indications: Acute Pain < 7 Day Supply 28 tablet 04/25/20 24 Active sildenafil 100 MG tablet Take 1 tablet by mouth daily as needed. 09/09/19 16 019 Discontin ued(Order ing Physician ) Active Problems Problem Noted Date Diagnosed Date Lumbar stenosis with neurogenic claudication 08/2023 Type 2 diabetes mellitus wit h diabetic chronic kidney disease ([facility]) 05/20/2022 Stage 3a chronic kidney disease 10/01/2021 Iron deficiency anemia secon fawn to inadequate dietary iron intake 09/02/2021 Disorder of skin of trunk 07/01/2020 Localized, primary osteoarthritis of shoulder re gion 07/01/2020 Lumbar radiculopathy 07/01/2020 Lumbar spondylosis 07/01/2020 Rash 07/01/2020 Anemia, unspecified type 04/01/2020 Polyp of colon, unspecified part of colon, unspe cified type 04/01/2020 Intermittent claudication 04/01/2020 Spinal stenosis of lumbosacral region 10/30/2019 Chronic bilateral low back pain with bilateral s ciatica 10/30/2019 BMI 31.0-31.9,adult 09/27/2019 Type 2 diabetes mellitus wit hout complication, without long-term current use of insulin ([facility]) 03/29/2019 Gastroesophageal reflux dise ase, esophagitis presence not specified 09/24/2018 Allergic rhinitis, unspecifi ed seasonality, unspecified trigger 09/24/2018 Daytime somnolence 03/20/2017 Fatigue 03/20/2017 Angioedema 09/10/2015 Vitamin B12 deficiency 01/16/2014 Male erectile disorder 12/07/2013 Overview (02/12/2019): Overview: Erectile dysfunction Sleep disorder 12/07/2013 Overview (02/12/2019): Overview: Sleep disorder Anxiety 04/22/2013 Asthma ([facility]) 04/22/2013 Hyperlipidemia 04/22/2013 Essential hypertension 04/22/2013 Hypogonadism in male 04/22/2013 Overview (02/12/2019): Overview: Hypogonadism male Insomnia 04/22/2013 Resolved Problems Problem Noted Date Diagnosed Date Resolved Date Healthcare maintenance 07/01/202010/04 Type 2 diabetes mellitus, uncontrolled 04/21/2014 05/22/2022 Immunizations Immunization Administration Dates Next Due Flucelvax 2 YRS+ (Multi-Dose Vial) 05/25/2020, Fluzone High Dose - >Age 65 (Prefilled Syringe) 04/21/2021,03/24/2020,04/15/2019 H1N1 2009 Influenza Vaccine 03/24/2020,0 04/15/2019,04/19/2018,2016,05/13/2016,04/20/2016,04/02/2015,0 04/16/2014,08/02/2012 Influenza (Generic) 05/09/2017, 6,04/02/2015,2012 Influenza Adult (Generic) 04/01/2022,08/2019,07/09/2019,2018,04/30/2019,04/15/2019,04/19/2018,1 ,05/13/2016,04/10/2015, 014 Influenza Peds (Generic) 03/24/2020 PFIZER COVID-19 (ORIGINAL FORMULATION, PURPLE CAP) mRNA, LNP-S, PF, 30 MCG/0.3 ML DOSE 05/24/2022,05/12/2021 Pneumococcal (Pneumovax 23) 04/19/2018 Pneumococcal (Prevnar 13) 05/17/2017 Tdap (Generic) 05/26/2020 Family History Medical History Relation Comments Lung Cancer Father liver cancer Father Dementia Mother Heart Mother Relation Status Comments Father Mother Social History Tobacco Use Types Packs/Day Years Used Date Smoking Tobacco: Former Cigarettes 1 25 1 958 - 1982 Smokeless Tobacco: Never Tobacco Cessation:Counseling Given: Not Answered Alcohol Use Standard Drinks/Week Comments Yes 0 (1 standard drink = 0.6 oz pur e alcohol) occasionally [employer] Utilities Answer Date Recorded In the past 12 months has [employer], [employer], or water [employer] threatened to shut off services in your home? No 04/24/2024 Humiliation, Afraid, Rape, and Kick questionnair e Answer Date Recorded Within the last year, have y ou been afraid of your partner or ex-partner? No 04/24/2024 Within the last year, have y ou been humiliated or emotionally abused in other ways by your partner or ex-partner? No Within the last year, have y ou been kicked, hit, slapped, or otherwise physically hurt by your partner or ex-partner? No 04/24/2024 Within the last year, have y ou been raped or forced to have any kind of sexual activity by your partner or ex-partner? No 04/24/2024 Overall Financial Resource Strain (CARDIA) Answe r Date Recorded How hard is it for you to pa y for the very basics like food, housing, medical care, and heating? Not hard at all 04/24/2024 PHQ-2 Answer Date Recorded PHQ-2 Score - If the patient scores above 3, please move on to questions 3-9 2 10/01/2021 Hunger Vital Sign Answer Date Recorded Within the past 12 months, y ou worried that your food would run out before you got the money to buy more. Never true 04/24/20 24 Within the past 12 months, t he food you bought just didn't last and you didn't have money to get more. Never true 04/24/2024 PRAPARE - Transportation Answer Date Re corded In the past 12 months, has l ack of transportation kept you from medical appointments or from getting medications? No 08/2023 In the past 12 months, has l ack of transportation kept you from meetings, work, or from getting things needed for daily living? No 04/24/2024 Housing Stability Vital Sign Answer Chapin e Recorded In the last 12 months, was t here a time when you were not able to pay the mortgage or rent on time? No 04/24/2024 In the past 12 months, how m any times have you moved where you were living? 1 04/24/2024 At any time in the past 12 m [facility], were you homeless or living in a chcf (including now)? No 04/24/2024 Education Answer Date Recorded What is the [...] file Not on file Not on file Last Filed Vital Signs Vital Sign Reading Time Taken Comments Blood Pressure 128/61 04/25/2024 11:56 AM CDT Pulse 82 04/25/2024 11:56 AM CDT Temperature 36.5 C (97.7 F) 04/25/2024 11:56 AM CDT Respiratory Rate 16 04/25/2024 11:56 AM CDT Oxygen Saturation 94% 04/25/2024 11:56 AM CDT Inhaled Oxygen Concentration - - Weight 106.1 kg (234 lb) 04/24/2024 6:32 PM CDT Height 182.9 cm (6') 04/24/2024 6:32 PM CDT Body Mass Index 31.74 04/24/2024 6:32 PM CDT Plan of Treatment Health Maintenance Due Date Last Done Comments Kidney Health Evaluation 1942 Zoster Vaccines (1 of 2) 1992 Annual Medicare Wellness Visit 2007 RSV Immunization or 60+ Years (1 - 1-dose 75+ series) 2017 Hemoglobin A1C 09/30/2021 04/02/2021, 06/0 03/2021, 07/01/2020, Additional history exists Lipid Panel 04/14/2022 04/14/2021, 090 07/2019, 03/22/2019, Additional history exists Diabetes: Retinopathy Eye Exam 11/23/2023 11/22/2021 COVID-19 Vaccine ( season) 2024 05/24/2022, 11/02/2021, 05/12/2021, Additional history exists PHQ-2 (Physician False Pass) 07/24/2024 DTaP, Tdap and Td Vaccines (2 - Td or Tdap) 05/26/2030 05/26/2020 Pneumococcal Vaccine: 50+ Years Completed 04/19/2018, 05/17/2017 Meningococcal B Vaccine Aged Out No l onger eligible based on patient's age to complete this topic Meningococcal Vaccine Aged Out No ryley pablo eligible based on patient's age to complete this topic RSV Immunizations Under 20 Months Aged Out No longer eligible based on patient's age to complete this topic Goals Goal Patient Goal Type Associated Problems Recent Progress Patient-Stated? Author Family - family caregiver with be involved in care transitions and discharge planning Lifestyle No Beka Cesar, RN Medical Devices Implanted Type Area Summer Sessions Director Device Identifier Shelf Expiration Date Model / Serial / Lot Setscrew Implanted:Qty: 4 on 04/24/2024 by Leanne Durham MD at [facility] Screw N/A: Spine Lumbar ORTHOFIX 36-2001 / / 6.5x55 Screw Implanted:Qty: 2 on 04/24/2024 by Leanne Durham MD at [facility] Screw N/A: Spine Lumbar ORTHOFIX 44-5655 / / 6.5x50 Screw Implanted:Qty: 2 on 04/24/2024 by Leanne Durham MD at [facility] Screw N/A: Spine Lumbar ORTHOFIX 44-5650 / / Nxg Head Implanted:Qty: 4 on 04/24/2024 by Leanne Durham MD at [facility] N/A: Spine Lumbar ORTHOFIX 36-2101 / / 45 Neeraj Implanted:Qty: 2 on 04/24/2024 by Leanne Durham MD at [facility] N/A: Spine Lumbar 52-6045 / / Procedures Procedure Name Priority Date/Time Associated Diagnosis Comments DIABETIC RETINOPATHY EXAM (NEGATIVE)(SCAN ORDER) Routine 11/22/2021 LIPID PANEL Routine 04/14/2021 10:31 AM CDT HEMOGLOBIN, GLYCOSYLATED Routine 04/02/2021 Type 2 diabetes mellitus without complication, without long-term current use of insulin from Last 3 Months or Most Recently Relevant to Health Maintenance Results * DIABETIC RETINOPATHY EXAM (NEGATIVE)(SCAN) (11/22/2021) us Documents Scanned SCANNING Final Result [facility] * (ABNORMAL) LIPID PANEL (04/14/2021 10:31 AM CDT) CHOLESTEROL 144 <200 mg/dL [facility] HDL 31(L) > OR = 40 mg/dL [facility] TRIGLYCERIDES 223(H) <150 mg/dL [facility] Comment: If a non-fasting specimen was collected, consider repeat triglyceride testing on a fasting specimen if clinically indicated. Marbella et al. J. of Clin. Lipidol. 2015;9:129-169. LDL (CALCULATED) 82 mg/dL (calc) [facility] Comment: Reference range: <100 Desirable range <100 mg/dL for primary prevention; <70 mg/dL for patients with CHD or diabetic patients with > or = 2 CHD risk factors. LDL-C is now calculated using the Mark-[place]in[place] calculation, which is a validated novel method providing better accuracy than the Friedewald equation in the estimation of LDL-C. Mark SS et al. LISSA. 2013;310(19): 1528-8256 (http://education.EcoloCap/faq/EFF371) CHOL/HDL RATIO 4.6 <5.0 (calc) [facility] NON HDL CHOLESTEROL 113 <130 mg/dL (calc) [facility] Comment: For patients with diabetes plus 1 major ASCVD risk factor, treating to a non-HDL-C goal of <100 mg/dL (LDL-C of <70 mg/dL) is considered a therapeutic option. 04/14/2021 10:3 1 AM CDT 04/14/2021 10:34 AM CDT Narrative [facility] - 04/15/2021 6:24 AM CDT FASTING:YES FASTING: YES Nish Alford MD LABORATORY Final Re sult Performing Organization Address City/[facility]/ZIP Co de Phone Number [facility] [address] [place] [address] * HEMOGLOBIN, GLYCOSYLATED (04/02/2021) HGB A1C 6.5 % [id number] ANASTASIA RAYMOND 04/02/2021 Nish Alford MD LABORATORY Final Re sult Performing Organization Address City/[facility]/ZIP Co de Phone Number [phone], [place] [address] [place] [address], from Last 3 Months or Most Recently Relevant to Health Maintenance Insurance MEDICARE [facility] Advance Directives * Full Code (Latest Code Status on File) Date Activated Date Inactivated Comments 04/24/2024 5:59 PM 04/25/2024 4:58 PM Care Teams [employer] Counter Person Relationship Specialty Start Date End Date Demarcus Mancera DO [address] [address] PCP - General INTERNAL MEDICINE 04/10/24
== END 2025-02-12 15:12 | disposition home or self-care (01) ==
LOC: ANHIMG 15:14
PROVIDERS: PCP Internal Medicine; Visit Provider Neurological Surgery
DX: Z98.1 Arthrodesis status (principal); M47.896 Other spondylosis, lumbar region
CPT/HCPCS: 72110; 72131; 74176

== ENCOUNTER 2025-03-20 09:16 | Outpatient (CLI) | payer MEDICARE, SELFPAY ==
--- OUTSIDE RECORDS SUMMARY | 2024-10-16 12:30 | XMS_ITS ---
Author Organization [facility] [place] ([address]) Address [address] [place] [address] Care Team Providers Care Log Pond Worker Name Role Phone Demarcus Mancera Primary Care Provider Amy Walker Unavailable [phone] REASON FOR VISIT ARC follow-up Encounters Encounter Location Date Provider Diagnosis [facility] [address] [place] [address] 10/16/2024 Amy Ayala Plan Of Treatment Next Appt Details Provider Name:Amy simons, 05/07/2025 01:00:00 PM, [address], [address], [place], [address], Progress Notes * Thom SIERRA JrDOB:[birth year] (84 yo M)Acc No.[id number]:10/16/2024 Progress Notes Patient: Osmin Thom LEONARD Jr Provider: Ameya Ayala MD :1940 A ge:84 Y S ex:Male Date:10/16/2024 Address[address] [place], [id number] Pcp:Demarcus Mancera Subjective: * Chief Complaints: * 1 . ARC follow-up. * Medical History: Objective: * Vitals: Assessment: Plan: * Treatment: * Billing Information: * Visit Code: * Procedure Codes: * Electronic signature of Angelique Ayala MD on 03/20/2025 at 09:20 AM CDT Sign off status: Pending * Provider: Amyea Ayala MD Date: 0 10/16/2024 Generated for Christina hills/Pete/Chirag on: 0 03/20/2025 09:20 AM CDT
--- OUTSIDE RECORDS SUMMARY | 2025-03-20 09:20 | XMS_ITS | Clinical Summary ---
Author Organization [facility] Address [facility] [place] [address] Care Team Providers Care Tow Feeder Name Role Phone Demarcus Mancera DO Primary Care Provider [phone] Allergies Active Allergy Reactions Criticality Noted Date [...] MG tabletIndications: Stage 3a chronic kidney disease ([facility]/HCC) Take 1 tablet (5 mg total) by [...] mellitus wit h diabetic chronic kidney disease ([facility]) 05/20/2022 Stage 3a chronic kidney disease 10/01/2021 [...] complication, without long-term current use of insulin ([facility]) 03/29/2019 Gastroesophageal reflux dise ase, esophagitis presence not specified 09/24/2018 Allergic rhinitis, unspecifi ed seasonality, unspecified trigger 09/24/2018 Daytime somnolence 03/20/2017 Fatigue 03/20/2017 Angioedema 09/10/2015 Vitamin B12 deficiency 01/16/2014 Male erectile disorder 12/07/2013 Overview (02/12/2019): Overview: Erectile dysfunction Sleep disorder 12/07/2013 Overview (02/12/2019): Overview: Sleep disorder Anxiety 04/22/2013 Asthma ([facility]) 04/22/2013 Hyperlipidemia 04/22/2013 Essential hypertension 04/22/2013 Hypogonadism [...] = 0.6 oz pur e alcohol) occasionally [employer] Utilities Answer Date Recorded In the past 12 months has [employer], [place], or water [employer] threatened to shut off services in your [...] any time in the past 12 m [facility], were you homeless or living in a prison (including now)? No 04/24/2024 Education Answer Date [...] 11/02/2021, 05/12/2021, Additional history exists PHQ-2 (Physician [place]) 07/24/2024 DTaP, Tdap and Td Vaccines (2 [...] Cesar, RN Medical Devices Implanted Type Area Residence Life Coordinator Device Identifier Shelf Expiration Date Model / Serial / Lot Setscrew Implanted:Qty: 4 on 04/24/2024 by Leanne Durham MD at [facility] Screw N/A: Spine Lumbar ORTHOFIX 36-2001 / / 6.5x55 Screw Implanted:Qty: 2 on 04/24/2024 by Leanne Durham MD at [facility] Screw N/A: Spine Lumbar ORTHOFIX 44-5655 / / 6.5x50 Screw Implanted:Qty: 2 on 04/24/2024 by Leanne Durham MD at [facility] Screw N/A: Spine Lumbar ORTHOFIX 44-5650 / / Nxg Head Implanted:Qty: 4 on 04/24/2024 by Leanne Durham MD at [facility] N/A: Spine Lumbar ORTHOFIX 36-2101 / / 45 Neeraj Implanted:Qty: 2 on 04/24/2024 by Leanne Durham MD at [facility] N/A: Spine Lumbar 52-6045 / / Procedures [...] LDL-C. Mark SS et al. LISSA. 2013;310(19): 4336-4549 (http://education.RedCritter/faq/WIK578) CHOL/HDL RATIO 4.6 <5.0 (calc) [facility] [...] LABORATORY Final Re sult Performing Organization Address City/[facility]/ZIP Co de Phone Number [facility] [address] [place] [address] * HEMOGLOBIN, GLYCOSYLATED (04/02/2021) HGB A1C 6.5 % [id number] ANASTASIA RAYMOND 04/02/2021 Nish Alford MD LABORATORY Final Re sult Performing Organization Address City/[facility]/ZIP Co de Phone Number [phone], [place] [address] [place] [address], from Last 3 Months or Most Recently Relevant to Health Maintenance Insurance MEDICARE [facility] Advance Directives * Full Code (Latest Code Status on File) Date Activated Date Inactivated Comments 04/24/2024 5:59 PM 04/25/2024 4:58 PM Care Teams Tow Feeder Relationship Specialty Start Date End Date Demarcus Mancera DO [address] [address] PCP - General INTERNAL MEDICINE 04/10/24
--- OUTSIDE RECORDS SUMMARY | 2025-03-20 09:20 | XMS_ITS | Clinical Summary ---
Author Organization [facility] Address [address] [place] [address] Phone Care Team Providers Care Heading Repairer Name Role Phone Osbaldo Alexis DO Primary Care Provider [phone] Allergies Active Allergy Reactions Criticality Noted Date Comments Codeine 01/19/2022 Paroxetine 01/19/2022 Sulfa Antibiotics 01/19/2022 Medications albuterol HFA (PROVENTIL HFA) 108 (90 Base) MCG/ACT inhaler Inhale 2 puffs every 6 (six) hours if needed for wheezing Active atorvastatin (LIPITOR) 40 MG tablet Take 40 mg by mouth 1 (one) time each day Active azelastine (ASTELIN) 0.1 % nasal spray 1 spray Use in each nostril as directed Active cetirizine (ZyrTEC) 10 MG tablet Take 10 mg by mouth 2 (two) times a day Active citalopram (CeleXA) 20 MG tablet Take 20 mg by mouth 1 (one) time each day Active cyanocobalamin (VITAMIN B-12) 1000 MCG/ML injection Inject 1,000 mcg into the shoulder, thigh, or buttocks every 30 (thirty) days Active famotidine (PEPCID) 40 MG tablet Take 40 mg by mouth 1 (one) time each day Active ferrous sulfate 325 (65 Fe) MG tablet Take 325 mg by mouth 1 (one) time each day with breakfast Active fluticasone (FLONASE) 50 MCG/ACT nasal spray Administer 1 spray into each nostril 2 (two) times a day Shake gently. Before first use, prime pump. After use, clean tip and replace cap. Active Fluticasone-Ume clidin-Vilant (Trelegy Ellipta) 200-62.5-25 MCG/INH aerosol powder Inhale Active folic acid (FOLVITE) 1 MG tablet Take 1 mg by mouth 1 (one) time each day Active lisinopril (PRINIVIL) 5 MG tablet Take 5 mg by mouth 1 (one) time each day Active metFORMIN (GLUCOPHAGE) 1000 MG tablet Take 1,000 mg by mouth 2 (two) times a day with meals Active omeprazole OTC (PriLOSEC OTC) 20 MG EC tablet Take 20 mg by mouth 1 (one) time each day Active triamcinolone (KENALOG) 0.1 % cream Apply topically 2 (two) times a day Active Active Problems Problem Noted Date Diagnosed Date Essential hypertension 08/08/2023 Chronic kidney disease stage 3B 01/19/2022 Other iron deficiency anemia 01/19/2022 Type 2 diabetes mellitus 01/19/2022 Resolved Problems Problem Noted Date Diagnosed Date Resolved Date Spinal stenosis 01/26/2022 07/27/2023 Family History Medical History Relation Comments Cancer Father Heart disease Mother Relation Status Comments Father Mother Social History Tobacco Use Types Packs/Day Years Used Date Smoking Tobacco: Former Cigarettes 1 1 958 1982 Smokeless Tobacco: Never Tobacco Cessation:Counseling Given: Not Answered Alcohol Use Standard Drinks/Week Comments Yes 0 (1 standard drink = 0.6 oz pur e alcohol) Occasional Sex and Gender Information Value Date Recorded Sex Assigned at Not on file Legal Sex Male 10:46 AM MDT Gender Identity Not on file Sexual Orientation Not on file Last Filed Vital Signs Vital Sign Reading Time Taken Comments Blood Pressure 131/81 08/09/2022 2:43 PM GASOLINE ATTENDANT Pulse 84 08/09/2022 2:43 PM GASOLINE ATTENDANT Temperature - - Respiratory Rate - - Oxygen Saturation - - Inhaled Oxygen Concentration - - Weight 103 kg (226 lb) 08/08/2023 9:15 AM GASOLINE ATTENDANT Height 182.9 cm (6') 08/08/2023 9:15 AM GASOLINE ATTENDANT Body Mass Index 30.65 08/08/2023 9:15 AM GASOLINE ATTENDANT Plan of Treatment Health Maintenance Due Date Last Done Comments Diabetic Foot Exam 1950 Ophthalmology Exam 1950 Pneumococcal PPSV23/PCV13 65 + Years / High and Highest Risk (2 of 4 - PPSV23, PCV20, or PCV21) 07/12/2017 05/17/2017 Influenza Vaccine (#1) 2025 2, 05/25/2020, 05/25/2020, Additional history exists Insurance MEDICARE [facility] Care Teams Heading Repairer Relationship Specialty Start Date End Date Osbaldo Alexis DO [address] [facility] [address] [place] [address] PCP - General Internal Medicine 08/08/23
--- OUTSIDE RECORDS SUMMARY | 2025-03-20 09:20 | XMS_ITS | Patient Health Record ---
Author Organization [facility] ([address]) Address [address] [place] [address] Care Team Providers Care Knurling Machine Tender Name Role Phone Demarcus Mancera Primary Care Provider Amy Walker Unavailable [phone] Allergies Allergen (clinical drug ingredient) Drug/Non Drug Allergy documented on EMR Reaction Allergy Type Onset Date Status Substance with sulfonamide structure and antibacterial mechanism of action (substance) SULFA (uncoded) hands peeling skin Allergy Active duloxetine Cymbalta Unknown Drug Allergy Active paroxetine Paxil depression and suicidal thoughts Drug Allergy Active codeine Codeine hyperactivity Drug Allergy Act reny Results Component Value Reference Range Notes Spirometry Reviewed date: Interpretation:Abnormal Performing Lab: Notes/Report: Abnormal SpiroPreBronchodilator_FVC 2.93 SpiroPostBronchodilator_FEF25_75 0 SpiroPreBronchodilator_FEF25_75 1.91 SpiroPreBronchodilator_FEV1 2.31 SpiroPrecentPredictionPost_FEF25_75 0 SpiroPrecentPredictionPost_FEV1 0 SpiroPrecentPredictionPost_FEV1_OVER_FVC 0 SpiroPrecentPredictionPost_FVC 0 SpiroPrecentPredictionPre_FEF25_75 69.5 SpiroPrecentPredictionPre_FEV1 68.3 SpiroPrecentPredictionPre_FEV1_OVER_FVC 106 SpiroPrecentPredictionPre_FVC 64.1 SpiroPredicted_FEF25_75 2.75 SpiroPreBronchodilator_FEV1_OVER_FVC 78.7 SpiroPreBronchodilator_PEF 5.64 SpiroPostBronchodilator_FVC 0 SpiroPostBronchodilator_FEV1 0 SpiroPostBronchodilator_FEV1_OVER_FVC 0 SpiroPostBronchodilator_PEF 0 SpiroPredicted_FVC 4.57 SpiroPredicted_FEV1 3.38 SpiroPredicted_FEV1_OVER_FVC 74.25 SpiroPredicted_PEF 8.33 Reason For Referral No Information Medications Medication SIG (Take, Route, Frequency, Duration) Notes Start Date End Date Status Trelegy Ellipta 200-62.5-25 MCG/ACT 1 puff Inhalation Once a day Active Azelastine HCl 137 MCG/SPRAY 2 sprays in each nostril Nasally Twice a day; Duration: 30 days Active Albuterol Sulfate HFA 108 (90 Base) MCG/ACT 2 puffs as needed Inhalation every 4 hrs; Duration: 30 days Active ATORVASTATIN 40 mg 1 tab(s) orally once a day; Duration: 30 day(s) Active METFORMIN 1000 mg 1 tab(s) orally 2 times a day; Duration: 30 day(s) Not-Taking FAMOTIDINE 40 mg 1 tab(s) orally once a day (at bedtime) Active HYDROCHLOROTHIAZIDE -TRIAMTERENE 50 mg-75 mg ; Duration: 90 Active FOLIC ACID 1 mg TAKE 1 TABLET BY MOUTH ONCE DAILY Diagnosis Unavailable; Duration: 90 Active LISINOPRIL 5 mg ; Duration: 30 Active CYANOCOBALAMIN 1000 mcg/mL INJECT 1ML INTRAMUSCULARLY ONCE MONTHLY; Duration: 90 Active Azithromycin 250 MG as directed Orally 2 tabs x 1 day then 1 x 4 days; Duration: 5 days 02/05/2025 Active CELEXA 20 mg 1 tab(s) orally once a day; Duration: 30 day(s) 04/27/2022 Active AEROCHAMBER PLUS N/A as directed use with inhaler use with inhaler as directed Active EPIPEN 2-GARFIELD 0.3 mg 0.3 mg intramuscularly once; Duration: 1 days Active ZYRTEC 10 mg 1 tab(s) orally bid; Duration: 90 days Active EpiPen 2-Garfield 0.3 MG/0.3ML 0.3 mg intramuscularly once; Duration: 1 days Active PROAIR HFA CFC FREE 90 MCG/INH 2 PUFF(S) INHALED Q4-6 HOURS, PRN AND PER THE ASTHMA ACTION PLAN; Duration: 30 DAY(S) *Please review for potential replacement for e-prescription and drug interaction check* Active Triamterene-HCTZ 75-50 MG ; Duration: 90 Active Immunizations Vaccine Route Administration Date Status Comme nts NOC Pneumovax 23 Unknown 10/03/2017 Refused NOC Influenza-Fluzone Unknown 05/04/2019 Administered NOC Influenza-Fluzone Unknown 07/09/2019 Administered NOC Tdap Unknown 05/26/2020 Administered Fluzone Quadrivalent Unknown 04/02/2015 Administered Fluzone Quadrivalent Unknown 05/09/2017 Administered Influenza Unknown 04/20/2016 Administered NOC Fluzone Quadrivalent Unknown 10/03/2017 Refused NOC Fluzone Quadrivalent Unknown 06/13/2018 Refused NOC Fluzone Quadrivalent Unknown 10/17/2018 Refused Flucelvax Unknown 04/30/2019 Administered NOC Flucelevax Quadrivalent Unknown 05/25/2020 Administ ered NOC Flucelevax Quadrivalent Unknown 05/25/2020 Administ ered Covid 19 (Pfizer) Unknown 10/01/2020 Administered Social History Tobacco Use: Social History Observation Description Date Details (start date - stop date) Never Smoker NA - NA Tobacco Control (Standard) Question Answer Notes Tobacco use: Nonsmoker AUDIT-C (Standard) Question Answer Notes Did you have a drink containing alcohol in the p ast year? No Points 0 Interpretation Negative Problems Problem Type SNOMED Code ICD Code Onset Dates Problem Status W/U Status Risk Notes Problem Allergy status t o other antibiotic agents status (Z88.1) Active confirmed Problem Idiopathic urticaria (06633618) Idiopathic urticaria (L50.1) Active confirmed Problem Angioneurotic edema (13821793) Angioneurotic edema, initial encounter (T78.3XXA) Active confirmed Problem Common cold (88087857) Acute nasopharyngitis [common cold] (J00) Active confirmed Problem Uncomplicated moderate persistent asthma (788011831) Moderate persistent asthma, uncomplicated (J45.40) Active confirmed Problem Exacerbation of moderate persistent asthma (disorder) (863613270) Moderate persistent asthma with (acute) exacerbation (J45.41) Active confirmed Problem Localized skin eruption due to drugs and medicaments taken internally (L27.1) Active confirmed Problem Cough (55907540) Cough (R05) Active confirmed Problem Angioneurotic edema (36296136) Angioneurotic edema, subsequent encounter (T78.3XXD) Active confirmed Problem Allergic rhinitis caused by pollen (disorder) (89133415) Allergic rhinitis due to pollen (J30.1) Active confirmed Problem Acute sinusitis (20055092) Acute sinusitis, unspecified (J01.90) Active confirmed Problem Allergy to penicillin (50443742) Allergy status to penicillin (Z88.0) Active confirmed Problem Allergy status t o other antibiotic agents (Z88.1) Active confirmed Vital Signs Blood pressure diastolic 68 mm Hg 02/05/2025 Oximetry 97 % 02/05/2025 Height 72 in 02/05/2025 Blood pressure systolic 122 mm Hg 02/05/2025 Weight 235.4 lbs 02/05/2025 BMI 31.92 kg/m2 02/05/2025 Encounters Encounter Location Date Provider Diagnosis [facility] [address] [address] 02/05/2025 Amy Ayala Moderate persistent asthma, uncomplicated J45.40 ; Moderate persistent asthma with (acute) exacerbation J45.41 ; Angioneurotic edema, subsequent encounter T78.3XXD ; Idiopathic urticaria L50.1 ; Allergic rhinitis due to pollen J30.1 ; Allergy status to penicillin Z88.0 and Allergy status to other antibiotic agents Z88.1 [facility] [address] [address] 10/09/2024 Amy Ayala Moderate persistent asthma, uncomplicated J45.40 ; Angioneurotic edema, subsequent encounter T78.3XXD ; Idiopathic urticaria L50.1 ; Allergic rhinitis due to pollen J30.1 ; Allergy status to penicillin Z88.0 and Allergy status to other antibiotic agents Z88.1 [facility] [address] [address] 05/22/2024 Amy Ayala Moderate persistent asthma, uncomplicated J45.40 ; Angioneurotic edema, subsequent encounter T78.3XXD ; Idiopathic urticaria L50.1 ; Allergic rhinitis due to pollen J30.1 ; Allergy status to other antibiotic agents status Z88.1 and Allergy status to penicillin Z88.0 [address] [address] [place] [address] 02/05/2025 Amy Ayala Assessments Encounter Date Diagnosis (ICD Code) Assessment Notes Treatment Notes Treatment Clinical Notes Section Notes 05/22/2024 Moderate persistent asthma, uncomplicated (ICD-10 - J45.40) Well controlled with Trelegy. Spirometry earlier this year was normal and ACT 22. Held on spirometry today due to recent back surgery. Continue albuterol prn. Asthma action plan reviewed. 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 Continue Zyrtec 10 mg BID and we discussed adding Famotidine 40 mg BID to his regimen. No cause found in the past for angioedema. EpiPen to be carried at all times. 10/09/2024 Moderate persistent asthma, uncomplicated (ICD-10 - J45.40) Well controlled with Trelegy. Spirometry today shows possible restriction. Normal at last appointment. ACT 23. Plan to continue Trelegy and samples given. Spirometry changes may be due to running out of Trelegy. Continue albuterol prn. Asthma action plan reviewed. 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 Continue Zyrtec 10 mg BID and we discussed adding Famotidine 40 mg BID to his regimen. No cause found in the past for angioedema. EpiPen to be carried at all times. 02/05/2025 Moderate persistent asthma, uncomplicated (ICD-10 - J45.40) 02/05/2025 Moderate persistent asthma with (acute) exacerbation (ICD-10 - J45.41) Current flare and did not want spirometry performed today. Samples of Trelegy given. Start azithromycin and we discussed further prednisone but no improvement with 2 prior courses. We discussed daily Trelegy and albuterol to be used prn. ACT 15. Call office if no improvement in the next few days. 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 Continue Zyrtec 10 mg BID and we discussed adding Famotidine 40 mg BID to his regimen. No cause found in the past for angioedema. EpiPen to be carried at all times. 05/22/2024 Idiopathic urticaria (ICD-10 - L50.1) Plan as above, idiopathic urticaria and angioedema 10/09/2024 Idiopathic urticaria (ICD-10 - L50.1) Plan as above, idiopathic urticaria and angioedema 02/05/2025 Idiopathic urticaria (ICD-10 - L50.1) Plan as above, idiopathic urticaria and angioedema 10/09/2024 Allergic rhinitis due to pollen (ICD-10 - J30.1) Thom has allergic rhinitis and received SCIT for over 5 years about 20 years ago without improvement in his congestion and rhinorrhea. ImmunoCAPs showed sensitivity to aspergillus, ragweed, and cedar tree. Continue Flonase or Astelin for current symptoms 05/22/2024 Allergic rhinitis due to pollen (ICD-10 - J30.1) Thom has allergic rhinitis and received SCIT for over 5 years about 20 years ago without improvement in his congestion and rhinorrhea. ImmunoCAPs showed sensitivity to aspergillus, ragweed, and cedar tree. Continue Flonase or Astelin for current symptoms 05/22/2024 Allergy status to other antibiotic agents status (ICD-10 - Z88.1) Thom developed peeling skin on his hands after taking most likely Bactrim. Recommend continued avoidance. 10/09/2024 Allergy status to penicillin (ICD-10 - Z88.0) Thom developed a rash on day #5 of penicillin for dental implant . Consider skin testing and challenge in the future 02/05/2025 Allergic rhinitis due to pollen (ICD-10 - J30.1) Thom has allergic rhinitis and received SCIT for over 5 years about 20 years ago without improvement in his congestion and rhinorrhea. ImmunoCAPs showed sensitivity to aspergillus, ragweed, and cedar tree. Continue Flonase or Astelin for current symptoms 02/05/2025 Allergy status to penicillin (ICD-10 - Z88.0) Thom developed a rash on day #5 of penicillin for dental implant . Consider skin testing and challenge in the future 10/09/2024 Allergy status to other antibiotic agents (ICD-10 - Z88.1) Thom developed peeling skin on his hands after taking most likely Bactrim. Recommend continued avoidance. 05/22/2024 Allergy status to penicillin (ICD-10 - Z88.0) Thom developed a rash on day #5 of penicillin for dental implant -2017. Consider skin testing and challenge in the future 02/05/2025 Allergy status to other antibiotic agents (ICD-10 - Z88.1) Thom developed peeling skin on his hands after taking most likely Bactrim. Recommend continued avoidance. 10/09/2024 Other 05/22/2024 Other 02/05/2025 Other Plan Of Treatment Pending Test Test Name Order Date Spirometry 02/05/2025 Next Appt Details Provider Name:Amy simons, 05/07/2025 01:00:00 PM, [address] [facility], [address], [address], Insurance Providers Payer Name Payer Address Payer Phone Subscriber Number Group Number Insured Name Patient Relationship to Insured Coverage Start Date Coverage End Date [employer] (Medicare) Attention Claims [address] [facility] [address] [id number] Thom Sierra Self - patient is the insured [facility] [address] [place] [address] [id number] Thom Sierra Self - patient is the insured Medical (General) History Medical History History ICD Code Type II diabetes. Type II diabetes Moderate persistent asthma, uncomplicate d J45.40 Surgical History Surgery Date(Month/Year) Nasal Surgery 2005 & 2006 Bilateral Carpal Tunnel Repair 1999 Cataract Surgery 2013 Dental Implant 2013 Dental Implant 01/2018 back surgery 04/2024 Hospitalization History Reason Date(Month/Year) See Above
--- OUTSIDE RECORDS SUMMARY | 2025-03-20 09:20 | XMS_ITS | Clinical Summary ---
Author Organization 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
--- OUTSIDE RECORDS SUMMARY | 2025-03-20 09:21 | XMS_ITS | Encounter Summary ---
Author Organization [facility] Address [address] [place] [address] Care Team Providers Care Photo Cartographer Name Role Phone Demarcus Mancera DO Primary Care Provider [phone] Encounter Details Date Type Department Care Team (Late st Contact Info) Description 01/18/2023 MyChart Message Enc [facility] [address] [place] [address] [employer], [facility] Provider Air Quality Message Social History Tobacco Use Types Packs/Day Years Used Date Smoking Tobacco: Former Cigarettes 1 17 08 684 1982 Smokeless Tobacco: Never Alcohol Use Standard [...] Total Score: 2 10/02/19 22 1:06 PM SMOKING TOBACCO PACKING MACHINE HAND documented as of this encounter Care Teams Photo Cartographer Relationship Specialty Start Date End Date Demarcus Mancera DO [address] [address] PCP - General INTERNAL MEDICINE 04/10/24 documented as of this encounter
--- NOTE | 2025-03-20 13:17 | WPDPFTINT ---
PFT Procedure Performed PFT Procedure Performed Spirometry with Pre/Post Bronchodilator Plethysmography (Lung Vol) Diffusing Cap (DLCO) Flow Vol Loop PFT Interpretation This is a pulmonary function test with pre and post-bronchodilator spirometry, plethysmography and diffusing capacity. The test was performed and results interpreted in accordance with the 2019 and 2005 ATS/ERS Task Force guidelines respectively using the Global Lung Function Initiative-2012 reference equations. Patient demonstrated good effort and cooperation. Reproducibility criteria were met. The quality of the pre bronchodilator spirometry maneuver was Grade A and post bronchodilator spirometry maneuver was Grade A. Findings: Spirometry: The contour the inspiratory and expiratory flow tracing are normal. The pre bronchodilator FVC is 4.22 L, 103% predicted. The pre bronchodilator FEV1 is 2.74 L, 91% predicted. The pre bronchodilator FEV1: FVC ratio 65%. The post bronchodilator FVC is 4.11 L, representing a 3% decrease. The post bronchodilator FEV1 is 2.63 L, representing a 4% decrease. The post bronchodilator FEV1: FVC ratio 64%. Plethysmography: The total lung capacity is 7.38 L, 99% predicted. The functional residual capacity is 3.51 L, 86% predicted. The residual volume is 3.10 L, 110% predicted. Diffusing capacity: The diffusing capacity unadjusted for hemoglobin and carboxyhemoglobin is 22.5, 93% predicted. The diffusing capacity adjusted for alveolar volume is 3.80, 110% predicted. Impression: The spirometry is normal without evidence of an obstructive abnormality. There is no significant improvement after inhaling a single dose of albuterol. The lung volumes are normal. The diffusing capacity is normal. There are no prior studies for comparison
--- NOTE | 2025-03-20 13:20 | WPDSIXMINUTE ---
Six Minute Walk Procedure Procedure Performed Pulmonary Stress Test (6 min walk) Six Minute Walk Six Minute Walk: This is a 6 minute walk test. The test was performed and interpreted in accordance with the 2014 ERS/ATS task force guidelines. Findings: The patient's resting room air oxygen saturation measured by pulse oximetry was 97%, the heart rate was 87 bpm, and the modified Derek dyspnea score was 0. Patient ambulated for 335 meters and oxygen saturation remained 96 to 98%. At the end of the study the heart rate was 112 bpm and the modified Derek dyspnea score was 3. The patient did not qualify for supplemental oxygen at rest or with ambulation. There are no prior studies for comparison.
== END 2025-03-20 09:17 | disposition home or self-care (01) ==
PROVIDERS: PCP Internal Medicine; Visit Provider Physician Assistant
DX: J44.9 Chronic obstructive pulmonary disease, unspecified (principal)
CPT/HCPCS: 94060; 94618; 94726; 94729

== ENCOUNTER 2025-04-09 09:34 | Outpatient (CLI) | payer MEDICARE, SELFPAY ==
--- OUTSIDE RECORDS SUMMARY | 2024-05-08 12:30 | XMS_ITS ---
Author Organization [facility] [place] ([address]) Address [address] [place] [address] Care Team Providers Care Medical Transcription Editor Name Role Phone Demarcus Mancera Primary Care Provider Amy Walker Unavailable [phone] REASON FOR VISIT AR[facility] follow-up Encounters Encounter Location Date Provider Diagnosis [facility] [address] [place] [address] 05/08/2024 Amy Ayala Plan Of Treatment Next Appt Details Provider Name:Amy simons, 05/07/2025 01:00:00 PM, [address], [place], [address], Progress Notes * Thom SIERRA JrDOB:[birth year] (84 yo M)Acc No.[id number]:05/08/2024 Progress Notes Patient: Osmin Thom LEONARD Jr Provider: Ameya Ayala MD :1940 A ge:83 Y S ex:Male Date:05/08/2024 Address[address] [place], [id number] Pcp:Demarcus Mancera Subjective: * Chief Complaints: * 1 . [facility]C follow-up. * Medical History: Objective: * Vitals: Assessment: Plan: * Treatment: * Billing Information: * Visit Code: * Procedure Codes: * Electronic signature of Angelique Ayala MD on 04/09/2025 at 10:29 AM CDT Sign off status: Pending * Provider: Ameya Ayala MD Date: Generated for Christina hills/Pete/Chirag on: 0 04/09/2025 10:29 AM CDT
--- OUTSIDE RECORDS SUMMARY | 2024-10-16 12:30 | XMS_ITS ---
Author Organization [facility] [place] ([address]) Address [address] [place] [address] Care Team Providers Care Refractory Tile Helper Name Role Phone Demarcus Mancera Primary Care Provider Amy Walker Unavailable [phone] REASON FOR VISIT ARC follow-up Encounters Encounter Location Date Provider Diagnosis [facility] [address] [place] [address] 10/16/2024 Amy Ayala Plan Of Treatment Next Appt Details Provider Name:Amy simons, 05/07/2025 01:00:00 PM, [address], [address], [place], [address], Progress Notes * Thom SIERRA JrDOB:[birth year] (84 yo M)Acc No.[id number]:10/16/2024 Progress Notes Patient: Osmin Thom LEONARD Jr Provider: Ameya Ayala MD :1940 A ge:84 Y S ex:Male Date:10/16/2024 Address:[address] [place], [id number] Pcp:Demarcus Mancera Subjective: * Chief Complaints: * 1 . ARC follow-up. * Medical History: Objective: * Vitals: Assessment: Plan: * Treatment: * Billing Information: * Visit Code: * Procedure Codes: * Electronic signature of Angelique Ayala MD on 04/09/2025 at 10:29 AM CDT Sign off status: Pending * Provider: Ameya Ayala MD Date: 0 10/16/2024 Generated for Christina hills/Pete/Chirag on: 0 04/09/2025 10:29 AM CDT
--- NOTE | ~2025-04-09 | MR_ITS ---
EXAMINATION: MR lumbar spine wo con, 04/09/2025 9:49 CDT HISTORY: M54.50 - Low back pain, unspecified COMPARISON: 11/28/2023 TECHNIQUE: Multi-planar multi-sequence images were obtained of the lumbar spine without contrast per protocol. FINDINGS: Moderate loss of vertebral height throughout with remote anterior superior endplate fracture of L4 with posterior fixation of L4 on L5, artifact limits evaluation. Grade 1 anterolisthesis of L4 on L5. Marrow signal is appropriate with scattered areas of subcentimeter hemangioma formation. The remaining visualized posterior elements are unremarkable Conus terminates at T12-L1, there is no abnormal signal within the cord Moderate loss of disc height throughout most marked at T12-L1, L1-2 and L2-3 as well as L3-4 with moderate to severe disc desiccation and endplate degenerative changes The soft tissues demonstrate atrophy of the kidneys with subcentimeter probable renal cysts L5-S1: Circumferential bulging of the disc with ligamentum flavum and facet hypertrophy. Mild bilateral foramina and lateral recess stenosis, no canal stenosis. L4-5: Circumferential bulging of the disc with ligamentum flavum and facet hypertrophy. Mild bilateral foramina and lateral recess stenosis, no canal stenosis. L3-4: Circumferential bulging of the disc with ligamentum flavum and facet hypertrophy. Moderate bilateral foramina and lateral recess stenosis, mild canal stenosis. L2-L3: Circumferential bulging of the disc with no canal or foraminal stenosis L1-L2: Circumferential bulging of the disc with moderate bilateral foramina stenosis, no lateral recess or canal stenosis. IMPRESSION: Postsurgical and degenerative changes detailed above Reviewed, dictated and finalized at location A.
--- OUTSIDE RECORDS SUMMARY | 2025-04-09 10:29 | XMS_ITS | Clinical Summary ---
Author Organization [facility] Address [address] [place] [address] Phone Care Team Providers Care Coke Crusher Operator Name Role Phone Osbaldo Alexis DO Primary Care Provider Allergies Active Allergy Reactions Criticality Noted Date [...] Comments Blood Pressure 131/81 08/09/2022 2:43 PM MEDICAL ADMINISTRATIVE TECHNICIAN Pulse 84 08/09/2022 2:43 PM MEDICAL ADMINISTRATIVE TECHNICIAN Temperature - - Respiratory Rate - - Oxygen Saturation - - Inhaled Oxygen Concentration - - Weight 103 kg (226 lb) 08/08/2023 9:15 AM MEDICAL ADMINISTRATIVE TECHNICIAN Height 182.9 cm (6') 08/08/2023 9:15 AM MEDICAL ADMINISTRATIVE TECHNICIAN Body Mass Index 30.65 08/08/2023 9:15 AM MEDICAL ADMINISTRATIVE TECHNICIAN Plan of Treatment Health Maintenance Due Date Last Done Comments Diabetic Foot Exam 1950 Ophthalmology Exam 1950 Pneumococcal PPSV23/PCV13 65 + Years / High and Highest Risk (2 of 4 - PPSV23, PCV20, or PCV21) 07/12/2017 05/17/2017 Influenza Vaccine (#1) 2025 2, 05/25/2020, 05/25/2020, Additional history exists Insurance MEDICARE [facility] Care Teams Coke Crusher Operator Relationship Specialty Start Date End Date Osbaldo Alexis DO [address] [facility] [address] [place] [address] PCP - General Internal Medicine 08/08/23
--- OUTSIDE RECORDS SUMMARY | 2025-04-09 10:30 | XMS_ITS | Clinical Summary ---
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
--- OUTSIDE RECORDS SUMMARY | 2025-04-09 10:30 | XMS_ITS | Patient Health Record ---
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) Active confirmed Problem Angioneurotic edema (53023478) Angioneurotic edema, initial encounter (T78.3XXA) Active confirmed Problem Common cold (61478911) Acute nasopharyngitis [common cold] (J00) Active confirmed Problem Uncomplicated moderate persistent asthma (481271249) Moderate persistent asthma, uncomplicated (J45.40) Active confirmed Problem Exacerbation of moderate persistent asthma (disorder) (672562339) Moderate persistent asthma with (acute) exacerbation (J45.41) Active confirmed Problem Localized skin eruption due to drugs and medicaments taken internally (L27.1) Active confirmed Problem Cough (23976027) Cough (R05) Active confirmed Problem Angioneurotic edema (83212297) Angioneurotic edema, subsequent encounter (T78.3XXD) Active confirmed Problem Allergic rhinitis caused by pollen (disorder) (57386031) Allergic rhinitis due to pollen (J30.1) Active confirmed Problem Acute sinusitis (35160973) Acute sinusitis, unspecified (J01.90) Active confirmed Problem Allergy to penicillin (85633497) Allergy status to penicillin (Z88.0) Active confirmed Problem Allergy status t o other antibiotic agents (Z88.1) Active confirmed Vital Signs Oximetry 97 % 02/05/2025 Blood pressure diastolic 68 mm Hg 02/05/2025 Height 72 in 02/05/2025 Blood pressure systolic 122 mm Hg 02/05/2025 Weight 235.4 lbs 02/05/2025 BMI 31.92 kg/m2 02/05/2025 Encounters Encounter Location Date Provider Diagnosis [facility] [address] [address] 02/05/2025 Amy Ayala Moderate persistent asthma, uncomplicated J45.40 ; Moderate persistent asthma with (acute) exacerbation J45.41 ; Angioneurotic edema, subsequent encounter T78.3XXD ; Idiopathic urticaria L50.1 ; Allergic rhinitis due to pollen J30.1 ; Allergy status to penicillin Z88.0 and Allergy status to other antibiotic agents Z88.1 [facility] [address] [address] 10/09/2024 Amy Ayala Moderate persistent asthma, uncomplicated J45.40 ; Angioneurotic edema, subsequent encounter T78.3XXD ; Idiopathic urticaria L50.1 ; Allergic rhinitis due to pollen J30.1 ; Allergy status to penicillin Z88.0 and Allergy status to other antibiotic agents Z88.1 [facility] [address] [address] 05/22/2024 Amy Ayala Moderate persistent asthma, uncomplicated J45.40 ; Angioneurotic edema, subsequent encounter T78.3XXD ; Idiopathic urticaria L50.1 ; Allergic rhinitis due to pollen J30.1 ; Allergy status to other antibiotic agents status Z88.1 and Allergy status to penicillin Z88.0 [address] [address] [place] [address] 02/05/2025 Amy Ayala Assessments Encounter Date Diagnosis [...] most likely Bactrim. Recommend continued avoidance. 05/22/2024 Other 10/09/2024 Other 02/05/2025 Other Plan Of Treatment Pending Test Test Name Order Date Spirometry 02/05/2025 Next Appt Details Provider Name:Amy simons, 05/07/2025 01:00:00 PM, [address] [facility], [address], [address], Insurance Providers Payer Name Payer Address Payer Phone Subscriber Number Group Number Insured Name Patient Relationship to Insured Coverage Start Date Coverage End Date [employer] (Medicare) Attention Claims [address] [place] [address] [id number] Thom Sierra Self - patient is the insured [facility] [address] [place] [address] [id number] Thom Sierra Self - patient is the [...]
== END 2025-04-09 09:35 | disposition home or self-care (01) ==
PROVIDERS: PCP Internal Medicine; Visit Provider Neurological Surgery
DX: M54.50 Low back pain, unspecified (principal); Z98.1 Arthrodesis status
CPT/HCPCS: 72148

== ENCOUNTER 2025-05-02 12:51 | Outpatient (CLI) | payer MEDICARE, SELFPAY | END 2025-05-02 12:52 | disposition home or self-care (01) | LOC: ANHAUDIO 12:52 | PROVIDERS: PCP Internal Medicine; Visit Provider Internal Medicine | DX: H90.41 Sensorineural hearing loss, unilateral, right ear, with unrestricted hearing on the contralateral side (principal) | CPT/HCPCS: 92557; 92567 ==